=== PATIENT | female | born 1950 | race Caucasian/White ===

== ENCOUNTER → 2020-05-12 10:16 | Outpatient (BNVA) | payer MEDICARE, SELFPAY | PROVIDERS: PCP Internal Medicine; Visit Provider Internal Medicine | DX: J84.10 Pulmonary fibrosis, unspecified (principal); J44.9 Chronic obstructive pulmonary disease, unspecified; R05 Cough | CPT/HCPCS: 99212 ==

== ENCOUNTER 2020-06-07 11:47 | Outpatient (REF) | payer MEDICARE, SELFPAY ==
--- NOTE | 2020-06-07 12:37 | XR_ITS ---
EXAMINATION: XR SINUSES CLINICAL INFORMATION: Left cheek pain. Evaluate for sinusitis. COMPARISON: None TECHNIQUE: 4 views of the paranasal sinuses FINDINGS: The paranasal sinuses are well aerated and clear. No opacification or air-fluid levels to suggest sinusitis is seen. Bony structures are unremarkable. XR/XR sinus <3V IMPRESSION: Unremarkable examination.
[2020-06-07 13:31] LABS: MANUAL DIFF FLAG NO
[2020-06-07 13:37] LABS: Basophils Percent Auto 0.5 % (0-2); Eosinophils Absolute Auto 0.2 X10*3/uL (0.0-0.4); Eosinophils Percent Auto 1.9 % (0-4); Hemoglobin 13.5 g/dl (12.0-16.0); Imm Gran Abs Auto 0.04 X10*3/uL (0.00-0.03); Imm Gran Pct Auto 0.5 % (0.0-0.4); Lymphocytes Absolute Auto 2.2 X10*3/uL (1.2-4.9); Lymphocytes Percent Auto 25.2 % (20-40); Mean Corpuscular HGB Conc 32.1 g/dl (31.0-35.0); Mean Corpuscular Hemoglobin 31.7 pg (27.0-33.0); Mean Corpuscular Volume 98.6 fL (80-98); Mean Platelet Volume 9.6 fL (9.4-12.3); Monocytes Absolute Auto 0.8 X10*3/uL (0.1-1.2); Monocytes Percent Auto 9.3 % (2-11); Neutrophils Absolute Auto 5.5 X10*3/uL (2.0-8.3); Neutrophils Percent Auto 62.6 % (45-73); Platelet Count 230 X10*3/uL (160-400); Red Blood Count 4.26 X10*6/uL (4.20-5.50); Red Cell Distribution Width 12.8 % (11.0-16.0); White Blood Count 8.7 X10*3/uL (4.8-10.8)
[2020-06-07 13:52] LABS: Alanine Aminotransferase 12 U/L (0-31); Albumin Level 3.7 g/dL (3.5-5.0); Alkaline Phosphatase 124 U/L (39-117); Anion Gap 14 (12-20); Aspartate Amino Transferase 16 U/L (5-31); Bilirubin Total 0.3 mg/dL (0.0-1.0); Blood Urea Nitrogen 12 mg/dL (9-16); C Reactive Protein 4.85 mg/dL (< or = 0.50); Calcium 9.4 mg/dL (8.4-10.2); Carbon Dioxide 30 mmol/L (22-29); Chloride 106 mmol/L (96-108); Estimated Glomerular Filt Rate 52; Glucose Random 146 mg/dL (60-115); Potassium 3.9 mmol/l (3.3-5.1); Sodium 146 mmol/L (135-145); Total Protein 7.5 g/dL (6.5-8.0)
[2020-06-07 14:34] LABS: Glucose Urine UA NEG (NEG); Leukocyte Esterase Urine NEG (NEG); Nitrite Urine NEG (NEG); Specific Gravity - Urine 1.025 (1.005-1.025); Urine Blood NEG (NEG); Urine Ketones 5 MG/DL (NEG); Urine Protein NEG (NEG-TRACE)
[2020-06-07 14:41] LABS: Appearance Urine CLEAR; Color Urine YELLOW
== END 2020-06-07 11:48 | disposition home or self-care (01) ==
LOC: HO.LAB 11:47
PROVIDERS: PCP Internal Medicine; Visit Provider Internal Medicine
DX: R07.89 Other chest pain (principal); J45.909 Unspecified asthma, uncomplicated; R10.9 Unspecified abdominal pain; N18.9 Chronic kidney disease, unspecified
CPT/HCPCS: 36415; 70210; 80053; 81003; 85025; 86140; 87086

== ENCOUNTER 2020-06-08 14:57 | Emergency (ER) | payer MEDICARE, SELFPAY ==
[2020-06-08 19:16] VITALS: BP 151/92; PULSE 86; RESP 18; TEMP 36.9; O2SAT 94; BMI 30.2
[2020-06-08 23:25] VITALS: BP 176/90; PULSE 78; RESP 16; TEMP 37; O2SAT 94
--- NOTE | 2020-06-08 23:26 | ECG_ITS ---
Test Reason : ABDNORMAL LABS Blood Pressure : / mmHG Vent. Rate : 074 BPM Atrial Rate : 074 BPM P-R Int : 124 ms QRS Dur : 084 ms QT Int : 336 ms P-R-T Axes : 050 012 033 degrees QTc Int : 372 ms Normal sinus rhythm Possible Left atrial enlargement Nonspecific ST and T wave abnormality Abnormal ECG When compared with ECG of 02-FEB-2018 21:15, Nonspecific T wave abnormality now evident in Inferior leads Nonspecific T wave abnormality, worse in Lateral leads QT has shortened Referred By: Pratibha Egan Electronically Signed By:KARLA COFFEY MD
--- NOTE | 2020-06-08 23:30 | ED.ABDPAIN ---
HPI - Abdominal Pain General Chief Complaint: Recheck/Abnormal Lab/Rx Stated Complaint: abd pain Time Seen by Provider: 06/08/20 23:17 Source: patient Mode of arrival: ambulatory Limitations: no limitations History of Present Illness HPI narrative: Patient comes to emergency room accompanied by her daughter. Patient states that for 3 weeks she has been complaining of bilateral lower quadrant pain. Patient states that she has tried Pepto-Bismol to help the pain but it is not working. Patient also tried milk of magnesia since she does not know if she is constipated. Patient states over the last week the pain has gradually been getting worse. Patient denies vomiting, no nausea. Patient states the pain started gradually but over the last week it has become worse. Related Data Home Medications Medication Instructions Recorded Confirmed albuterol sulfate 90 mcg/actuation 2 puff INHALATION Q6H PRN 05/12/20 aerosol inhaler benzonatate 200 mg capsule 200 mg PO TID 05/12/20 donepezil 5 mg tablet 5 mg PO DAILY 05/12/20 famotidine 40 mg tablet 40 mg PO DAILY 05/12/20 montelukast 10 mg tablet 10 mg PO DAILY 05/12/20 sertraline 50 mg tablet 50 mg PO DAILY 05/12/20 Previous Rx's Medication Instructions Recorded benzonatate 200 mg capsule 200 mg PO BID-TID PRN 30 Days #60 05/12/20 cap fluticasone propionate 110 2 puff INHALATION BID 30 Days #12 g 05/12/20 mcg/actuation HFA aerosol inhaler salmeterol 50 mcg/dose blister 1 inh INHALATION Q12H 30 Days #60 05/12/20 powder for inhalation ea prednisone 5 mg tablet See Rx Instructions PO .COMPLEX 05/26/20 #35 tab budesonide 180 mcg/actuation 1 inh INHALATION BID 30 Days #1 ea 05/27/20 breath activated powder inhaler ciprofloxacin HCl 500 mg PO BID #13 tab 06/09/20 metronidazole 500 mg PO BID #13 tab 06/09/20 tramadol 50 mg PO Q8H PRN #10 tab 06/09/20 Allergies Allergy/AdvReac Type Severity Reaction Status Date / Time latex [LATEX] Allergy Intermediate RASH Verified 05/12/20 10:28 Review of Systems Review of Systems Constitutional : No Weight loss, No Fever, No Chills, No Night Sweats, No Fatigue, No Malaise ENT/Mouth : No Hearing loss, No Ear Pain, No Nasal Congestion, No Sinus Pain, No Hoarseness, No sore throat, No Rhinorrhea, No Swallowing Difficulty Eyes: No Eye Pain, No Swelling, No Redness, No Foreign Body, No Discharge, No Vision Changes Cardiovascular : No Chest Pain, No SOB, No Dyspnea on Exertion, No Orthopnea, No Edema, No Palpitations Respiratory : Chronic Cough from COPD and pulmonary fibrosis, No Sputum, chronic Wheezing without exacerbation, No Smoke Exposure, No Dyspnea Gastrointestinal : Occasional Nausea, No Vomiting, No Diarrhea, No Constipation, no hematochezia, no melena, complaining of sharp bilateral lower quadrant pain Genitourinary : no irregular bleeding, No Dysuria, No Urinary Frequency, No Hematuria, No Urinary Incontinence, No Urgency, No Flank Pain, No Urinary Flow Changes, No Hesitancy Musculoskeletal : No joint pain, No Myalgias, No Joint Swelling Skin : No Skin Lesions, No rash Neuro : No Weakness, No Numbness, No Paresthesias, No Loss of Consciousness, No Dizziness, No Headache Psych : No Anxiety/Panic, No Depression, No SI/HI/AH/VH, No Social Issues, Heme/Lymph: No Bruising, No Bleeding,No Lymphadenopathy Endocrine : No Polyuria, No Polydipsia, No Temperature Intolerance Physical Exam Vital Signs: Vital Signs: Last Vital Signs Temp 98.6 F 06/08/20 23:25 Pulse 78 06/08/20 23:25 Resp 16 06/08/20 23:25 BP 176/90 H 06/08/20 23:25 Pulse Ox 94 06/08/20 23:25 Body Mass Index 30.2 Appearance: Alert. Oriented X3. No acute distress. Very anxious, tearful Eyes: Pupils equal, round and reactive to light. ENT: Pharynx normal. Neck: Normal inspection. Neck supple. No lymph nodes noted. No crepitus CVS: Normal heart rate and rhythm. Pulses normal. Normal S1 and S2 Respiratory: No respiratory distress. Breath sounds normal. Mild bilateral Wheezing. No rales Abdomen: Soft, tender to palpation over both lower quadrants, worse on the right lower quadrant, No rigidity. No distention. good BS x4 Skin: Skin warm and dry. Normal skin color. Normal skin turgor. Extremities: No lower extremity edema. No lower extremity edema. No Lacerations. No Rash Neuro: Oriented X 3. No motor deficit. No sensory deficit. Moving all extermities. No slurred speech. Course Course Course Narrative: On abdominal CT scan, it was noted the patient's lung bases look abnormal, therefore we ordered a chest CT as well. I discussed the CT scan with the patient, patient has likely diverticulitis. Patient states that she feels much better now after the IV medication. I discussed with the patient staying in the hospital for pain control versus being discharged home with p.o. antibiotics, patient decided to be discharged home. First dose of levofloxacin and Flagyl was given in the emergency room. Patient instructed to lemon picker her antibiotics tomorrow in her pharmacy. MDM - Abdominal Pain Lab Data Result diagrams: 06/08/20 23:37 06/08/20 23:37 Labs: Lab Results 06/08/20 06/08/20 06/08/20 Range/Units 23:37 23:37 23:37 WBC 9.6 (4.8-10.8) X10*3/uL RBC 3.98 L (4.20-5.50) X10*6/uL Hgb 12.9 (12.0-16.0) g/dl Hct 38.6 (37-47) % MCV 97.0 (80-98) fL MCH 32.4 (27.0-33.0) pg MCHC 33.4 (31.0-35.0) g/dl RDW 12.7 (11.0-16.0) % Plt Count 197 (160-400) X10*3/uL MPV 9.1 L (9.4-12.3) fL Immature Gran % (Auto) 0.5 H (0.0-0.4) % Neut % (Auto) 62.5 (45-73) % Lymph % (Auto) 26.7 (20-40) % [place] % (Auto) 8.5 (2-11) % Eos % (Auto) 1.5 (0-4) % Baso % (Auto) 0.3 (0-2) % Lymph # (Auto) 2.6 (1.2-4.9) X10*3/uL [place] # (Auto) 0.8 (0.1-1.2) X10*3/uL Eos # (Auto) 0.1 (0.0-0.4) X10*3/uL Baso # (Auto) 0.0 (0.0-0.2) X10*3/uL Abs Immat Gran (auto) 0.05 H (0.00-0.03) X10*3/uL Absolute Neuts (auto) 6.0 (2.0-8.3) X10*3/uL Absolute Nucleated RBC 0.000 (0.0-0.012) X10*3/uL Nucleated RBC % (auto) 0.0 (0.0-0.2) /100WBC Sodium 144 (135-145) mmol/L Potassium 3.8 (3.3-5.1) mmol/l Chloride 105 (96-108) mmol/L Carbon Dioxide 29 (22-29) mmol/L Anion Gap 14 (12-20) BUN 14 (9-16) mg/dL Creatinine 0.94 (0.5-1.4) mg/dL Estim Creat Clear Calc 46.7 Estimated GFR 59 Random Glucose 94 D (60-115) mg/dL Calcium 9.2 (8.4-10.2) mg/dL Total Bilirubin 0.4 (0.0-1.0) mg/dL Direct Bilirubin 0.2 (0.0-0.5) mg/dL AST 14 (5-31) U/L ALT 11 (0-31) U/L Alkaline Phosphatase 120 H (39-117) U/L Total Protein 7.4 (6.5-8.0) g/dL Albumin 3.7 (3.5-5.0) g/dL Lipase 14 (8-78) U/L Imaging Data Chest and abdomen CT: Radiologist's impression: FINDINGS: -CHEST- LUNG: Again seen are diffuse interstitial opacities in both lungs with both interlobular and intralobular septal thickening, somewhat more pronounced at the bases. No significant superimposed airspace consolidation. Subtle micronodular opacities are present in both lungs, most pronounced in the lung apices. There is a mild bronchiectasis are evident in the lower lobes. No dense airspace consolidation. There is subtle peripheral nodularity and architectural distortion along the fissures. Small cystic changes are present at the periphery of the right lower lobe medially, not yet constituting honeycombing. MEDIASTINUM: There is mild left atrial enlargement. No pericardial effusion. Prevascular lymph nodes measure up to 0.9 cm in diameter without deven adenopathy. No hilar adenopathy. Thyroid gland and esophagus are unremarkable. PERICARDIUM/PLEURA: No significant effusion. No pleural mass or thickening. CHEST WALL/AXILLA: Unremarkable. -ABDOMEN/PELVIS- LIVER, GALLBLADDER, BILIARY TREE: The liver is normal in size, shape, and attenuation. No focal hepatic lesion or biliary ductal dilatation is present. Gallbladder is surgically absent. Common bile duct is mildly dilated (9 mm), likely related to prior cholecystectomy. PANCREAS: Normal; no mass or surrounding fluid. SPLEEN: Normal size. No focal lesion. ADRENAL GLANDS: Normal; no mass. KIDNEYS AND URETERS: Unchanged 2.2 cm cyst at the right upper renal pole, fluid density. Parapelvic cyst is present in the left renal sinus. No hydronephrosis or nephrolithiasis. Mild left renal cortical thinning. Distal ureters are partially obscured by the metal artifact from the hip prosthesis. BLADDER: Partially obscured by the metal artifact from the hip prostheses. No focal abnormalities are identified. GASTROINTESTINAL TRACT: There is wall thickening at the sigmoid colon with severe diverticulosis. Mild fat stranding is seen within this region as seen on coronal images, most notably. Assessment is somewhat obscured by the artifact emanating from the hip prostheses. Mild acute diverticulitis is suspected, superimposed upon chronic diverticulosis with hypertrophy of the muscularis propria. Stomach, small bowel, and colon are normal in caliber. Small hiatal hernia. Appendix is normal. ABDOMINAL WALL: No significant hernia is appreciated. VASCULATURE: Atherosclerotic calcifications are present in the abdominal aorta and iliac arteries. No aneurysmal dilatation. LYMPH NODES: No adenopathy.. PELVIC VISCERA: Uterus and ovaries are obscured by the metal artifact from hip prostheses. Uterus may be surgically absent. OSSEUS STRUCTURES: Prosthetic components of the total hip arthroplasties appear appropriately positioned without acute complications. Mild degenerative spondylosis is present in the thoracolumbar spine. No acute osseous findings. CT/CT abdomen pelvis w con IMPRESSION: 1. Marked sigmoid diverticulosis with mild surrounding fat stranding, concerning for acute diverticulitis. Assessment is somewhat limited by artifact from the adjacent hip prostheses. 2. Progression of the chronic interstitial lung disease in the chest with increased internal interlobular septal thickening and subtle areas of bronchiectasis. In the absence of clear honeycombing, the appearance is not specific, though UIP pattern would be most likely. 3. Mild left atrial enlargement. ECG Data Attestation: I personally reviewed and interpreted this ECG as follows: (Sinus rhythm , heart rate 74, QTC 372, no ST segment depressions or elevations, no T-wave inversions.) Discharge Plan Discharge Clinical Impression: Diverticulitis Patient Disposition: Home, Self-Care Instructions: Diverticulitis (ED), Diverticulitis Diet (ED) Additional Instructions: If you have any worsening abdominal pain, please return to emergency room. Please follow-up with your primary care physician tomorrow. If you have any worsening or new symptoms, please return to the emergency room or call 911 Prescriptions: New metronidazole 500 mg tablet 500 mg PO BID Qty: 13 RF: 0 ciprofloxacin HCl 500 mg tablet 500 mg PO BID Qty: 13 RF: 0 tramadol 50 mg tablet 50 mg PO Q8H PRN (Reason: pain) Qty: 10 RF: 0 No Action prednisone 5 mg tablet See Rx Instructions PO .COMPLEX Qty: 35 RF: 1 Pulmicort Flexhaler 180 mcg/actuation aerosol powdr breath activated 1 inh inhalation BID 30 Days Qty: 1 RF: 3 famotidine 40 mg tablet 40 mg PO DAILY RF: 0 sertraline 50 mg tablet 50 mg PO DAILY RF: 0 montelukast 10 mg tablet 10 mg PO DAILY RF: 0 donepezil 5 mg tablet 5 mg PO DAILY RF: 0 benzonatate 200 mg capsule 200 mg PO TID RF: 0 albuterol sulfate [Ventolin HFA] 90 mcg/actuation HFA aerosol inhaler 2 puff inhalation Q6H PRNRF: 0 Serevent Diskus 50 mcg/dose blister with device 1 inh inhalation Q12H 30 Days Qty: 60 RF: 5 benzonatate 200 mg capsule 200 mg PO BID-TID PRN (Reason: cough) 30 Days Qty: 60 RF: 5 Flovent HFA 110 mcg/actuation HFA aerosol inhaler 2 puff inhalation BID 30 Days Qty: 12 RF: 5 Interventions: ED Discharge Assessment Last Done: 06/09/20 02:35 Discharge Date/Time: 06/09/20 02:36 [facility] Past Medical History Medical History COPD (chronic obstructive pulmonary disease) Cough Pulmonary fibrosis Social History Social History Advance Directives: No
[2020-06-08] MEDS: ondansetron HCL 4 MG/2 ML VIAL IVPUSH (23:39)
[2020-06-08] MEDS: 0.9 % Sodium Chloride 1,000 ML 999 ML IVCONT (23:39)
[2020-06-08] MEDS: Morphine Sulfate 2 MG/ML CARTRIDGE IVPUSH (23:39)
[2020-06-08 23:45] LABS: MANUAL DIFF FLAG NO
[2020-06-08 23:46] LABS: Basophils Percent Auto 0.3 % (0-2); Eosinophils Absolute Auto 0.1 X10*3/uL (0.0-0.4); Eosinophils Percent Auto 1.5 % (0-4); Hematocrit 38.6 % (37-47); Hemoglobin 12.9 g/dl (12.0-16.0); Imm Gran Abs Auto 0.05 X10*3/uL (0.00-0.03); Imm Gran Pct Auto 0.5 % (0.0-0.4); Lymphocytes Absolute Auto 2.6 X10*3/uL (1.2-4.9); Lymphocytes Percent Auto 26.7 % (20-40); Mean Corpuscular HGB Conc 33.4 g/dl (31.0-35.0); Mean Corpuscular Hemoglobin 32.4 pg (27.0-33.0); Mean Platelet Volume 9.1 fL (9.4-12.3); Monocytes Absolute Auto 0.8 X10*3/uL (0.1-1.2); Monocytes Percent Auto 8.5 % (2-11); Neutrophils Percent Auto 62.5 % (45-73); Platelet Count 197 X10*3/uL (160-400); Red Blood Count 3.98 X10*6/uL (4.20-5.50); Red Cell Distribution Width 12.7 % (11.0-16.0); White Blood Count 9.6 X10*3/uL (4.8-10.8)
--- NOTE | 2020-06-09 | CT_ITS ---
EXAMINATION: CT CHEST WITH CONTRAST CT ABDOMEN AND PELVIS WITH CONTRAST CLINICAL INFORMATION: Reason for Exam bilateral lower quadrant pain, worse RLQ . Abnormal lung seen on abdominal CT. COMPARISON: 11/21/2019 TECHNIQUE: Multidetector volumetric imaging was performed from the thoracic inlet through the pubic symphysis following administration of intravenous contrast material. A total of 85.3 mL Omnipaque 300 was administered intravenously. Sagittal and coronal images were reformatted. This CT examination was performed using dose optimization techniques as appropriate, variously including the following: *Automated exposure control *Adjustment of mA and/or kV according to patient size (this includes techniques or standardized protocols for targeted exams where dose is matched to indication/reason for exam; i.e. extremities or head) *Use of iterative reconstruction technique DOSE: 824 mGy-cm FINDINGS: -CHEST- LUNG: Again seen are diffuse interstitial opacities in both lungs with both interlobular and intralobular septal thickening, somewhat more pronounced at the bases. No significant superimposed airspace consolidation. Subtle micronodular opacities are present in both lungs, most pronounced in the lung apices. There is a mild bronchiectasis are evident in the lower lobes. No dense airspace consolidation. There is subtle peripheral nodularity and architectural distortion along the fissures. Small cystic changes are present at the periphery of the right lower lobe medially, not yet constituting honeycombing. MEDIASTINUM: There is mild left atrial enlargement. No pericardial effusion. Prevascular lymph nodes measure up to 0.9 cm in diameter without deven adenopathy. No hilar adenopathy. Thyroid gland and esophagus are unremarkable. PERICARDIUM/PLEURA: No significant effusion. No pleural mass or thickening. CHEST WALL/AXILLA: Unremarkable. -ABDOMEN/PELVIS- LIVER, GALLBLADDER, BILIARY TREE: The liver is normal in size, shape, and attenuation. No focal hepatic lesion or biliary ductal dilatation is present. Gallbladder is surgically absent. Common bile duct is mildly dilated (9 mm), likely related to prior cholecystectomy. PANCREAS: Normal; no mass or surrounding fluid. SPLEEN: Normal size. No focal lesion. ADRENAL GLANDS: Normal; no mass. KIDNEYS AND URETERS: Unchanged 2.2 cm cyst at the right upper renal pole, fluid density. Parapelvic cyst is present in the left renal sinus. No hydronephrosis or nephrolithiasis. Mild left renal cortical thinning. Distal ureters are partially obscured by the metal artifact from the hip prosthesis. BLADDER: Partially obscured by the metal artifact from the hip prostheses. No focal abnormalities are identified. GASTROINTESTINAL TRACT: There is wall thickening at the sigmoid colon with severe diverticulosis. Mild fat stranding is seen within this region as seen on coronal images, most notably. Assessment is somewhat obscured by the artifact emanating from the hip prostheses. Mild acute diverticulitis is suspected, superimposed upon chronic diverticulosis with hypertrophy of the muscularis propria. Stomach, small bowel, and colon are normal in caliber. Small hiatal hernia. Appendix is normal. ABDOMINAL WALL: No significant hernia is appreciated. VASCULATURE: Atherosclerotic calcifications are present in the abdominal aorta and iliac arteries. No aneurysmal dilatation. LYMPH NODES: No adenopathy.. PELVIC VISCERA: Uterus and ovaries are obscured by the metal artifact from hip prostheses. Uterus may be surgically absent. OSSEUS STRUCTURES: Prosthetic components of the total hip arthroplasties appear appropriately positioned without acute complications. Mild degenerative spondylosis is present in the thoracolumbar spine. No acute osseous findings. CT/CT abdomen pelvis w con IMPRESSION: 1. Marked sigmoid diverticulosis with mild surrounding fat stranding, concerning for acute diverticulitis. Assessment is somewhat limited by artifact from the adjacent hip prostheses. 2. Progression of the chronic interstitial lung disease in the chest with increased internal interlobular septal thickening and subtle areas of bronchiectasis. In the absence of clear honeycombing, the appearance is not specific, though UIP pattern would be most likely. 3. Mild left atrial enlargement.
[2020-06-09 00:17] LABS: Alanine Aminotransferase 11 U/L (0-31); Albumin Level 3.7 g/dL (3.5-5.0); Alkaline Phosphatase 120 U/L (39-117); Anion Gap 14 (12-20); Aspartate Amino Transferase 14 U/L (5-31); Bilirubin Direct 0.2 mg/dL (0.0-0.5); Bilirubin Total 0.4 mg/dL (0.0-1.0); Blood Urea Nitrogen 14 mg/dL (9-16); Calcium 9.2 mg/dL (8.4-10.2); Carbon Dioxide 29 mmol/L (22-29); Chloride 105 mmol/L (96-108); Creatinine Clr Calc Pharmacy 46.7; Estimated Glomerular Filt Rate 59; Glucose Random 94 mg/dL (60-115); Lipase 14 U/L (8-78); Potassium 3.8 mmol/l (3.3-5.1); Sodium 144 mmol/L (135-145); Total Protein 7.4 g/dL (6.5-8.0)
--- NOTE | 2020-06-09 01:03 | PC.NURSE ---
update given to family in [place].
[2020-06-09] MEDS: iohexoL 350 MG/ML 100 ML INFUS..BTL 85 ML IV (01:07)
[2020-06-09] MEDS: metroNIDAZOLE 500 MG TABLET PO (02:22)
[2020-06-09] MEDS: levoFLOXacin 500 MG TABLET PO (02:23)
== END 2020-06-09 02:36 | disposition home or self-care (01) ==
PROVIDERS: Emergency Provider Emergency Medicine; PCP Internal Medicine
DX: K57.32 Diverticulitis of large intestine without perforation or abscess without bleeding (principal); R10.30 Lower abdominal pain, unspecified; R79.89 Other specified abnormal findings of blood chemistry; Z79.899 Other long term (current) drug therapy
CPT/HCPCS: 36415; 71260; 74177; 80048; 80076; 83690; 85025; 93005; 96361; 96374; 96375; 99283; 99284; J2270; J2405; Q9967

== ENCOUNTER 2020-06-21 11:41 | Outpatient (REF) | payer MEDICARE, SELFPAY ==
[2020-06-21 13:50] LABS: MANUAL DIFF FLAG NO
[2020-06-21 13:59] LABS: Basophils Absolute Auto 0.1 X10*3/uL (0.0-0.2); Basophils Percent Auto 0.5 % (0-2); Eosinophils Absolute Auto 0.3 X10*3/uL (0.0-0.4); Eosinophils Percent Auto 2.5 % (0-4); Hematocrit 39.5 % (37-47); Hemoglobin 12.5 g/dl (12.0-16.0); Imm Gran Abs Auto 0.09 X10*3/uL (0.00-0.03); Imm Gran Pct Auto 0.8 % (0.0-0.4); Lymphocytes Absolute Auto 2.1 X10*3/uL (1.2-4.9); Lymphocytes Percent Auto 19.1 % (20-40); Mean Corpuscular HGB Conc 31.6 g/dl (31.0-35.0); Mean Corpuscular Hemoglobin 30.9 pg (27.0-33.0); Mean Corpuscular Volume 97.8 fL (80-98); Mean Platelet Volume 9.7 fL (9.4-12.3); Monocytes Absolute Auto 0.9 X10*3/uL (0.1-1.2); Monocytes Percent Auto 7.8 % (2-11); Neutrophils Absolute Auto 7.6 X10*3/uL (2.0-8.3); Neutrophils Percent Auto 69.3 % (45-73); Platelet Count 332 X10*3/uL (160-400); Red Blood Count 4.04 X10*6/uL (4.20-5.50); Red Cell Distribution Width 12.8 % (11.0-16.0)
[2020-06-21 14:14] LABS: Glucose Urine UA NEG (NEG); Leukocyte Esterase Urine NEG (NEG); Nitrite Urine NEG (NEG); PH 5.5 (5.0-8.0); Specific Gravity - Urine >= 1.030 (1.005-1.025); Urine Blood NEG (NEG); Urine Ketones NEG (NEG); Urine Protein NEG (NEG-TRACE)
[2020-06-21 14:19] LABS: Alanine Aminotransferase 7 U/L (0-31); Albumin Level 3.4 g/dL (3.5-5.0); Alkaline Phosphatase 92 U/L (39-117); Anion Gap 14 (12-20); Aspartate Amino Transferase 11 U/L (5-31); Bilirubin Total 0.3 mg/dL (0.0-1.0); Blood Urea Nitrogen 8 mg/dL (9-16); C Reactive Protein 7.59 mg/dL (< or = 0.50); Calcium 9.2 mg/dL (8.4-10.2); Carbon Dioxide 28 mmol/L (22-29); Chloride 106 mmol/L (96-108); Estimated Glomerular Filt Rate > 60; Glucose Random 138 mg/dL (60-115); Sodium 144 mmol/L (135-145); Total Protein 7.3 g/dL (6.5-8.0)
[2020-06-21 14:22] LABS: Appearance Urine HAZY; Color Urine YELLOW
== END 2020-06-21 11:42 | disposition home or self-care (01) ==
LOC: HO.10HDL 11:41
PROVIDERS: Visit Provider Internal Medicine
DX: R10.9 Unspecified abdominal pain (principal); I10 Essential (primary) hypertension; J45.909 Unspecified asthma, uncomplicated; K57.90 Diverticulosis of intestine, part unspecified, without perforation or abscess without bleeding
CPT/HCPCS: 36415; 80053; 81003; 85025; 86140; 87086

== ENCOUNTER 2020-06-23 09:18 | Outpatient (REF) | payer MEDICARE, SELFPAY ==
--- NOTE | 2020-06-23 09:22 | CT_ITS ---
EXAMINATION: CT ABDOMEN AND PELVIS WITHOUT CONTRAST CLINICAL INFORMATION: Abdominal pain. COMPARISON: CT abdomen and pelvis with contrast 06/09/2020 TECHNIQUE: Multidetector volumetric imaging was performed from the superior aspect of the liver through the pubic symphysis. Sagittal and coronal reformatted images were obtained on the technologist's workstation. This CT examination was performed using dose optimization techniques as appropriate, variously including the following: *Automated exposure control *Adjustment of mA and/or kV according to patient size (this includes techniques or standardized protocols for targeted exams where dose is matched to indication/reason for exam; i.e. extremities or head) *Use of iterative reconstruction technique DLP: 452 mGy-cm FINDINGS: LUNG BASES: There is a increased lucency in both lung bases with prominent interstitial markings suggestive of emphysema with chronic scarring. Heart size is normal. There is small hiatal hernia. LIVER, GALLBLADDER, AND BILIARY TREE: The liver is normal in size, shape, and attenuation. No focal hepatic lesion or biliary ductal dilatation is present. There are surgical anderson in the right upper quadrant likely from previous cholecystectomy. A few calcified densities are seen in the patricio hepatis region likely lymph nodes PANCREAS: Unremarkable. SPLEEN: Unremarkable. ADRENAL GLANDS: Unremarkable. KIDNEYS AND URETERS: The kidneys are normal in size, shape, and attenuation. No hydronephrosis, hydroureter, or calculi seen. No perinephric stranding. There is a 2.3 cm cyst upper pole right kidney. There are para pelvic small cysts in left kidney. BLADDER: Unremarkable. GASTROINTESTINAL TRACT: There is scattered oral contrast and stool seen throughout the colon as well as diffuse scattered diverticuli. There is moderate mural thickening involving the sigmoid colon with pericolic fat stranding suggestive of early diverticulitis. There is no drainable fluid collection or free air seen. ABDOMINAL WALL: No significant hernia is appreciated. LYMPH NODES: Normal. VASCULAR: The distal abdominal aorta measures 2.1 x 2.0 cm. No dilatation seen. PELVIC VISCERA: Significant beam hardening artifact from bilateral hip prosthesis limiting evaluation of lower pelvis. OSSEOUS STRUCTURES: No lytic or sclerotic process seen. There is significant osteopenia involving the sacrum with CT/CT abdomen pelvis wo con IMPRESSION: Diffuse colonic diverticulosis with mild cardiac constipation. There is acute sigmoid diverticulitis without perforation, collection of proximal bowel obstruction. I lateral renal cysts. No radiopaque calculi or hydronephrosis. Likely cholecystectomy with surgical anderson seen in the right upper quadrant. Emphysema with chronic interstitial changes in both lower lobes. Suspect small hiatal hernia.
== END 2020-06-23 09:19 | disposition home or self-care (01) ==
LOC: HO.CT 09:18
PROVIDERS: Visit Provider Internal Medicine
DX: R10.11 Right upper quadrant pain (principal)
CPT/HCPCS: 74176

== ENCOUNTER 2020-06-25 14:33 | Outpatient (REF) | payer MEDICARE, SELFPAY ==
[2020-06-25 15:23] LABS: Influenza A PCR NEGATIVE (Negative); Influenza B PCR NEGATIVE (Negative); Resp Syncy Virus RNA Qual PCR NEGATIVE (Negative); SARS COV2 PCR INHOUSE NEGATIVE (Negative)
== END 2020-06-25 14:34 | disposition home or self-care (01) ==
LOC: HO.LNP 14:33
PROVIDERS: Visit Provider Internal Medicine
DX: R05 Cough (principal); M79.10 Myalgia, unspecified site; Z20.822 Contact with and (suspected) exposure to COVID-19
CPT/HCPCS: 0241U

== ENCOUNTER → 2020-07-08 12:51 | Outpatient (BNVA) | payer MEDICARE, SELFPAY | PROVIDERS: PCP Internal Medicine; Visit Provider Surgery | DX: K57.32 Diverticulitis of large intestine without perforation or abscess without bleeding (principal) | CPT/HCPCS: 99202 ==

== ENCOUNTER 2020-07-13 10:43 | Inpatient (IN) | payer MEDICARE, SELFPAY ==
[2020-07-08 15:39] VITALS: BMI 27.1
--- NOTE | 2020-07-09 12:56 | HO.ANESPROP2 ---
Documented by User: Aranza Luney 07/09/20 13:08 HPI - Anesthesia Eval Consult details Narrative: 70yo F for Colon Resection Mod severe ILD/Pulm Fibrosis with severe restrictive lung disease. Stable at last pulm OV 04/2020. Case reviewed with Dr Xenia TOMLINSON Active Problems Active Problems: All Active Problems (Updated 07/08/20 @ 14:56 by Rudi Brady MD) Sigmoid diverticulitis (Acute) Cough (Acute) Pulmonary fibrosis (Acute) COPD (chronic obstructive pulmonary disease) (Acute) Past Medical History Medical History COPD (chronic obstructive pulmonary disease) Cough Dementia Pulmonary fibrosis Sigmoid diverticulitis Surgical History Surgical History H/O: hysterectomy History of bilateral hip replacements History of cholecystectomy Social History Social History Alcohol intake: never Smoking Status: Never smoker Use of substances other than those prescribed or required for medical reasons: No Advance Directives: No Advance Directives Information Provided: No Meds Allergies Allergy/AdvReac Type Severity Reaction Status Date / Time latex [LATEX] Allergy Intermediate RASH Verified 05/12/20 10:28 Home Medications Medication Instructions Recorded Confirmed Last Taken Type benzonatate 200 mg capsule 200 mg PO TID 05/12/20 07/08/20 Unknown History donepezil 5 mg tablet 5 mg PO DAILY 05/12/20 07/08/20 Unknown History famotidine 40 mg tablet 40 mg PO DAILY 05/12/20 07/08/20 Unknown History montelukast 10 mg tablet 10 mg PO DAILY 05/12/20 07/08/20 Unknown History sertraline 50 mg tablet 50 mg PO DAILY 05/12/20 07/08/20 Unknown History amoxicillin 500 mg-potassium 1 tab PO BID 07/08/20 07/08/20 Unknown History clavulanate 125 mg tablet Exam Exam Date and Time: July 09, 2020 1256 Height,Weight and Vital Signs: Height 5 ft 1 in Weight 65 kg Pertinent Lab Results Pertinent Lab Results: Laboratory Tests 06/21/20 06/21/20 11:45 11:45 WBC 11.0 H Hgb 12.5 Hct 39.5 Plt Count 332 D Sodium 144 Potassium 4.0 Chloride 106 Carbon Dioxide 28 BUN 8 L Creatinine 0.84 Narrative Narrative: EKG 05/2020 *Cannot access 2018 waveform* Normal sinus rhythm Possible Left atrial enlargement Nonspecific ST and T wave abnormality Abnormal ECG When compared with ECG of 02-FEB-2018 21:15, Nonspecific T wave abnormality now evident in Inferior leads Nonspecific T wave abnormality, worse in Lateral leads QT has shortened PFT 11/2019 Severe restrictive vent defect with no bronchodilator response CT chest w con 05/2020 IMPRESSION: 1. Marked sigmoid diverticulosis with mild surrounding fat stranding, concerning for acute diverticulitis. Assessment is somewhat limited by artifact from the adjacent hip prostheses. 2. Progression of the chronic interstitial lung disease in the chest with increased internal interlobular septal thickening and subtle areas of bronchiectasis. In the absence of clear honeycombing, the appearance is not specific, though UIP pattern would be most likely. 3. Mild left atrial enlargement. Assessment and Plan Assessment Anesthesia Assessment: Chart Reviewed Documented by User: Yandy Fletcher 07/13/20 11:56 [facility] Past Medical History Medical History COPD (chronic obstructive pulmonary disease) Cough Dementia Pulmonary fibrosis Sigmoid diverticulitis Surgical History Surgical History H/O: hysterectomy History of bilateral hip replacements History of cholecystectomy Social History Social History Alcohol intake: never Smoking Status: Never smoker Use of substances other than those prescribed or required for medical reasons: No Advance Directives: No Advance Directives Information Provided: No Meds Allergies Allergy/AdvReac Type Severity Reaction Status Date / Time latex [LATEX] Allergy Intermediate RASH Verified 05/12/20 10:28 Home Medications Medication Instructions Recorded Confirmed Last Taken Type benzonatate 200 mg capsule 200 mg PO TID 05/12/20 07/08/20 Unknown History donepezil 5 mg tablet 5 mg PO DAILY 05/12/20 07/08/20 Unknown History famotidine 40 mg tablet 40 mg PO DAILY 05/12/20 07/08/20 Unknown History montelukast 10 mg tablet 10 mg PO DAILY 05/12/20 07/08/20 Unknown History sertraline 50 mg tablet 50 mg PO DAILY 05/12/20 07/08/20 Unknown History amoxicillin 500 mg-potassium 1 tab PO BID 07/08/20 07/08/20 Unknown History clavulanate 125 mg tablet Exam Airway Mallampati Class: I (Edentulous) TM Dist: >3cm Neck ROM: Full Denture: Upper and Lower Loose/Missing/Broken Teeth: Yes Heart: RRR Lungs: CTA Assessment and Plan Assessment Anesthesia Assessment: Anesthesia Plan Discussed and Chart Reviewed Final Anesthetic Review NPO: Yes ASA Class: III Final Preanesthetic Review: Meds/Allgs Chart Reviewed, Consent Obtained/Reviewed and Anes Risks/Benef Reviewed Patient Risk: High Procedure Risk: Intermediate Anesthetic Plan Anesthetic Plan: GA Disposition: Standard PACU
[2020-07-13] VITALS (13 sets, daily range): BP systolic 106–133; BP diastolic 58–76; PULSE 62–85; RESP 16–18; TEMP 36.3–36.9; O2SAT 94–100; BMI 27.3
[2020-07-13] MEDS: Lactated Ringers 1,000 ML 100 ML IVCONT ×2 (11:35→20:35)
[2020-07-13 11:36] LABS: COVID-19 Test Negative (Negative); IDNOW Serial# 9DD0AD1C
[2020-07-13] MEDS: Albuterol Sulfate (0.083%) 2.5 MG/3 ML VIAL.NEB INHALE (11:47)
--- NOTE | 2020-07-13 11:59 | MHC.SHP ---
Pre-Procedural Eval Section A The patient is an INPATIENT: No Changes since office visit: Yes Patient answered all questions; No Cold of Flu in the past 2 weeks, No New Medical Problems and No Changes in Medication The History & Physical has been completed within 30 days and I have reviewed it.: Yes Section B Chief Complaint: Diverticulitis of large intestine, Allergies: Allergies Allergy/AdvReac Type Severity Reaction Status Date / Time latex [LATEX] Allergy Intermediate RASH Verified 05/12/20 10:28 Plan Diagnosis/Plan: Unchanged I have reviewed the history and physical and performed a pertinent physical examination on my patient. No changes have occurred unless specified.
--- NOTE | 2020-07-13 12:24 | PC.NURSE ---
Scheduled updraft ordered for patient. Patient attempted to use inhaler as updraft replacement per Dr. Fletcher. Patient unsure of usage instructions due to being a new inhaler. Respiratory called and updraft administration done through them in isolation room.
--- NOTE | 2020-07-13 15:19 | P.OP_ITS ---
Operative Note Operative Note Date of Service: 07/13/20 Narrative: Preoperative diagnosis: Sigmoid diverticulitis without perforation or abscess Postoperative diagnosis: Same Procedure: Hand assisted laparoscopic sigmoid colectomy with colorectal anastomosis; mobilization of splenic flexure laparoscopically Surgeon: Rudi Brady MD Attorney At Law: Pura Tanner PA-C Anesthesia: General ET Indications for procedure: 70-year-old female presenting with history of persistent abdominal pain in left lower quadrant since new year's found on CT to have area of the sigmoid diverticulitis. The pain seems to be getting worse despite continuous antibiotics. Her most recent CT scan revealed increased thickening of the sigmoid colon but no abscess or perforation. She presents today for sigmoid colectomy. Operative findings: Patient was found to have nearly her entire sigmoid colon which was acutely inflamed due to diverticulitis. The bowel proximal and distal appeared fairly normal with only mild diverticulum. No abscess was encountered. Specimen: Sigmoid colon Estimated blood loss: 200 mL Complications: None Procedure details: Patient was brought to the OR placed in a supine position. After administering general anesthesia the patient was placed in a lithotomy position. The patient's abdomen was prepped with ChloraPrep and perineum prepped with Betadine. Patient was draped in a sterile fashion. A surgical time-out was called and the consent confirmed. Patient received preoperative antibiotics and Venodyne boots were in place. A lower midline incision measuring 7.5 cm was then created midway between the umbilicus and the pubic tubercle. This was carried out through subcutaneous tissue past the linea alba into the peritoneal cavity. A hand port was then inserted at this point. The abdomen was then inflated with CO2 to a pressure of 15 mm of mercury. A 5 mm port was then placed in the upper midline and a 2nd placed in the left upper quadrant. Patient was placed in a reverse Trendelenburg position rotated to the right. The left colon was then mobilized along the white line of Toldt this was continued superiorly to the splenic flexure. The splenic flexure was then further mobilized for the mid transverse colon distally. Dissection was then continued along the distal descending colon and sigmoid colon. Dense adhesions were noted to the pelvic sidewall due to the sigmoid diverticulitis. In addition omentum was densely adherent to the sigmoid colon at the area of diverticulitis. A loop of small bowel is also mildly adherent to the sigmoid colon. This was freed using LigaSure. When the sigmoid colon was fully mob ilized a window was created between the mesentery at the distal descending colon. Endo-MAIA stapler was then used to divide the bowel at this junction. LigaSure was then used to divide the mesentery proximal to distal. Dissection was continued down to the rectosigmoid junction. At this point the curved linear stapler was then used to divide the sigmoid colon just beyond the rectosigmoid junction. The specimen was removed and sent to pathology for further examination. At this point the left colon was checked for immobilization. Was determined that additional length was required therefore additional mobilization of the splenic flexure was performed. This resulted in adequate length of the distal colon to reach the rectal stump. At this point the distal colon was brought up through the hand port. The mesentery was cleared from the surrounding bowel wall. A pursestring clamp was then placed and a Prolene suture used create a pursestring. The distal bowel was then dilated using an EEA dilators. The bowel out passage of a 25 mm dilator with some difficulty. No further dilation was performed at this time. A 25 mm EEA stapler was then obtained. The anvil was placed in the distal left colon the pursestring tied. Remaining mesentery was dissected free from bowel wall at this time. At this point the patient was placed in a drawn the over a position and the anus and rectum dilated using the EEA Sizer. The stapling device was then inserted through the anus into the rectum and brought out through the staple line. This was then connected to the anvil and the stapler fired. The stapler fired correctly in 2 complete donuts were obtained. The anastomosis was checked for patency and leaks by instilling air into a pelvis filled with saline. No leak could be identified. The abdomen was then thoroughly irrigated and suctioned dry. The hand port in all the trocars were removed at this time. Fascia was closed at the midline incision using a running 1. Maxon suture. Subcutaneous tissue and dermis reapproximated using 3-0 Polysorb sutures. Skin was closed in all incisions using a skin stapler during. Sterile dressings were then applied. The patient tolerated the procedure well. Sponge, instrument, and needle counts reported as correct. The patient was transferred to PACU in stable condition.
--- NOTE | 2020-07-13 15:20 | PM.OP ---
Brief Operative Note Date of Service: 07/13/20 Pre-op diagnosis: sigmoid diverticulitis Post-op diagnosis: same Procedure: hand assisted laparoscopic sigmoid resection Surgeon: JAI BEE MD Anesthesia: GETA [employer] Contractor: Pura Tanner Estimated blood loss (mL): 200 IV fluids (mL): 1,800 Urine output (mL): 50 Pathology: other (SIGMOID COLON; EEA RINGS) Condition: stable Disposition: PACU
[2020-07-13] MEDS: oxyCODONE HCl Immed Release 5 MG TABLET PO (16:27)
[2020-07-13] MEDS: 0.9 % Sodium Chloride Flush 3 ML SYRINGE IVFLUSH (20:36)
[2020-07-13] MEDS: Heparin Sodium,Porcine 5,000 UNIT/ML VIAL 5000 UNIT SUBCUT (20:43)
[2020-07-14] VITALS (8 sets, daily range): BP systolic 93–145; BP diastolic 50–80; PULSE 62–92; RESP 16–20; TEMP 36.6–37.7; O2SAT 90–97
[2020-07-14] MEDS: Morphine Sulfate 4 MG/ML CARTRIDGE 3 MG IVPUSH ×3 (03:18→18:13)
[2020-07-14 04:59] LABS: MANUAL DIFF FLAG NO
[2020-07-14 05:01] LABS: Basophils Percent Auto 0.1 % (0-2); Hematocrit 32.3 % (37-47); Hemoglobin 10.4 g/dl (12.0-16.0); Imm Gran Pct Auto 0.6 % (0.0-0.4); Lymphocytes Absolute Auto 1.1 X10*3/uL (1.2-4.9); Lymphocytes Percent Auto 6.8 % (20-40); Mean Corpuscular HGB Conc 32.2 g/dl (31.0-35.0); Mean Corpuscular Volume 96.4 fL (80-98); Mean Platelet Volume 9.6 fL (9.4-12.3); Monocytes Percent Auto 6.2 % (2-11); Neutrophils Percent Auto 86.3 % (45-73); Platelet Count 263 X10*3/uL (160-400); Red Blood Count 3.35 X10*6/uL (4.20-5.50); Red Cell Distribution Width 12.9 % (11.0-16.0); White Blood Count 16.2 X10*3/uL (4.8-10.8)
[2020-07-14 05:31] LABS: Anion Gap 11 (12-20); Blood Urea Nitrogen 13 mg/dL (9-16); Calcium 8.5 mg/dL (8.4-10.2); Carbon Dioxide 28 mmol/L (22-29); Chloride 106 mmol/L (96-108); Creatinine Clr Calc Pharmacy 56.8; Estimated Glomerular Filt Rate > 60; Glucose Random 131 mg/dL (60-115); Potassium 3.9 mmol/L (3.3-5.1); Sodium 141 mmol/L (135-145)
[2020-07-14] MEDS: Lactated Ringers 1,000 ML 100 ML IVCONT ×2 (05:36→15:18)
--- NOTE | 2020-07-14 08:05 | PM.PNGS ---
Subjective Subjective Date of Service: 07/14/20 Interval history: Patient is awake and alert complaining of some mild to moderate incisional pain. She was told that she could not roll side to side in bed but feels she sleeps better on her side. She reports coughing some phlegm during the night. She denies nausea or vomiting. Physical Exam Vital Signs: Vital Signs: Last Vital Signs Temp 98.8 F 07/14/20 07:56 Pulse 62 07/14/20 07:56 Resp 20 07/14/20 07:56 BP 108/52 L 07/14/20 07:56 Pulse Ox 95 07/14/20 07:56 Body Mass Index 27.3 Const: General: cooperative, no acute distress and well developed Nutritional Appearance: well nourished Eyes: Sclerae: sclerae normal EOM: EOMs intact bilaterally GI: Other: Abdominal wounds are clean, dry, and intact. No erythema or bleeding noted. Skin: Other: Warm, dry, no rash Progress Note: A&P Assessment and plan (1) Sigmoid diverticulitis: Status: Acute Assessment and Plan: Postop day 1 status post hand assisted laparoscopic sigmoid colectomy with colorectal anastomosis. Patient remains hemodynamically stable with sats of 95% on 2 L nasal cannula. Wounds remained clean and intact. I recommended she get out of bed and ambulate today. She may also lie side the side in bed if desired. We will start her on clear liquids by mouth this morning and advanced as tolerated. Patient was encouraged to deep breathe and cough. Findings of the operation were discussed in detail with the patient once again. Fall Risk Details Current Medications: Current Medications Generic Name Dose Route Start Last Admin Trade Name Norm PRN Reason Stop Dose Admin Acetaminophen 650 mg 07/13/20 19:07 Acetaminophen 325 Mg Tablet PO Q6H PRN Pain, Mild (Pain Scale 1-3) Heparin Sodium (Porcine) 5,000 unit 07/13/20 20:00 07/13/20 20:43 Heparin Sodium,Porcine 5,000 Unit/Ml Vial SUBCUT 5,000 unit Q12H AGUILAR Administration Lactated Ringer's 1,000 mls @ 100 mls/hr 07/13/20 10:45 07/14/20 05:38 Lr IVCONT Not Given .Q10H AGUILAR Morphine Sulfate 3 mg 07/13/20 19:07 07/14/20 03:18 Morphine Sulfate 4 Mg/Ml Cartridge IVPUSH 3 mg Q3H PRN Administration Pain, Severe (Pain Scale 7-10) Ondansetron HCl 4 mg 07/13/20 19:07 Ondansetron Hcl 4 Mg/2 Ml Vial IVPUSH Q8H PRN Nausea and Vomiting Oxycodone HCl 5 mg 07/13/20 19:07 Oxycodone Hcl Immed Release 5 Mg Tablet PO Q6H PRN Pain, Moderate (Pain Scale 4-6 Pharmacy Consult 1 each 07/13/20 19:07 Consult Rx Perform Med Rec MISCELLANE ONCE PRN Consult order Sodium Chloride 3 ml 07/13/20 19:07 07/13/20 20:43 0.9 % Sodium Chloride Flush 3 Ml Syringe IVFLUSH Not Given QSHIFT AGUILAR Zolpidem Tartrate 5 mg 07/13/20 19:07 Zolpidem Tartrate 5 Mg Tablet PO BEDTIME PRN Insomnia Time Spent With Patient Time: Total time spent is greater than 50% in coordination of care (as documented) at patient's floor/unit and/or counseling patient: Time with patient: 15 - 24 minutes
[2020-07-14] MEDS: 0.9 % Sodium Chloride Flush 3 ML SYRINGE IVFLUSH (09:12)
[2020-07-14] MEDS: Heparin Sodium,Porcine 5,000 UNIT/ML VIAL 5000 UNIT SUBCUT ×2 (09:12→21:24)
--- NOTE | 2020-07-14 10:24 | HO.POSTANES ---
Post Anesthesia Evaluation Post Anesthesia Evaluation Vital Signs: Vital Signs Temp Pulse Resp BP Pulse Ox 07/14/20 09:12 16 07/14/20 07:56 98.8 F 62 20 108/52 L 95 07/14/20 00:00 97.9 F 63 18 94/58 L 97 Anesthesia: General Endotracheal-GETA Mental Status: Awake Pain Control: Satisfactory Nausea/Vomiting: None Hydration: Adequate Anesthesia-Related Issues: No Anes. Related Issues
--- NOTE | 2020-07-14 11:28 | P.CONIM_ITS ---
History of Present Illness Data of Consult Service Date: 07/14/20 Requesting physician: Rudi Brady Primary Care Provider: Soren Yan MD HPI Reason for consult: Medical management 70-year-old female with history of COPD/pulmonary fibrosis, dementia, depression: She came to the hospital because of persistent left lower quadrant pain which was getting worse even with antibiotics as per surgical recommendation. Patient said that the abdominal pain was very severe and subsequently patient was went to surgery and today-Postop day 1 status post hand assisted laparoscopic sigmoid colectomy with colorectal anastomosis. Patient still has some abdominal soreness, denies any shortness of breath or cough or phlegm or fever or chills or urinary complaints. Denies any weakness or numbness has some burping . Past medical history: COPD Pulmonary fibrosis Depression Dementia Osteoarthritis Past surgical history: Status post bilateral hip replacement in the past, status post reduction mammoplasty, status post hysterectomy in the past. Review of Systems Review of Systems: Denies any recent fever chills . cardiovascular is adjustment of any PND or edema or sob or chest pain. gastrointestinal denies any dysphagia she has some abd soarness in operation area. no nausea vomiting or diarrhea genitourinary denies any dysuria frequency or hematuria musculoskeletal denies any joint pain or swelling or erythema. neuropsych denies any weakness or numbness. Yes all other systems are reviewed and are negative [facility] Medical History COPD (chronic obstructive pulmonary disease) Cough Dementia Pulmonary fibrosis Sigmoid diverticulitis Pertinent family history: She lives with the , denies any alcohol or tobacco recreation drug use. Family history: reviewed and not pertinent Surgical History H/O: hysterectomy History of bilateral hip replacements History of cholecystectomy Social History Household Members: Spouse Housing: House Do you presently have visiting nurse or other home services: No Alcohol intake: never Smoking Status: Never smoker Second Hand Smoke Exposure: No Use of substances other than those prescribed or required for medical reasons: No Currently Displaying Signs/Symptoms of Drug Intoxication Withdrawal: No Any prior treatment program specific to substance use: No Have you been hit, kicked, punched, or otherwise hurt by someone within the past year? If so, by whom?: No Do you feel safe in your current relationship?: Yes Is there a partner from a previous relationship who is making you feel unsafe now?: No Are you made to feel afraid or neglected: No [employer] Practices: protestant Advance Directives: No Advance Directives Information Provided: No Advance Directives on File: No Do you have thoughts of harming others: None Do you have a plan to hurt others: No Plan Recently lost weight without trying: No service: No Current occupational status: retired Meds Allergies Allergy/AdvReac Type Severity Reaction Status Date / Time latex [LATEX] Allergy Intermediate RASH Verified 05/12/20 10:28 Active Medications: Current Medications Generic Name Dose Route Start Last Admin Trade Name Freq PRN Reason Stop Dose Admin Acetaminophen 650 mg 07/13/20 19:07 Acetaminophen 325 Mg Tablet PO Q6H PRN Pain, Mild (Pain Scale 1-3) Heparin Sodium (Porcine) 5,000 unit 07/13/20 20:00 07/14/20 09:12 Heparin Sodium,Porcine 5,000 Unit/Ml Vial SUBCUT 5,000 unit Q12H AGUILAR Administration Lactated Ringer's 1,000 mls @ 100 mls/hr 07/13/20 10:45 07/14/20 05:38 Lr IVCONT Not Given .Q10H AGUILAR Morphine Sulfate 3 mg 07/13/20 19:07 07/14/20 09:12 Morphine Sulfate 4 Mg/Ml Cartridge IVPUSH 3 mg Q3H PRN Administration Pain, Severe (Pain Scale 7-10) Ondansetron HCl 4 mg 07/13/20 19:07 Ondansetron Hcl 4 Mg/2 Ml Vial IVPUSH Q8H PRN Nausea and Vomiting Oxycodone HCl 5 mg 07/13/20 19:07 Oxycodone Hcl Immed Release 5 Mg Tablet PO Q6H PRN Pain, Moderate (Pain Scale 4-6 Pharmacy Consult 1 each 07/13/20 19:07 Consult Rx Perform Med Rec MISCELLANE ONCE PRN Consult order Sodium Chloride 3 ml 07/13/20 19:07 07/14/20 09:12 0.9 % Sodium Chloride Flush 3 Ml Syringe IVFLUSH 3 ml QSHIFT AGUILAR Administration Zolpidem Tartrate 5 mg 07/13/20 19:07 Zolpidem Tartrate 5 Mg Tablet PO BEDTIME PRN Insomnia Home Medications Medication Instructions Recorded Confirmed Last Taken Type benzonatate 200 mg capsule 200 mg PO TID 05/12/20 07/13/20 Unknown History donepezil 5 mg tablet 5 mg PO DAILY 05/12/20 07/13/20 Unknown History famotidine 40 mg tablet 40 mg PO DAILY 05/12/20 07/13/20 Unknown History montelukast 10 mg tablet 10 mg PO DAILY 05/12/20 07/13/20 Unknown History sertraline 50 mg tablet 50 mg PO DAILY 05/12/20 07/13/20 Unknown History cholecalciferol (vitamin D3) 25 mcg PO DAILY 07/13/20 07/13/20 Unknown History Physical Exam Vital Signs and Narrative: Vital Signs: Last Vital Signs Temp 98.6 F 07/14/20 11:14 Pulse 64 07/14/20 11:14 Resp 20 07/14/20 11:14 BP 93/50 L 07/14/20 11:14 Pulse Ox 95 07/14/20 11:14 Body Mass Index 27.3 Physical exam: Results Labs CBC and Chem 7: 07/15/20 05:47 07/15/20 05:47 Labs: Laboratory Results - last 24 hr 07/13/20 07/13/20 07/14/20 10:50 11:05 04:08 MCV 96.4 MCH 31.0 MCHC 32.2 RDW 12.9 Plt Count 263 MPV 9.6 Immature Gran % (Auto) 0.6 H Neut % (Auto) 86.3 H Lymph % (Auto) 6.8 L [place] % (Auto) 6.2 Eos % (Auto) 0.0 Baso % (Auto) 0.1 Lymph # (Auto) 1.1 L [place] # (Auto) 1.0 Eos # (Auto) 0.0 Baso # (Auto) 0.0 Abs Immat Gran (auto) 0.10 H Absolute Neuts (auto) 14.0 H Absolute Nucleated RBC 0.000 Nucleated RBC % (auto) 0.0 Anion Gap Estim Creat Clear Calc Estimated GFR Random Glucose Calcium COVID-19 ([facility]) Negative COVID-19 Clin Com See Note Blood Type A Positive Antibody Screen NEGATIVE 07/14/20 04:08 MCV MCH MCHC RDW Plt Count MPV Immature Gran % (Auto) Neut % (Auto) Lymph % (Auto) [place] % (Auto) Eos % (Auto) Baso % (Auto) Lymph # (Auto) [place] # (Auto) Eos # (Auto) Baso # (Auto) Abs Immat Gran (auto) Absolute Neuts (auto) Absolute Nucleated RBC Nucleated RBC % (auto) Anion Gap 11 L Estim Creat Clear Calc 56.8 Estimated GFR > 60 Random Glucose 131 H Calcium 8.5 D COVID-19 ([facility]) COVID-19 Clin Com Blood Type Antibody Screen Assessment and Plan (1) Sigmoid diverticulitis: Problem details: POD #2 s/p CONCHITA sigmoid resection Status: Acute (2) Pulmonary fibrosis: Problem details: THIS IS CHRONIC , STABLE , MOST LIKELY THE CAUSE OF COUGH Status: Acute (3) COPD (chronic obstructive pulmonary disease): Status: Acute 1.Sigmoid diverticulitis: Postop day 1 status post hand assisted laparoscopic sigmoid colectomy with colo rectal anastomosis. Pain management Clear liquid diet Initially was on antibiotic at the PCPs office subsequently pain and symptoms are not improved so the had surgical procedure as above. 2. COPD/pulmonary fibrosis Taper oxygen slowly Continue home medications 3. Dementia/depression: continue home meds . Dvt prophyalx
--- NOTE | 2020-07-14 12:03 | MHC.CM.PN ---
IMM 07/14/20 Female 70 dx s/p OR diverticulitis. She is independent all functional mobility. She lives with her . Offered assist with HCP document. Pt declined at this time. DP home w/services vs STR. TBD after P.T. evaluation. Family will provided transportation. CM will follow for change in DC needs.
[2020-07-14] MEDS: Benzonatate 100 MG CAPSULE 200 MG PO ×2 (15:17→21:58)
[2020-07-14] MEDS: oxyCODONE HCl Immed Release 5 MG TABLET PO ×2 (15:17→21:24)
[2020-07-14] MEDS: Salmeterol Xinafoate 50 MCG BLST.W.DEV 1 PUFF INHALE (20:03)
[2020-07-15] VITALS (7 sets, daily range): BP systolic 149–186; BP diastolic 75–96; PULSE 75–99; RESP 16–19; TEMP 36.4–37.6; O2SAT 92–96
[2020-07-15] MEDS: Lactated Ringers 1,000 ML 100 ML IVCONT (02:27)
[2020-07-15 05:59] LABS: MANUAL DIFF FLAG NO
[2020-07-15 06:08] LABS: Basophils Percent Auto 0.2 % (0-2); Eosinophils Percent Auto 0.3 % (0-4); Hematocrit 29.2 % (37-47); Hemoglobin 9.3 g/dl (12.0-16.0); Imm Gran Abs Auto 0.08 X10*3/uL (0.00-0.03); Imm Gran Pct Auto 0.6 % (0.0-0.4); Lymphocytes Absolute Auto 1.9 X10*3/uL (1.2-4.9); Lymphocytes Percent Auto 15.2 % (20-40); Mean Corpuscular HGB Conc 31.8 g/dl (31.0-35.0); Mean Corpuscular Hemoglobin 30.8 pg (27.0-33.0); Mean Corpuscular Volume 96.7 fL (80-98); Mean Platelet Volume 9.3 fL (9.4-12.3); Monocytes Absolute Auto 0.9 X10*3/uL (0.1-1.2); Monocytes Percent Auto 6.8 % (2-11); Neutrophils Absolute Auto 9.6 X10*3/uL (2.0-8.3); Neutrophils Percent Auto 76.9 % (45-73); Platelet Count 262 X10*3/uL (160-400); Red Blood Count 3.02 X10*6/uL (4.20-5.50); White Blood Count 12.5 X10*3/uL (4.8-10.8)
[2020-07-15 06:44] LABS: Anion Gap 11 (12-20); Blood Urea Nitrogen 8 mg/dL (9-16); Calcium 7.9 mg/dL (8.4-10.2); Carbon Dioxide 26 mmol/L (22-29); Chloride 108 mmol/L (96-108); Creatinine Clr Calc Pharmacy 64.9; Estimated Glomerular Filt Rate > 60; Glucose Fasting 88 mg/dL (60-99); Potassium 3.3 mmol/L (3.3-5.1); Sodium 142 mmol/L (135-145)
[2020-07-15] MEDS: Salmeterol Xinafoate 50 MCG BLST.W.DEV 1 PUFF INHALE (07:47)
[2020-07-15] MEDS: oxyCODONE HCl Immed Release 5 MG TABLET PO ×2 (08:16→14:04)
[2020-07-15] MEDS: Famotidine 20 MG TABLET 40 MG PO (08:17)
[2020-07-15] MEDS: Montelukast Sodium 10 MG TABLET PO (08:17)
[2020-07-15] MEDS: Cholecalciferol (Vitamin D3) 25 MCG TABLET PO (08:17)
[2020-07-15] MEDS: Sertraline HCL 50 MG TABLET PO (08:17)
[2020-07-15] MEDS: Donepezil HCl 5 MG TABLET PO (08:17)
[2020-07-15] MEDS: Benzonatate 100 MG CAPSULE 200 MG PO ×3 (08:17→20:11)
[2020-07-15] MEDS: Heparin Sodium,Porcine 5,000 UNIT/ML VIAL 5000 UNIT SUBCUT ×2 (08:19→20:06)
--- NOTE | 2020-07-15 09:11 | P.PNGS_ITS ---
Subjective Subjective Date of Service: 07/15/20 Interval history: Feels ok today, sore at incision. Comfortable with meds. Tolerated clear liquids yesterday without nausea or vomiting. Had liquid BM. OOB yesterday and ambulated. Cannon removed this am. Physical Exam Vital Signs: Vital Signs: Last Vital Signs Temp 99.6 F 07/15/20 07:51 Pulse 96 07/15/20 07:51 Resp 16 07/15/20 07:51 BP 149/75 H 07/15/20 07:51 Pulse Ox 92 07/15/20 07:51 Body Mass Index 27.3 Const: General: comfortable, no acute distress and alert Orientation/consciousness: patient oriented x3 Eyes: Sclerae: sclerae normal Resp: Effort & Inspection: normal respiratory effort GI: Inspection: No distended and Yes incision (no erythema, clean) Palpation (GI): Soft to palpation, Tenderness to palpation present (GI) (mild, incisional), no guarding, not rigid and No Rebound tenderness present Skin: General skin exam: no rashes or lesions noted Neuro: General: patient oriented x3 Extrem: General: Yes no clubbing, cyanosis or edema Progress Note: A&P Assessment and plan (1) Sigmoid diverticulitis: Problem details: POD #2 s/p CONCHITA sigmoid resection Status: Acute Assessment and Plan: Continues to do well post op. Comfortable, tolerating clear liquids. Had BM. VSS. Abd exam benign, incision clean, appopriate post op tenderness. D/c cannon. Will advance to low residue diet. Encouraged OOB, ambulation and IS use. WBC downtrending, likely reactive. (2) Pulmonary fibrosis: Problem details: THIS IS CHRONIC , STABLE , MOST LIKELY THE CAUSE OF COUGH Status: Acute Fall Risk Details Current Medications: Current Medications Generic Name Dose Route Start Last Admin Trade Name Freq PRN Reason Stop Dose Admin Acetaminophen 650 mg 07/13/20 19:07 Acetaminophen 325 Mg Tablet PO Q6H PRN Pain, Mild (Pain Scale 1-3) Albuterol Sulfate 2 puff 07/14/20 12:00 Albuterol Sulfate 90 Mcg 8 Gm Inhaler INHALE Q6H PRN shortness of breath or wheezing Benzonatate 200 mg 07/14/20 15:00 07/15/20 08:17 Benzonatate 100 Mg Capsule PO 200 mg TID AGUILAR Administration Donepezil HCl 5 mg 07/15/20 09:00 07/15/20 08:17 Donepezil Hcl 5 Mg Tablet PO 5 mg DAILY AGUILAR Administration Famotidine 40 mg 07/15/20 09:00 07/15/20 08:17 Famotidine 20 Mg Tablet PO 40 mg DAILY AGUILAR Administration Heparin Sodium (Porcine) 5,000 unit 07/13/20 20:00 07/15/20 08:19 Heparin Sodium,Porcine 5,000 Unit/Ml Vial SUBCUT 5,000 unit Q12H AGUILAR Administration Montelukast Sodium 10 mg 07/15/20 09:00 07/15/20 08:17 Montelukast Sodium 10 Mg Tablet PO 10 mg DAILY AGUILAR Administration Morphine Sulfate 3 mg 07/13/20 19:07 07/14/20 18:13 Morphine Sulfate 4 Mg/Ml Cartridge IVPUSH 3 mg Q3H PRN Administration Pain, Severe (Pain Scale 7-10) Ondansetron HCl 4 mg 07/13/20 19:07 Ondansetron Hcl 4 Mg/2 Ml Vial IVPUSH Q8H PRN Nausea and Vomiting Oxycodone HCl 5 mg 07/13/20 19:07 07/15/20 08:16 Oxycodone Hcl Immed Release 5 Mg Tablet PO 5 mg Q6H PRN Administration Pain, Moderate (Pain Scale 4-6 Pharmacy Consult 1 each 07/13/20 19:07 Consult Rx Perform Med Rec MISCELLANE ONCE PRN Consult order Salmeterol Xinafoate 1 puff 07/14/20 20:00 07/15/20 07:47 Salmeterol Xinafoate 50 Mcg Blst.W.Dev INHALE 1 puff RBID [facility] Administration Sertraline HCl 50 mg 07/15/20 09:00 07/15/20 08:17 Sertraline Hcl 50 Mg Tablet PO 50 mg DAILY [facility] Administration Sodium Chloride 3 ml 07/13/20 19:07 07/15/20 08:19 0.9 % Sodium Chloride Flush 3 Ml Syringe IVFLUSH Not Given QSHIFT [facility] Vitamin D 25 mcg 07/15/20 09:00 07/15/20 08:17 Cholecalciferol (Vitamin D3) 25 Mcg Tablet PO 25 mcg DAILY AGUILAR Administration Zolpidem Tartrate 5 mg 07/13/20 19:07 Zolpidem Tartrate 5 Mg Tablet PO BEDTIME PRN Insomnia Time Spent With Patient Time: Total time spent is greater than 50% in coordination of care (as documented) at patient's floor/unit and/or counseling patient: Time with patient: 15 - 24 minutes
--- NOTE | 2020-07-15 15:01 | HO.PM.IMPN ---
Subjective Subjective Date of Service: 07/16/20 Interval History: Sigmoid diverticulitis Review of Systems Patient is status post due to surgery 2 days back, says still has some abdominal soreness otherwise denies any nausea vomiting or fever or chills or weakness numbness or any urinary complaints. Physical Exam Vital Signs: Vital Signs: Last Vital Signs Temp 99.6 F 07/15/20 07:51 Pulse 96 07/15/20 07:51 Resp 16 07/15/20 07:51 BP 149/75 H 07/15/20 07:51 Pulse Ox 92 07/15/20 10:29 Body Mass Index 27.3 Physical exam: Constitutional: Noted acute distress Cvs: rrr, [id number] , no murmur res: clear to auscultation ,no rhonchii or wheezing abd: no rebound or guarding ,nt, bs present. ext pulses present , no cyanosis neuro: axo3 , nonfocal. Objective Data Current Medications Generic Name Dose Route Start Last Admin Trade Name Freq PRN Reason Stop Dose Admin Acetaminophen 650 mg 07/13/20 19:07 Acetaminophen 325 Mg Tablet PO Q6H PRN Pain, Mild (Pain Scale 1-3) Albuterol Sulfate 2 puff 07/14/20 12:00 Albuterol Sulfate 90 Mcg 8 Gm Inhaler INHALE Q6H PRN shortness of breath or wheezing Benzonatate 200 mg 07/14/20 15:00 07/15/20 14:04 Benzonatate 100 Mg Capsule PO 200 mg TID AGUILAR Administration Donepezil HCl 5 mg 07/15/20 09:00 07/15/20 08:17 Donepezil Hcl 5 Mg Tablet PO 5 mg DAILY AGUILAR Administration Famotidine 40 mg 07/15/20 09:00 07/15/20 08:17 Famotidine 20 Mg Tablet PO 40 mg DAILY AGUILAR Administration Heparin Sodium (Porcine) 5,000 unit 07/13/20 20:00 07/15/20 08:19 Heparin Sodium,Porcine 5,000 Unit/Ml Vial SUBCUT 5,000 unit Q12H AGUILAR Administration Montelukast Sodium 10 mg 07/15/20 09:00 07/15/20 08:17 Montelukast Sodium 10 Mg Tablet PO 10 mg DAILY AGUILAR Administration Morphine Sulfate 3 mg 07/13/20 19:07 07/14/20 18:13 Morphine Sulfate 4 Mg/Ml Cartridge IVPUSH 3 mg Q3H PRN Administration Pain, Severe (Pain Scale 7-10) Ondansetron HCl 4 mg 07/13/20 19:07 Ondansetron Hcl 4 Mg/2 Ml Vial IVPUSH Q8H PRN Nausea and Vomiting Oxycodone HCl 5 mg 07/13/20 19:07 07/15/20 14:04 Oxycodone Hcl Immed Release 5 Mg Tablet PO 5 mg Q6H PRN Administration Pain, Moderate (Pain Scale 4-6 Pharmacy Consult 1 each 07/13/20 19:07 Consult Rx Perform Med Rec MISCELLANE ONCE PRN Consult order Salmeterol Xinafoate 1 puff 07/14/20 20:00 07/15/20 07:47 Salmeterol Xinafoate 50 Mcg Blst.W.Dev INHALE 1 puff RBID AGUILAR Administration Sertraline HCl 50 mg 07/15/20 09:00 07/15/20 08:17 Sertraline Hcl 50 Mg Tablet PO 50 mg DAILY AGUILAR Administration Sodium Chloride 3 ml 07/13/20 19:07 07/15/20 08:19 0.9 % Sodium Chloride Flush 3 Ml Syringe IVFLUSH Not Given QSHIFT AGUILAR Vitamin D 25 mcg 07/15/20 09:00 07/15/20 08:17 Cholecalciferol (Vitamin D3) 25 Mcg Tablet PO 25 mcg DAILY AGUILAR Administration Zolpidem Tartrate 5 mg 07/13/20 19:07 Zolpidem Tartrate 5 Mg Tablet PO BEDTIME PRN Insomnia Labs CBC & Chem 7: 07/15/20 05:47 07/15/20 05:47 Assessment and Plan (1) Sigmoid diverticulitis: Status: Acute (2) Pulmonary fibrosis: Status: Acute Assessment and Plan: 1.Sigmoid diverticulitis: Postop day 2 status post hand assisted laparoscopic sigmoid colectomy with colorectal anastomosis. Pain management diet advanced. Initially was on antibiotic at the PCPs office subsequently pain and symptoms are not improved so the had surgical procedure as above. 2. COPD/pulmonary fibrosis incentive sprio, chest physio Continue home medications 3. Dementia/depression: continue home meds . Dvt prophyalx
[2020-07-15] MEDS: 0.9 % Sodium Chloride Flush 3 ML SYRINGE IVFLUSH ×2 (15:23→20:15)
[2020-07-15] MEDS: Acetaminophen 325 MG TABLET 650 MG PO (20:13)
[2020-07-16 08:00] VITALS: BP 172/95; PULSE 96; RESP 18; TEMP 37.6; O2SAT 92
--- NOTE | 2020-07-16 08:13 | P.DS_ITS ---
DS: Providers Provider Date of Service: 07/16/20 Date of admission: 07/13/20 10:43 Primary care physician: Soren Yan MD Consults: 07/13/20 19:07 Consult to Hospitalist Routine Consulting Provider: Hospitalist Reason For Exam: COPD, Pulmonary fibrosis, s/p lap sig colectomy DS: Diagnosis Discharge Diagnosis (1) Sigmoid diverticulitis: Status: Acute (2) Pulmonary fibrosis: Status: Acute DS: Medications Discharge Medications Home Medications: Home Medications Medication Instructions Recorded Confirmed benzonatate 200 mg capsule 200 mg PO TID 05/12/20 07/13/20 donepezil 5 mg tablet 5 mg PO DAILY 05/12/20 07/13/20 famotidine 40 mg tablet 40 mg PO DAILY 05/12/20 07/13/20 montelukast 10 mg tablet 10 mg PO DAILY 05/12/20 07/13/20 sertraline 50 mg tablet 50 mg PO DAILY 05/12/20 07/13/20 cholecalciferol (vitamin D3) 25 mcg PO DAILY 07/13/20 07/13/20 Previous Rx's Medication Instructions Recorded salmeterol 50 mcg/dose blister 1 inh INHALATION Q12H 30 Days #60 05/12/20 powder for inhalation ea albuterol sulfate 90 mcg/actuation 2 puff INHALATION Q6H PRN 30 Days 07/12/20 aerosol inhaler #1 ea oxycodone 5 mg PO Q6H PRN #10 tab 07/16/20 DS: Summary Hospital Course Hospital Course: BRIEF HPI: Vita Huynh is a 70-year-old female patient presenting with complaints of abdominal pain located in the lower abdomen mainly in the left lower quadrant. She has a known history of diverticulitis since new year's and has been on intermittent courses of antibiotics by mouth. She feels the pain improved slightly while in the antibiotics but then quickly returns which she h as completed the antibiotic. She was recently restarted on treatment and continues to report persistent pain in the left lower quadrant. A CT of the abdomen and pelvis previously revealed an area of sigmoid diverticulitis without abscess or perforation. Given the recurrence and persistence of pain, it was recommended to proceed with a hand assisted laparoscopic sigmoid resection. She now presents for the procedure. HOSPITAL COURSE: On 07/13/20, a hand assisted laparoscopic sigmoid resection was performed by Dr. Rudi Brady without complication. The patient tolerated the procedure well and was admitted to [facility] for observation. A hospitalist consult was obtained for management of her medical comorbidities. She had an uncomplicated post operative and recovery course. On POD #1, she was doing well. Her vitals remained stable. She had some incisional pain but was comfortable. She was started on a clear liquid diet and encouraged OOB. On POD#2, her cannon was removed and she was ambulated. She was tolerating a clear liquid diet without N/V. She began moving her bowels. She was started on a low residue diet. Her WBC improved. On POD #3, the patient felt well. SHe had minimal abdominal pain and was tolerating a solid diet. She continued to have good GI fxn. She was clinically appearing well with a benign abdominal exam and clean incision. She felt ready for discharge. She was discharged to home in stable condition on 07/16/21. She is to follow up with Dr. Brady in office in 1 week. Status at Discharge Overall status at discharge: patient is progressing back to baseline Time Spent with Patient Time attestation: Total time spent providing and/or coordinating discharge services: Discharge coordination time: Greater than 30 minutes Physical Exam Vital Signs: Vital Signs: Last Vital Signs Temp 99.6 F 19/ 08:00 Pulse 96 07/16/ 08:00 Resp 18 07/16/ 08:00 BP 172/95 H 07/16/ 08:00 Pulse Ox 92 07/16/ 08:00 Body Mass Index 27.3 Const: General: comfortable, no acute distress and alert Orientation/consciousness: patient oriented x3 Eyes: Sclerae: sclerae normal Resp: Effort & Inspection: normal respiratory effort Cardio: Rate: regular rate GI: Inspection: No distended and Yes incision (clean) Palpation (GI): Soft to palpation, not firm, Tenderness to palpation present (GI) (mild, incisional), no guarding and not rigid Percussion: Yes normal to percussion Skin: General skin exam: no rashes or lesions noted Neuro: General: patient oriented x3 Extrem: General: Yes no clubbing, cyanosis or edema DS: Data Data Completed and Pending Completed studies during hospitalization [Text1]: 07/13/20 14:17 Surgical [PTH] Routine A. Colon, sigmoid, segmental resection: Diverticular-associated segmental colitis. B. Colon, EEA rings: Colonic tissue within normal limits. Discharge Plan Discharge Patient Disposition: Home, Self-Care Referrals: Soren Yan MD [Primary Care Provider] - Rudi Brady MD [Physician] - Discharge Medications: New oxycodone 5 mg tablet 5 mg PO Q6H PRN (Reason: pain) Qty: 10 RF: 0 Continued albuterol sulfate [Ventolin HFA] 90 mcg/actuation HFA aerosol inhaler 2 puff inhalation Q6H PRN (Reason: shortness of breath or wheezing) 30 Days Qty: 1 RF: 6 cholecalciferol (vitamin D3) 25 mcg (1,000 unit) Capsule 25 mcg PO DAILY RF: 0 famotidine 40 mg tablet 40 mg PO DAILY RF: 0 sertraline 50 mg tablet 50 mg PO DAILY RF: 0 montelukast 10 mg tablet 10 mg PO DAILY RF: 0 donepezil 5 mg tablet 5 mg PO DAILY RF: 0 benzonatate 200 mg capsule 200 mg PO TID RF: 0 Serevent Diskus 50 mcg/dose blister with device 1 inh inhalation Q12H 30 Days Qty: 60 RF: 5 Discharge Orders: Discharge Order (Routine); Ordered 07/16/20 Ordered By: Rudi Brady Diet: other Activity on Discharge: No heavy lifting Stand Alone Forms: Patient Portal Discharge page Activity Restrictions/Additional Instructions: If the incision area is tender, you may apply an ice pack for short intervals (No more than 20 minutes on, followed by at least 20 minutes off). Do not apply heat. Do not use creams, lotions, or topical antibiotics unless instructed to do so by your surgeon. These can cause infection or allergic reaction. Ok to shower. You have anderson closing your incision and these will be removed approximately 10-14 days after surgery. Call Your Doctor If: -Your temperature exceeds 101.5? F -You experience excessive pain or swelling -You have an unexpected reaction to medication -You have excessive bleeding -You experience continued vomiting/nausea -Your incision begins to separate -Your incision shows signs of infection such as increased redness, swelling, excessive pain, drainage (light blood or clear fluid is normal) or heat Care Plan Goals: S/P Sigmoid colectomy Health Concerns: Sigmoid diverticulitis Plan of Treatment: Low fiber diet; no heavy lifting for 1 month Patient Instructions: Low Fiber Diet (DC)
[2020-07-16] MEDS: 0.9 % Sodium Chloride Flush 3 ML SYRINGE IVFLUSH (08:38)
[2020-07-16] MEDS: Famotidine 20 MG TABLET 40 MG PO (08:38)
[2020-07-16] MEDS: Sertraline HCL 50 MG TABLET PO (08:38)
[2020-07-16] MEDS: Cholecalciferol (Vitamin D3) 25 MCG TABLET PO (08:38)
[2020-07-16] MEDS: Heparin Sodium,Porcine 5,000 UNIT/ML VIAL 5000 UNIT SUBCUT (08:38)
[2020-07-16] MEDS: Benzonatate 100 MG CAPSULE 200 MG PO (08:39)
[2020-07-16] MEDS: Montelukast Sodium 10 MG TABLET PO (08:39)
[2020-07-16] MEDS: Salmeterol Xinafoate 50 MCG BLST.W.DEV 1 PUFF INHALE (08:39)
[2020-07-16] MEDS: Donepezil HCl 5 MG TABLET PO (08:39)
[2020-07-16] MEDS: Acetaminophen 325 MG TABLET 650 MG PO (08:43)
--- NOTE | 2020-07-16 10:20 | MHC.CM.PN ---
Addendum entered by Destiny Barroso RN 07/16/20 11:56: CM SPOKE WITH PT'S FAMILY WHO DENIED NEED FOR HOME SERVICES, GRANDDAUGHTER IS A NURSE AND WILL BE CHECKING IN ON PT. Original Note: PT DISCHARGING HOME SELF-CARE, FAMILY TO TRANSPORT WITH FOLLOW-UP IN SURGEONS OFFICE.
--- NOTE | 2020-07-16 11:36 | P.PNIM_ITS ---
Subjective Subjective Date of Service: 07/16/20 Interval History: Diverticulitis Review of Systems Patient denies any abdominal pain or fever chills, she says she is passing bowels and gases. Physical Exam Vital Signs: Vital Signs: Last Vital Signs Temp 99.6 F 07/16/20 08:00 Pulse 96 07/16/20 08:00 Resp 18 07/16/20 08:00 BP 172/95 H 07/16/20 08:00 Pulse Ox 92 07/16/20 08:00 Body Mass Index 27.3 Physical exam : Constitutional: Not in acute distress Neck supple HEENT: Eyes are anicteric , no discharge. Cvs: rrr, [id number] , no murmur res: clear to auscultation ,no rhonchii or wheezing abd: no rebound or guarding ,nt, bs present. ext pulses present , no cyanosis neuro: axo3 , nonfocal. Objective Data Labs CBC & Chem 7: 07/15/20 05:47 07/15/20 05:47 Assessment and Plan (1) Sigmoid diverticulitis: Status: Acute (2) Pulmonary fibrosis: Status: Acute Assessment and Plan: 1.Sigmoid diverticulitis: Postop day 2 status post hand assisted laparoscopic sigmoid colectomy with colorectal anastomosis. Pain management diet advanced. Initially was on antibiotic at the PCPs office subsequently pain and symptoms are not improved so the had surgical procedure as above. 2. COPD/pulmonary fibrosis incentive sprio, chest physio Continue home medications 3. Dementia/depression: continue home meds . 4. flactuating blood pressure : probable pain component .flactuating from 100- 150 range no hx of htn advised low sodium diet,moniter outpatiently with pcp. Above management discussed with the primary team in detail.
--- NOTE | 2020-07-16 16:21 | PM.PNGS ---
Subjective Subjective Date of Service: 07/16/20 Interval history: Patient feels much improved today with no abdominal pain, tolerated a regular diet, moving her bowels, able to get out of bed and ambulate independently. Physical Exam Vital Signs: Vital Signs: Last Vital Signs Temp 99.6 F 07/16/20 08:00 Pulse 96 07/16/20 08:00 Resp 18 07/16/20 08:00 BP 172/95 H 07/16/20 08:00 Pulse Ox 92 07/16/20 08:00 Body Mass Index 27.3 Const: General: cooperative, healthy appearing and comfortable Resp: Other: Breathing comfortably on room air GI: Other: Soft, nondistended, nontender, incisions is clean and intact with intact sutures, no erythema or discharge Skin: Other: Warm, dry, no rash Extrem: General: Yes no clubbing, cyanosis or edema Progress Note: A&P Assessment and plan (1) Sigmoid diverticulitis: Status: Acute Assessment and Plan: 70-year-old female status post hand assisted laparoscopic sigmoid resection with colorectal anastomosis. Patient is now postoperative day 3 and reports feeling much improved. She is tolerating a regular diet without additional abdominal pain, nausea, or vomiting. Her bowels are moving as well. Examination reveals her incisions to be clean and intact. She feels ready to go home today. I recommended the patient avoid lifting greater than 10 lb but should try to walk daily. She should remain on a low-fiber diet. I have asked her to return the office next week for wound examination is staple removal. She should call sooner for any complaints of fever, chills, increased abdominal pain, nausea, vomiting or other concerns. Patient expressed understanding and agrees with the plan. I also discussed the plan with her granddaughter who will be staying with her. Time Spent With Patient Time: Total time spent is greater than 50% in coordination of care (as documented) at patient's floor/unit and/or counseling patient: Time with patient: 15 - 24 minutes
== END 2020-07-16 10:15 | disposition home or self-care (01) | DRG 331 ==
LOC: HO.SSSA 10:54 → HO.IMC 18:22 → HO.S3 07-14 17:55
PROVIDERS: Admitting Provider Surgery; PCP Internal Medicine; Visit Provider Surgery
PROC: 0DTE0ZZ Resection of Large Intestine, Open Approach (ICD-10-PCS; principal; 2020-07-13 12:30)
DX: K57.32 Diverticulitis of large intestine without perforation or abscess without bleeding (principal); F03.90 Unspecified dementia, unspecified severity, without behavioral disturbance, psychotic disturbance, mood disturbance, and anxiety; J44.9 Chronic obstructive pulmonary disease, unspecified; J84.10 Pulmonary fibrosis, unspecified; F32.9 Major depressive disorder, single episode, unspecified; Z20.822 Contact with and (suspected) exposure to COVID-19; Z96.643 Presence of artificial hip joint, bilateral; Z79.899 Other long term (current) drug therapy
CPT/HCPCS: 36415; 80048; 85025; 86850; 86900; 86901; 87635; 88305; 88307; 94640; 99024; C1758; J0131; J1100; J1170; J1885; J2250; J2270; J2370; J2405; J3010

== ENCOUNTER → 2020-07-23 10:43 | Outpatient (BNVA) | payer MEDICARE, SELFPAY | PROVIDERS: PCP Internal Medicine; Visit Provider Surgery | DX: K57.32 Diverticulitis of large intestine without perforation or abscess without bleeding (principal) | CPT/HCPCS: 99212 ==

== ENCOUNTER → 2020-08-10 11:26 | Outpatient (BNVA) | payer MEDICARE, SELFPAY | PROVIDERS: PCP Internal Medicine; Visit Provider Surgery | DX: K57.32 Diverticulitis of large intestine without perforation or abscess without bleeding (principal) | CPT/HCPCS: 99212 ==

== ENCOUNTER → 2020-09-08 11:30 | Outpatient (BNVA) | payer MEDICARE, SELFPAY | PROVIDERS: PCP Internal Medicine; Visit Provider Internal Medicine | DX: J44.9 Chronic obstructive pulmonary disease, unspecified (principal); J84.10 Pulmonary fibrosis, unspecified; R05 Cough; Z79.899 Other long term (current) drug therapy | CPT/HCPCS: 99212 ==

== ENCOUNTER → 2020-09-29 14:39 | Outpatient (BNVA) | payer MEDICARE, SELFPAY | PROVIDERS: PCP Internal Medicine; Visit Provider Internal Medicine | DX: J84.10 Pulmonary fibrosis, unspecified (principal); J44.9 Chronic obstructive pulmonary disease, unspecified; R05 Cough | CPT/HCPCS: 99212 ==

== ENCOUNTER 2020-10-12 11:18 | Outpatient (REF) | payer MEDICARE, SELFPAY ==
[2020-10-12 13:15] LABS: MANUAL DIFF FLAG NO
[2020-10-12 13:20] LABS: Basophils Absolute Auto 0.1 X10*3/uL (0.0-0.2); Basophils Percent Auto 0.4 % (0-2); Eosinophils Absolute Auto 0.2 X10*3/uL (0.0-0.4); Eosinophils Percent Auto 1.3 % (0-4); Hematocrit 41.4 % (37-47); Hemoglobin 13.1 g/dl (12.0-16.0); Imm Gran Abs Auto 0.07 X10*3/uL (0.00-0.03); Imm Gran Pct Auto 0.6 % (0.0-0.4); Lymphocytes Absolute Auto 2.3 X10*3/uL (1.2-4.9); Lymphocytes Percent Auto 18.3 % (20-40); Mean Corpuscular HGB Conc 31.6 g/dl (31.0-35.0); Mean Corpuscular Hemoglobin 30.7 pg (27.0-33.0); Mean Platelet Volume 9.6 fL (9.4-12.3); Monocytes Absolute Auto 0.8 X10*3/uL (0.1-1.2); Monocytes Percent Auto 6.5 % (2-11); Neutrophils Absolute Auto 9.2 X10*3/uL (2.0-8.3); Neutrophils Percent Auto 72.9 % (45-73); Platelet Count 236 X10*3/uL (160-400); Red Blood Count 4.27 X10*6/uL (4.20-5.50); Red Cell Distribution Width 14.5 % (11.0-16.0); White Blood Count 12.6 X10*3/uL (4.8-10.8)
[2020-10-12 14:00] LABS: Alanine Aminotransferase 14 U/L (0-31); Albumin Level 3.7 g/dL (3.5-5.0); Alkaline Phosphatase 139 U/L (39-117); Anion Gap 12 (12-20); Aspartate Amino Transferase 17 U/L (5-31); Bilirubin Total 0.5 mg/dL (0.0-1.0); Blood Urea Nitrogen 21 mg/dL (9-16); Calcium 9.4 mg/dL (8.4-10.2); Carbon Dioxide 29 mmol/L (22-29); Chloride 108 mmol/L (96-108); Estimated Glomerular Filt Rate 54; Glucose Random 109 mg/dL (60-115); Potassium 3.8 mmol/L (3.3-5.1); Sodium 145 mmol/L (135-145); Total Protein 7.6 g/dL (6.5-8.0)
[2020-10-12 14:22] LABS: Vitamin D 25-OH Total 37.5 ng/mL (>30)
== END 2020-10-12 11:19 | disposition home or self-care (01) ==
LOC: HO.10HDL 11:18
PROVIDERS: Visit Provider Internal Medicine
DX: R05 Cough (principal); E55.9 Vitamin D deficiency, unspecified; K57.92 Diverticulitis of intestine, part unspecified, without perforation or abscess without bleeding; R35.1 Nocturia
CPT/HCPCS: 36415; 80053; 82306; 85025

== ENCOUNTER → 2020-11-03 13:56 | Outpatient (BNVA) | payer MEDICARE, SELFPAY | PROVIDERS: PCP Internal Medicine; Visit Provider Internal Medicine | DX: J84.10 Pulmonary fibrosis, unspecified (principal); J44.9 Chronic obstructive pulmonary disease, unspecified; R05 Cough | CPT/HCPCS: 99212 ==

== ENCOUNTER → 2020-12-22 10:15 | Outpatient (BNVA) | payer MEDICARE, SELFPAY | PROVIDERS: PCP Internal Medicine; Visit Provider Internal Medicine | DX: J44.9 Chronic obstructive pulmonary disease, unspecified (principal); J84.10 Pulmonary fibrosis, unspecified; Z79.899 Other long term (current) drug therapy | CPT/HCPCS: 99212 ==

== ENCOUNTER 2021-01-13 11:01 | Outpatient (REF) | payer MEDICARE, SELFPAY ==
[2021-01-13 13:27] LABS: MANUAL DIFF FLAG NO
[2021-01-13 13:34] LABS: Basophils Absolute Auto 0.1 X10*3/uL (0.0-0.2); Basophils Percent Auto 0.6 % (0-2); Eosinophils Absolute Auto 0.2 X10*3/uL (0.0-0.4); Eosinophils Percent Auto 2.4 % (0-4); Hematocrit 41.2 % (37-47); Hemoglobin 13.3 g/dl (12.0-16.0); Imm Gran Abs Auto 0.07 X10*3/uL (0.00-0.03); Imm Gran Pct Auto 0.7 % (0.0-0.4); Lymphocytes Absolute Auto 2.1 X10*3/uL (1.2-4.9); Lymphocytes Percent Auto 20.8 % (20-40); Mean Corpuscular HGB Conc 32.3 g/dl (31.0-35.0); Mean Corpuscular Hemoglobin 31.8 pg (27.0-33.0); Mean Corpuscular Volume 98.6 fL (80-98); Mean Platelet Volume 10.2 fL (9.4-12.3); Monocytes Absolute Auto 0.8 X10*3/uL (0.1-1.2); Monocytes Percent Auto 7.6 % (2-11); Neutrophils Absolute Auto 6.8 X10*3/uL (2.0-8.3); Neutrophils Percent Auto 67.9 % (45-73); Platelet Count 211 X10*3/uL (160-400); Red Blood Count 4.18 X10*6/uL (4.20-5.50); Red Cell Distribution Width 13.5 % (11.0-16.0)
[2021-01-13 13:50] LABS: Glucose Urine UA NEG (NEG); Leukocyte Esterase Urine NEG (NEG); Nitrite Urine NEG (NEG); PH 5.5 (5.0-8.0); Specific Gravity - Urine >= 1.030 (1.005-1.025); Urine Blood NEG (NEG); Urine Ketones 5 MG/DL (NEG); Urine Protein NEG (NEG-TRACE)
[2021-01-13 13:54] LABS: Appearance Urine CLOUDY; Color Urine YELLOW
[2021-01-13 14:20] LABS: Amorphous Sediment Urine 3+ /LPF; Calcium Oxalate Crystals Urine 2+ /LPF; RBC Urine 0 /HPF (0); Squamous Epithelial Cell Urine TRACE /LPF; WBC Urine 0 /HPF (0-4)
[2021-01-13 14:48] LABS: Anion Gap 12 (12-20); Blood Urea Nitrogen 18 mg/dL (9-16); C Reactive Protein 0.53 mg/dL (< or = 0.50); Calcium 9.9 mg/dL (8.4-10.2); Carbon Dioxide 27 mmol/L (22-29); Chloride 111 mmol/L (96-108); Estimated Glomerular Filt Rate 51; Glucose Random 88 mg/dL (60-115); Potassium 4.1 mmol/L (3.3-5.1); Sodium 146 mmol/L (135-145)
== END 2021-01-13 11:02 | disposition home or self-care (01) ==
LOC: HO.10HDL 11:01
PROVIDERS: Visit Provider Internal Medicine
DX: M54.9 Dorsalgia, unspecified (principal); J45.909 Unspecified asthma, uncomplicated
CPT/HCPCS: 36415; 80048; 81001; 85025; 86140; 87086

== ENCOUNTER → 2021-02-01 12:49 | Outpatient (BNVA) | payer MEDICARE, SELFPAY | PROVIDERS: PCP Internal Medicine; Referring Provider Internal Medicine; Visit Provider Surgery | DX: R10.9 Unspecified abdominal pain (principal) | CPT/HCPCS: 99212 ==

== ENCOUNTER 2021-02-07 07:32 | Outpatient (REF) | payer MEDICARE, SELFPAY | END 2021-02-07 07:33 | disposition home or self-care (01) | LOC: HO.CT 07:32 | PROVIDERS: PCP Internal Medicine; Visit Provider Surgery | DX: Z13.89 Encounter for screening for other disorder (principal) ==

== ENCOUNTER 2021-02-08 11:46 | Outpatient (REF) | payer MEDICARE, SELFPAY ==
--- NOTE | ~2021-02-08 | CT_ITS ---
EXAMINATION: CT ABDOMEN AND PELVIS WITHOUT CONTRAST CLINICAL INFORMATION: Incisional hernia. COMPARISON: CT abdomen and pelvis 06/23/2020. TECHNIQUE: Multidetector volumetric imaging was performed from the superior aspect of the liver through the pubic symphysis. Sagittal and coronal reformatted images were obtained on the technologist's workstation. This CT examination was performed using dose optimization techniques as appropriate, variously including the following: *Automated exposure control *Adjustment of mA and/or kV according to patient size (this includes techniques or standardized protocols for targeted exams where dose is matched to indication/reason for exam; i.e. extremities or head) *Use of iterative reconstruction technique DLP: 485 mGy-cm. FINDINGS: LUNG BASES: The visualized lung bases are unremarkable. LIVER, GALLBLADDER, AND BILIARY TREE: The liver is normal in size, shape, and attenuation. No focal hepatic lesion or biliary ductal dilatation is present. The gallbladder has been surgically removed. PANCREAS: Unremarkable. SPLEEN: Unremarkable. ADRENAL GLANDS: Unremarkable. KIDNEYS AND URETERS: The kidneys are normal in size, shape, and attenuation. No hydronephrosis, hydroureter, or calculi seen. No perinephric stranding. There is a 3.4 cm hypodense cyst in the upper pole right kidney. Likely small peripelvic left renal cyst suspected. There are stable. No additional lesions seen. BLADDER: Unremarkable. GASTROINTESTINAL TRACT: There is scattered oral contrast seen in the colon and the small bowel loops without distention. Appendix is not seen. The stomach is nondistended with a small hiatal hernia and mild mural thickening of the GE junction and medial fundus. ABDOMINAL WALL: There is soft tissue thickening seen along the infraumbilical anterior abdominal wall, likely granulation tissue from previous intervention. There is no incisional hernia seen. LYMPH NODES: Normal. VASCULAR: Unremarkable. PELVIC VISCERA: Visualization of pelvic organs is very limited secondary to beam hardening artifact from bilateral hip prosthesis. There is no free air or free fluid. OSSEOUS STRUCTURES: No lytic or sclerotic process seen. CT/CT abdomen pelvis wo con IMPRESSION: Diffuse colonic diverticulosis without diverticulitis. Previous infraumbilical anterior abdominal wall incision with granulation tissue. There is no evidence of incisional hernia. Upper pole right renal cyst, stable. Small peripelvic left renal cysts are stable. Low-lying cecum in the pelvis with appendix not seen.
[2021-02-08] MEDS: Barium Sulfate Oral (Berry) 450 ML ORAL.SUSP 900 ML PO (15:07)
== END 2021-02-08 11:47 | disposition home or self-care (01) ==
LOC: HO.CT 11:46
PROVIDERS: PCP Internal Medicine; Visit Provider Surgery
DX: K43.2 Incisional hernia without obstruction or gangrene (principal)
CPT/HCPCS: 74176

== ENCOUNTER → 2021-02-10 13:44 | Outpatient (BNVA) | payer MEDICARE, SELFPAY | PROVIDERS: PCP Internal Medicine; Visit Provider Surgery ==

== ENCOUNTER → 2021-03-21 10:19 | Outpatient (BNVA) | payer MEDICARE, SELFPAY | PROVIDERS: PCP Internal Medicine; Visit Provider Internal Medicine | DX: J84.10 Pulmonary fibrosis, unspecified (principal); J44.9 Chronic obstructive pulmonary disease, unspecified; R05.9 Cough, unspecified | CPT/HCPCS: 99212 ==

== ENCOUNTER → 2021-04-25 13:13 | Outpatient (BNVA) | payer MEDICARE, SELFPAY | PROVIDERS: PCP Internal Medicine; Visit Provider Internal Medicine | DX: J84.10 Pulmonary fibrosis, unspecified (principal); J44.9 Chronic obstructive pulmonary disease, unspecified; R05.9 Cough, unspecified | CPT/HCPCS: 99212 ==

== ENCOUNTER → 2021-06-20 10:22 | Outpatient (BNVA) | payer MEDICARE, SELFPAY | PROVIDERS: PCP Internal Medicine; Visit Provider Internal Medicine | DX: J84.10 Pulmonary fibrosis, unspecified (principal); J44.9 Chronic obstructive pulmonary disease, unspecified; R05.9 Cough, unspecified | CPT/HCPCS: 94618; 99212 ==

== ENCOUNTER 2021-07-05 10:24 | Outpatient (REF) | payer MEDICARE, SELFPAY ==
--- NOTE | ~2021-07-05 | CT_ITS ---
EXAMINATION: CT CHEST WITHOUT CONTRAST CLINICAL INFORMATION: Pulmonary fibrosis COMPARISON: Previous chest CT scans most recent October 2019 TECHNIQUE: Multidetector volumetric CT imaging of the chest was done. Axial MIP volume rendering provided. Sagittal and coronal reformatted images were obtained. This CT examination was performed using dose optimization techniques as appropriate, variously including the following: *Automated exposure control *Adjustment of mA and/or kV according to patient size (this includes techniques or standardized protocols for targeted exams where dose is matched to indication/reason for exam; i.e. extremities or head) *Use of iterative reconstruction technique DLP: 157 mGy-cm FINDINGS: LUNGS: The lung volumes are low. There is evidence of interstitial lung disease with increased peripheral reticulation and interlobular septal thickening. This is seen diffusely throughout the lungs but greatest at the lung bases. There is a peripheral traction bronchiolectasis. No definite honeycombing is seen. This may be slightly increased from most recent exam October 2019. No pulmonary nodule is seen. No endobronchial or endotracheal lesion is seen. MEDIASTINUM: There is stable shotty mediastinal lymphadenopathy. No enlarged lymph nodes are seen. The heart does not appear enlarged. There is no pericardial effusion. The thoracic aorta is normal in caliber. PLEURA: There is no pleural effusion. No pleural mass or thickening. AXILLA: No lymphadenopathy. UPPER ABDOMEN: The gallbladder has been removed. There is a 2 cm cyst in the upper pole of the right kidney. OSSEOUS STRUCTURES: Unremarkable. CT/CT chest wo con IMPRESSION: Low lung volumes and interstitial lung disease. This may be slightly increased from most recent exam October 2019. Fleischner guidelines were followed.
== END 2021-07-05 10:25 | disposition home or self-care (01) ==
LOC: HO.CT 10:24
PROVIDERS: Visit Provider Internal Medicine
DX: J84.10 Pulmonary fibrosis, unspecified (principal)
CPT/HCPCS: 71250

== ENCOUNTER 2021-07-08 12:07 | Outpatient (REF) | payer MEDICARE, SELFPAY ==
--- NOTE | ~2021-07-08 | MR_ITS ---
EXAMINATION: MRI SOFT TISSUE NECK WITHOUT AND WITH CONTRAST CLINICAL INFORMATION: 71-year-old with swelling of right cheek. Fullness right parotid. Evaluate for possible lesion. COMPARISON: None TECHNIQUE: MRI of the soft tissue neck was obtained using routine sequences without and with contrast. Intravenous contrast: Gadavist 7.5 mL. Technical note: Some sequences are degraded by motion artifact. FINDINGS: SKULL BASE: The bony skull base appears grossly intact within the limitations of the exam. The visualized intracranial structures are remarkable for confluent T2 hyperintensity in the dee on both sides of the midline with no abnormal enhancement, which is a nonspecific finding but appears to be associated with multiple patchy and confluent zones of T2 hyperintensity in the supratentorial white matter bilaterally and possibly within the thalami bilaterally. Differential diagnostic considerations include chronic ischemic microangiopathy. In the setting of significant electrolyte imbalance, osmotic demyelination could be considered. Incidental prominent pacchionian granulation within the occipital bone centrally and to the right of midline, which is a developmental variant. Visualized orbital soft tissues appear unremarkable. SUPRAHYOID NECK: The nasopharynx, gambling supervisor and parapharyngeal spaces are unremarkable in appearance. The oropharynx is smoothly contoured with no abnormal enhancement. The parotid glands are bilaterally symmetric and are normal in morphology and signal intensity. No parotid mass lesions are identified and there is no abnormal parotid enhancement. The oral cavity, oral tongue, base of the tongue and floor of the mouth structures are symmetric with no abnormal enhancement. The submandibular glands are normal in appearance. No lymphadenopathy identified. Infrahyoid Neck: The vallecula, epiglottis, hypopharynx and larynx are within normal limits within the limitations of the study. Not optimally visualized. The thyroid gland is not clearly visualized. The lowest axial images were obtained at the C7-T1 level. No obvious thyromegaly on the coronal images. No infrahyoid lymphadenopathy identified. Upper Chest: Visualized upper thorax is grossly unremarkable in appearance within the limitations of the study. Skeletal: There is multilevel cervical DDD and spondylosis and there is partially imaged mild upper thoracic levoscoliosis. Other Comments: None. MR/MR orbits face neck wo/w con IMPRESSION: 1. No definite parotid mass lesion, lymphadenopathy or abnormal enhancement identified. No foci of restricted diffusion in the parotid glands. 2. Intracranial findings as discussed above. If clinically warranted, additional MRI of the brain without and with contrast may be of additional value. 3. Multilevel cervical degenerative changes.
[2021-07-08 13:06] LABS: Anion Gap 11 (12-20); Blood Urea Nitrogen 19 mg/dL (9-16); Carbon Dioxide 28 mmol/L (22-29); Chloride 108 mmol/L (96-108); Estimated Glomerular Filt Rate 45; Glucose Random 122 mg/dL (60-115); Sodium 143 mmol/L (135-145)
== END 2021-07-08 12:08 | disposition home or self-care (01) ==
LOC: HO.LAB 12:07
PROVIDERS: PCP Internal Medicine; Visit Provider Internal Medicine
DX: D11.0 Benign neoplasm of parotid gland (principal)
CPT/HCPCS: 36415; 70543; 80048; A9585

== ENCOUNTER 2021-08-01 10:03 | Outpatient (REF) | payer MEDICARE, SELFPAY ==
--- NOTE | 2021-08-01 17:18 | PFT_ITS ---
Forced vital capacity 56%, FEV1 67%. FEV1/FVC ratio is 90. FEF 25-75 is 98%, MVV 62%. Post bronchodilator therapy, no significant change except for some increase in FEF 25-75. Total lung capacity 49%. Residual volume 44%. Diffusion capacity is 66%. CONCLUSION: There is evidence of rather severe degree of restrictive pulmonary disorder. No significant obstructive airway disorder, however, good response in FEF 25-75, after bronchodilator therapy suggest that patient may have some small airway bronchospastic component. Clinical correlation is recommended. Kellie Lazar MD MSB/MODL / [id number]
== END 2021-08-01 10:04 | disposition home or self-care (01) ==
LOC: HO.RESP 10:03
PROVIDERS: PCP Internal Medicine; Visit Provider Internal Medicine
DX: J84.10 Pulmonary fibrosis, unspecified (principal); J44.9 Chronic obstructive pulmonary disease, unspecified
CPT/HCPCS: 94060; 94618; 94727; 94729; 99212

== ENCOUNTER → 2021-10-05 11:27 | Outpatient (BNVA) | payer MEDICARE, SELFPAY | PROVIDERS: PCP Internal Medicine; Visit Provider Internal Medicine | DX: J84.10 Pulmonary fibrosis, unspecified (principal); J44.9 Chronic obstructive pulmonary disease, unspecified | CPT/HCPCS: 99212 ==

== ENCOUNTER 2021-10-05 11:54 | Outpatient (REF) | payer MEDICARE, SELFPAY ==
[2021-10-05 12:07] LABS: MANUAL DIFF FLAG NO
[2021-10-05 13:17] LABS: Basophils Absolute Auto 0.1 X10*3/uL (0.0-0.2); Basophils Percent Auto 0.6 % (0-2); Eosinophils Absolute Auto 0.3 X10*3/uL (0.0-0.4); Eosinophils Percent Auto 2.8 % (0-4); Hematocrit 40.1 % (37.0-47.0); Hemoglobin 13.6 g/dl (12.0-16.0); Imm Gran Abs Auto 0.05 X10*3/uL (0.00-0.03); Imm Gran Pct Auto 0.4 % (0.0-0.4); Lymphocytes Percent Auto 25.8 % (20-40); Mean Corpuscular HGB Conc 33.9 g/dl (31.0-35.0); Mean Corpuscular Hemoglobin 32.7 pg (27.0-33.0); Mean Corpuscular Volume 96.4 fL (80.0-98.0); Monocytes Percent Auto 8.6 % (2-11); Neutrophils Absolute Auto 7.2 x10*3/uL (2.0-8.3); Neutrophils Percent Auto 61.8 % (45-73); Platelet Count 217 X10*3/uL (160-400); Red Blood Count 4.16 X10*6/uL (4.20-5.50); Red Cell Distribution Width 13.2 % (11.0-16.0); White Blood Count 11.6 X10*3/uL (4.8-10.8)
[2021-10-05 13:24] LABS: Estimated Average Glucose 108 mg/dL; Hemoglobin A1c % 5.4 %
[2021-10-05 13:48] LABS: Anion Gap 11 (12-20); Blood Urea Nitrogen 17 mg/dL (9-16); Calcium 10.2 mg/dL (8.4-10.2); Carbon Dioxide 26 mmol/L (22-29); Chloride 111 mmol/L (96-108); Estimated Glomerular Filt Rate 53; Glucose Random 119 mg/dL (60-115); Potassium 3.6 mmol/L (3.3-5.1); Sodium 144 mmol/L (135-145)
== END 2021-10-05 11:55 | disposition home or self-care (01) ==
LOC: HO.LAB 11:54
PROVIDERS: PCP Internal Medicine; Visit Provider Internal Medicine
DX: J44.9 Chronic obstructive pulmonary disease, unspecified (principal); K21.9 Gastro-esophageal reflux disease without esophagitis; N18.9 Chronic kidney disease, unspecified; R73.03 Prediabetes; J84.10 Pulmonary fibrosis, unspecified; R05.9 Cough, unspecified; J98.4 Other disorders of lung; R09.02 Hypoxemia
CPT/HCPCS: 36415; 80048; 83036; 85025; 99212

== ENCOUNTER → 2022-01-10 14:17 | Outpatient (BNVA) | payer MEDICARE, SELFPAY | PROVIDERS: PCP Internal Medicine; Visit Provider Internal Medicine | DX: J44.9 Chronic obstructive pulmonary disease, unspecified (principal); J84.10 Pulmonary fibrosis, unspecified; J98.4 Other disorders of lung; R09.02 Hypoxemia | CPT/HCPCS: 99212; Q3014 ==

== ENCOUNTER → 2022-04-05 13:45 | Outpatient (BNVA) | payer MEDICARE, SELFPAY | PROVIDERS: PCP Internal Medicine; Visit Provider Internal Medicine | DX: J44.9 Chronic obstructive pulmonary disease, unspecified (principal); J84.10 Pulmonary fibrosis, unspecified; J98.4 Other disorders of lung; R09.02 Hypoxemia | CPT/HCPCS: 99212 ==

== ENCOUNTER 2022-04-12 11:05 | Outpatient (REF) | payer MEDICARE, SELFPAY ==
[2022-04-12 11:24] LABS: MANUAL DIFF FLAG NO
[2022-04-12 12:07] LABS: Basophils Absolute Auto 0.1 X10*3/uL (0.0-0.2); Basophils Percent Auto 0.4 % (0-2); Eosinophils Absolute Auto 0.2 X10*3/uL (0.0-0.4); Eosinophils Percent Auto 1.4 % (0-4); Hematocrit 40.2 % (37.0-47.0); Hemoglobin 13.3 g/dl (12.0-16.0); Imm Gran Abs Auto 0.43 X10*3/uL (0.00-0.03); Imm Gran Pct Auto 2.8 % (0.0-0.4); Lymphocytes Percent Auto 12.7 % (20-40); Mean Corpuscular HGB Conc 33.1 g/dl (31.0-35.0); Mean Corpuscular Volume 96.9 fL (80.0-98.0); Mean Platelet Volume 9.5 fL (9.4-12.3); Monocytes Absolute Auto 1.2 X10*3/uL (0.1-1.2); Monocytes Percent Auto 7.5 % (2-11); NRBC Pct Auto 0.2 /100WBC (0.0-0.2); Neutrophils Absolute Auto 11.7 x10*3/uL (2.0-8.3); Neutrophils Percent Auto 75.2 % (45-73); Platelet Count 261 X10*3/uL (160-400); Red Blood Count 4.15 X10*6/uL (4.20-5.50); Red Cell Distribution Width 12.9 % (11.0-16.0); White Blood Count 15.5 X10*3/uL (4.8-10.8)
[2022-04-12 12:40] LABS: Alanine Aminotransferase 17 U/L (0-31); Albumin Level 3.6 g/dL (3.5-5.0); Alkaline Phosphatase 104 U/L (39-117); Anion Gap 12 (12-20); Aspartate Amino Transferase 14 U/L (5-31); Bilirubin Total 0.5 mg/dL (0.0-1.0); Blood Urea Nitrogen 20 mg/dL (9-16); Calcium 9.3 mg/dL (8.4-10.2); Carbon Dioxide 28 mmol/L (22-29); Chloride 108 mmol/L (96-108); Estimated Glomerular Filt Rate 50; Glucose Random 77 mg/dL (60-115); Potassium 3.5 mmol/L (3.3-5.1); Sodium 144 mmol/L (135-145); Total Protein 7.2 g/dL (6.5-8.0)
== END 2022-04-12 11:06 | disposition home or self-care (01) ==
LOC: HO.LAB 11:05
PROVIDERS: PCP Internal Medicine; Visit Provider Internal Medicine
DX: J44.9 Chronic obstructive pulmonary disease, unspecified (principal); K21.9 Gastro-esophageal reflux disease without esophagitis; N18.9 Chronic kidney disease, unspecified
CPT/HCPCS: 36415; 80053; 85025

== ENCOUNTER → 2022-04-25 15:22 | Outpatient (BNVA) | payer MEDICARE, SELFPAY | PROVIDERS: PCP Internal Medicine; Visit Provider Internal Medicine | DX: J44.9 Chronic obstructive pulmonary disease, unspecified (principal); J84.10 Pulmonary fibrosis, unspecified; J98.4 Other disorders of lung; R09.02 Hypoxemia; R05.9 Cough, unspecified | CPT/HCPCS: 99212 ==

== ENCOUNTER 2022-05-18 21:57 | Emergency (ER) | payer MEDICARE, SELFPAY ==
[2022-05-18 22:24] VITALS: BP 94/47; PULSE 103; RESP 24; TEMP 36.6; O2SAT 85; BMI 28.3
[2022-05-18 22:59] LABS: Influenza A PCR NEGATIVE (Negative); Influenza B PCR NEGATIVE (Negative); Resp Syncy Virus RNA Qual PCR NEGATIVE (Negative); SARS COV2 PCR INHOUSE NEGATIVE (Negative)
--- NOTE | 2022-05-19 00:16 | ECG_ITS ---
Test Reason : SOB Blood Pressure : / mmHG Vent. Rate : 088 BPM Atrial Rate : 088 BPM P-R Int : 124 ms QRS Dur : 082 ms QT Int : 358 ms P-R-T Axes : 048 000 040 degrees QTc Int : 433 ms Normal sinus rhythm Minimal voltage criteria for LVH, may be normal variant ( R in aVL ) Nonspecific T wave abnormality Abnormal ECG When compared with ECG of 09-JUN-2020 01:51, QT has lengthened Referred By: Pratibha Egan Electronically Signed By:Jesus Leblanc
[2022-05-19 00:54] LABS: MANUAL DIFF FLAG NO
[2022-05-19 00:56] LABS: Basophils Absolute Auto 0.1 X10*3/uL (0.0-0.2); Basophils Percent Auto 0.2 % (0-2); Eosinophils Absolute Auto 0.1 X10*3/uL (0.0-0.4); Eosinophils Percent Auto 0.3 % (0-4); Hematocrit 40.5 % (37.0-47.0); Hemoglobin 13.2 g/dl (12.0-16.0); Imm Gran Abs Auto 0.19 X10*3/uL (0.00-0.03); Imm Gran Pct Auto 0.9 % (0.0-0.4); Lymphocytes Absolute Auto 2.3 X10*3/uL (1.2-4.9); Lymphocytes Percent Auto 11.1 % (20-40); Mean Corpuscular HGB Conc 32.6 g/dl (31.0-35.0); Mean Corpuscular Hemoglobin 31.8 pg (27.0-33.0); Mean Corpuscular Volume 97.6 fL (80.0-98.0); Mean Platelet Volume 9.7 fL (9.4-12.3); Monocytes Absolute Auto 1.3 X10*3/uL (0.1-1.2); Monocytes Percent Auto 6.2 % (2-11); Neutrophils Absolute Auto 16.8 x10*3/uL (2.0-8.3); Neutrophils Percent Auto 81.3 % (45-73); Platelet Count 190 X10*3/uL (160-400); Red Blood Count 4.15 X10*6/uL (4.20-5.50); Red Cell Distribution Width 13.4 % (11.0-16.0); White Blood Count 20.6 X10*3/uL (4.8-10.8)
[2022-05-19] MEDS: methylPREDNISolone Sod Succ 125 MG/2 ML VIAL IVPUSH (00:57)
[2022-05-19] MEDS: Magnesium Sulfate/H2O 2 GM/50 ML PIGGYBACK IV (00:58)
[2022-05-19] MEDS: 0.9 % Sodium Chloride 1,000 ML 999 ML IVCONT (00:58)
[2022-05-19 01:03] VITALS: O2SAT 97
[2022-05-19 01:07] LABS: Lactic Acid 1.6 mmol/L (0.5-2.0)
[2022-05-19 01:11] LABS: Alanine Aminotransferase 12 U/L (0-31); Albumin Level 3.7 g/dL (3.5-5.0); Alkaline Phosphatase 101 U/L (39-117); Anion Gap 14 (12-20); Aspartate Amino Transferase 14 U/L (5-31); Bilirubin Direct < 0.2 mg/dL (0.0-0.5); Bilirubin Total 0.5 mg/dL (0.0-1.0); Blood Urea Nitrogen 18 mg/dL (9-16); Carbon Dioxide 28 mmol/L (22-29); Chloride 108 mmol/L (96-108); Creatinine Clr Calc Pharmacy 41.1; Estimated Glomerular Filt Rate 49; Glucose Random 103 mg/dL (60-115); Potassium 4.2 mmol/L (3.3-5.1); Sodium 146 mmol/L (135-145); Total Protein 7.4 g/dL (6.5-8.0)
[2022-05-19 01:17] LABS: Troponin-I High Sensitivity 7.1 ng/L (<3.5-17.0)
[2022-05-19] MEDS: Albuterol Sulfate (0.083%) 2.5 MG/3 ML VIAL.NEB 10 MG INHALE (01:20)
[2022-05-19 01:24] VITALS: PULSE 92; RESP 18; O2SAT 95
--- NOTE | 2022-05-19 01:25 | ED.URI ---
HPI - URI/Sore Throat General Chief Complaint: Upper Respiratory Symptoms Stated Complaint: flu like symptoms Time Seen by Provider: 05/18/22 22:38 Source: patient Mode of arrival: ambulatory Limitations: no limitations History of Present Illness HPI Narrative: Patient comes to the emergency room complaining of body aches, diarrhea, nausea, cough. Patient states that she usually uses 2 L at home, patient has history of COPD and restrictive lung disease. Patient uses 2 L of oxygen at home at baseline. Patient complaining of worsening cough, complaining of right lower chest pain and back pain from coughing so much. Related Data Home Medications Medication Instructions Recorded Confirmed montelukast 10 mg tablet 10 mg PO DAILY 05/12/20 04/25/22 cholecalciferol (vitamin D3) 25 25 mcg PO DAILY 07/13/20 04/25/22 mcg (1,000 unit) capsule famotidine 40 mg tablet 40 mg PO DAILY PRN 09/08/20 04/25/22 prednisone 5 mg tablet 5 mg PO Q OTHER DAY 04/05/22 04/25/22 donepezil 5 mg tablet 5 mg PO BEDTIME 04/25/22 04/25/22 sertraline 50 mg tablet 25 mg PO DAILY 04/25/22 04/25/22 Previous Rx's Medication Instructions Recorded albuterol sulfate 90 mcg/actuation 2 puff inhalation Q6H PRN 07/12/20 aerosol inhaler (Ventolin HFA) shortness of breath or wheezing 30 days #1 ea benzonatate 200 mg capsule 200 mg PO TID PRN for cough #90 02/17/22 caps fluticasone 113 mcg-salmeterol 14 1 inh inhalation BID COPD 30 days 04/05/22 mcg/actuation breath activated #1 ea powdr (AirDuo RespiClick) prednisone 10 mg tablet 40 mg PO DAILY 15 days #60 tabs 04/05/22 doxycycline hyclate 100 mg tablet 100 mg PO BID SINUSITIS 10 days 04/25/22 #20 tabs nintedanib 150 mg capsule (Ofev) 150 mg PO Q12H PROGRESSIVE 04/25/22 PULMONARY FIBROSIS 30 days #60 caps azithromycin 250 mg tablet 250 mg PO DAILY 4 days #4 tabs 05/19/22 prednisone 50 mg tablet 50 mg PO DAILY #4 tabs 05/19/22 Allergies Allergy/AdvReac Type Severity Reaction Status Date / Time latex [LATEX] Allergy Intermediate RASH Verified 04/25/22 16:17 Review of Systems Review of Systems: Constitutional : No Weight loss, No Fever, No Chills, No Night Sweats, No Fatigue, No Malaise ENT/Mouth : No Hearing loss, No Ear Pain, No Nasal Congestion, No Sinus Pain, No Hoarseness, No sore throat, No Rhinorrhea, No Swallowing Difficulty Eyes: No Eye Pain, No Swelling, No Redness, No Foreign Body, No Discharge, No Vision Changes Cardiovascular : No Chest Pain, No SOB, No Dyspnea on Exertion, No Orthopnea, No Edema, No Palpitations Respiratory : Complaining worsening cough, baseline wheezing, shortness of breath near Gastrointestinal : No Nausea, No Vomiting, No Diarrhea, No Constipation, No abdominal Pain, No Hematochezia, No Melena Genitourinary : no irregular bleeding, No Dysuria, No Urinary Frequency, No Hematuria, No Urinary Incontinence, No Urgency, No Flank Pain, No Urinary Flow Changes, No Hesitancy Musculoskeletal : No joint pain, No Myalgias, No Joint Swelling Skin : No Skin Lesions, No rash Neuro : No Weakness, No Numbness, No Paresthesias, No Loss of Consciousness, No Dizziness, No Headache Psych : No Anxiety/Panic, No Depression, No SI/HI/AH/VH, No Social Issues, Heme/Lymph: No Bruising, No Bleeding,No Lymphadenopathy Endocrine : No Polyuria, No Polydipsia, No Temperature Intolerance PMFSH Past Medical History Medical History COPD (chronic obstructive pulmonary disease) Cough Dementia Exercise hypoxemia Hypoxemia Pulmonary fibrosis Restrictive lung disease Sigmoid diverticulitis Surgical History H/O: hysterectomy History of bilateral hip replacements History of cholecystectomy Social History Social History Household Members: Spouse Housing: House Do you presently have visiting nurse or other home services: No Alcohol intake: never Second Hand Smoke Exposure: No Advance Directives: No Advance Directives Information Provided: Yes service: No Current occupational status: retired Physical Exam Vital Signs: Vital Signs: Last Vital Signs Temp 98 F 05/18/22 22:24 Pulse 92 05/19/22 01:24 Resp 18 05/19/22 01:24 BP 94/47 L 05/18/22 22:24 Pulse Ox 97 05/19/22 01:03 O2 Del Method 05/19/22 01:03 Oxygen Flow Rate 3 05/19/22 01:03 BMI result Body Mass Index 28.3 Const: Other: Appearance: Alert. Oriented X3. No acute distress. Eyes: Pupils equal, round and reactive to light. ENT: Pharynx normal. Neck: Normal inspection. Neck supple. No lymph nodes noted. No crepitus CVS: Normal heart rate and rhythm. Pulses normal. Normal S1 and S2 Respiratory: Patient's oxygen saturation 86% on 2 L. Improved with 94% with 6 L. Abdomen: Soft and nontender. No rigidity. No distention. Skin: Skin warm and dry. Normal skin color. Normal skin turgor. Extremities: No lower extremity edema. No Lacerations. No Rash Neuro: Oriented X 3. No motor deficit. No sensory deficit. Moving all extremities. No slurred speech. CN 2 through 12 grossly intact Psych: calm, cooperative, very anxious Course Course Course Narrative: After the breathing treatment, Solu-Medrol, patient states that she feels much better. Patient states that she did not want to come to the hospital, patient states that she has chronic fibrosis, every time that she coughs, the patient states that her family panics and brings her to the emergency room and she gets very anxious. Patient states that she feels much better. Feels ready to go home. Patient's lactic acid within normal limits, white blood cell count chronically elevated, patient take steroids every day. Patient states that couple of days ago started taking p.o. cefuroxime. Patient instructed to continue taking cefuroxime and also adding azithromycin and steroids. Patient and granddaughter acute plan. Patient states that she would like to avoid staying in the hospital. At this time, patient's oxygen saturation is 94% on her usual 2 L. airway seems much more clear than on arrival, good air movement. Patient will be discharged home after her IV medications. Medications Administered Generic Name Dose Route Start Last Admin Trade Name Freq PRN Reason Stop Dose Admin Magnesium Sulfate 2 gm in 50 mls @ 25 mls/hr 05/19/22 00:17 05/19/22 00:58 Magnesium Sulfate/H2o IV 05/19/22 02:16 25 mls/hr ONCE ONE Administration Discontinued Medications Generic Name Dose Route Start Last Admin Trade Name Jagq PRN Reason Stop Dose Admin Albuterol Sulfate 10 mg 05/19/22 00:17 05/19/22 01:20 Albuterol Sulfate (0.083%) 2.5 Mg/3 Ml Vial.Neb INHALE 05/19/22 00:18 10 mg ONCE ONE Administration Sodium Chloride 1,000 mls @ 999 mls/hr 05/19/22 00:15 05/19/22 00:58 Ns IVCONT 05/19/22 01:15 999 mls/hr .Q1H1M ONE Administration Methylprednisolone Sodium Succinate 125 mg 05/19/22 00:17 05/19/22 00:57 Methylprednisolone Sod Succ 125 Mg/2 Ml Vial IVPUSH 05/19/22 00:18 125 mg ONCE ONE Administration Medical Decision Making Lab Data Result Diagrams: 05/19/22 00:48 05/19/22 00:48 Labs: Lab Results 05/18/22 05/19/22 05/19/22 Range/Units 22:12 00:48 00:48 WBC 20.6 H (4.8-10.8) X10*3/uL RBC 4.15 L (4.20-5.50) X10*6/uL Hgb 13.2 (12.0-16.0) g/dl Hct 40.5 (37.0-47.0) % MCV 97.6 (80.0-98.0) fL MCH 31.8 (27.0-33.0) pg MCHC 32.6 (31.0-35.0) g/dl RDW 13.4 (11.0-16.0) % Plt Count 190 D (160-400) X10*3/uL MPV 9.7 (9.4-12.3) fL Immature Gran % (Auto) 0.9 H (0.0-0.4) % Neut % (Auto) 81.3 H (45-73) % Lymph % (Auto) 11.1 L (20-40) % Mcnairy % (Auto) 6.2 (2-11) % Eos % (Auto) 0.3 (0-4) % Baso % (Auto) 0.2 (0-2) % Lymph # (Auto) 2.3 (1.2-4.9) X10*3/uL Mcnairy # (Auto) 1.3 H (0.1-1.2) X10*3/uL Eos # (Auto) 0.1 (0.0-0.4) X10*3/uL Baso # (Auto) 0.1 (0.0-0.2) X10*3/uL Abs Immat Gran (auto) 0.19 H (0.00-0.03) X10*3/uL Absolute Neuts (auto) 16.8 H (2.0-8.3) x10*3/uL Absolute Nucleated RBC 0.000 (0.0-0.012) X10*3/uL Nucleated RBC % (auto) 0.0 (0.0-0.2) /100WBC Sodium 146 H (135-145) mmol/L Potassium 4.2 (3.3-5.1) mmol/L Chloride 108 (96-108) mmol/L Carbon Dioxide 28 (22-29) mmol/L Anion Gap 14 (12-20) BUN 18 H (9-16) mg/dL Creatinine 1.09 (0.5-1.4) mg/dL Estim Creat Clear Calc 41.1 Estimated GFR 49 Random Glucose 103 (60-115) mg/dL Lactic Acid (0.5-2.0) mmol/L Calcium 10.0 D (8.4-10.2) mg/dL Total Bilirubin 0.5 (0.0-1.0) mg/dL Direct Bilirubin < 0.2 (0.0-0.5) mg/dL AST 14 (5-31) U/L ALT 12 (0-31) U/L Alkaline Phosphatase 101 (39-117) U/L Troponin I High Sens (<3.5-17.0) ng/L Total Protein 7.4 (6.5-8.0) g/dL Albumin 3.7 (3.5-5.0) g/dL Influenza Type A (PCR) NEGATIVE (Negative) Influenza Type B (PCR) NEGATIVE (Negative) RSV RNA Qual (PCR) NEGATIVE (Negative) SARS-CoV-2 RNA (RT-PCR) NEGATIVE (Negative) 05/19/22 05/19/22 Range/Units 00:48 00:48 WBC (4.8-10.8) X10*3/uL RBC (4.20-5.50) X10*6/uL Hgb (12.0-16.0) g/dl Hct (37.0-47.0) % MCV (80.0-98.0) fL MCH (27.0-33.0) pg MCHC (31.0-35.0) g/dl RDW (11.0-16.0) % Plt Count (160-400) X10*3/uL MPV (9.4-12.3) fL Immature Gran % (Auto) (0.0-0.4) % Neut % (Auto) (45-73) % Lymph % (Auto) (20-40) % Mcnairy % (Auto) (2-11) % Eos % (Auto) (0-4) % Baso % (Auto) (0-2) % Lymph # (Auto) (1.2-4.9) X10*3/uL Mcnairy # (Auto) (0.1-1.2) X10*3/uL Eos # (Auto) (0.0-0.4) X10*3/uL Baso # (Auto) (0.0-0.2) X10*3/uL Abs Immat Gran (auto) (0.00-0.03) X10*3/uL Absolute Neuts (auto) (2.0-8.3) x10*3/uL Absolute Nucleated RBC (0.0-0.012) X10*3/uL Nucleated RBC % (auto) (0.0-0.2) /100WBC Sodium (135-145) mmol/L Potassium (3.3-5.1) mmol/L Chloride (96-108) mmol/L Carbon Dioxide (22-29) mmol/L Anion Gap (12-20) BUN (9-16) mg/dL Creatinine (0.5-1.4) mg/dL Estim Creat Clear Calc Estimated GFR Random Glucose (60-115) mg/dL Lactic Acid 1.6 (0.5-2.0) mmol/L Calcium (8.4-10.2) mg/dL Total Bilirubin (0.0-1.0) mg/dL Direct Bilirubin (0.0-0.5) mg/dL AST (5-31) U/L ALT (0-31) U/L Alkaline Phosphatase (39-117) U/L Troponin I High Sens 7.1 (<3.5-17.0) ng/L Total Protein (6.5-8.0) g/dL Albumin (3.5-5.0) g/dL Influenza Type A (PCR) (Negative) Influenza Type B (PCR) (Negative) RSV RNA Qual (PCR) (Negative) SARS-CoV-2 RNA (RT-PCR) (Negative) Discharge Plan Discharge Clinical Impression: Chronic lung disease Patient Disposition: Home, Self-Care Instructions: Pulmonary Fibrosis (ED) Additional Instructions: Continue taking cefuroxime, also start taking azithromycin. Please follow-up with your primary care physician tomorrow. If you have any worsening or new symptoms, please return to the emergency room or call 911 Prescriptions: New prednisone 50 mg tablet 50 mg PO DAILY Qty: 4 0RF azithromycin 250 mg tablet 250 mg PO DAILY 4 Days Qty: 4 0RF Rx Instructions: start on day 2 of therapy No Action albuterol sulfate [Ventolin HFA] 90 mcg/actuation HFA aerosol inhaler 2 puff inhalation Q6H PRN (Reason: shortness of breath or wheezing) 30 Days Qty: 1 6RF Rx Instructions: rescue inhaler not used recently per granddaughter car benzonatate 200 mg capsule 200 mg PO TID PRN (Reason: for cough) Qty: 90 3RF cholecalciferol (vitamin D3) 25 mcg (1,000 unit) Capsule 25 mcg PO DAILY montelukast 10 mg tablet 10 mg PO DAILY famotidine 40 mg tablet 40 mg PO DAILY PRN sertraline 50 mg tablet 25 mg PO DAILY donepezil 5 mg tablet 5 mg PO BEDTIME prednisone 5 mg tablet 5 mg PO Q OTHER DAY fluticasone propion-salmeterol [AirDuo RespiClick] 113-14 mcg/actuation aerosol powdr breath activated 1 inh inhalation BID 30 Days Qty: 1 4RF prednisone 10 mg tablet 40 mg PO DAILY 15 Days Qty: 60 0RF Rx Instructions: 4 TABS DAILY FOR 5 DAYS , THEN 2 TABS DAILY FOR 5 DAYS , THEN 10 MG DAILY doxycycline hyclate 100 mg tablet 100 mg PO BID 10 Days Qty: 20 0RF Ofev 150 mg capsule 150 mg PO Q12H 30 Days Qty: 60 5RF
[2022-05-19 01:55] VITALS: PULSE 98; RESP 14; O2SAT 95
[2022-05-19 01:57] VITALS: BP 119/65
[2022-05-19] MEDS: Benzonatate 100 MG CAPSULE 200 MG PO (02:04)
[2022-05-19] MEDS: cefTRIAXone sodium 1 GM in 0.9 % Sodium Chloride 50 ML IV (02:04)
[2022-05-19 02:05] LABS: B Type Natriuretic Peptide 21 pg/mL (<100)
[2022-05-19] MEDS: Azithromycin 500 MG in 0.9 % Sodium Chloride 250 ML 125 MG IV (02:33)
[2022-05-19 04:48] VITALS: BP 127/68; PULSE 93; RESP 14; O2SAT 96
== END 2022-05-19 04:50 | disposition home or self-care (01) ==
PROVIDERS: Emergency Provider Emergency Medicine; PCP Internal Medicine
DX: J44.9 Chronic obstructive pulmonary disease, unspecified (principal); Z20.822 Contact with and (suspected) exposure to COVID-19; R06.02 Shortness of breath; Z99.81 Dependence on supplemental oxygen
CPT/HCPCS: 0241U; 36415; 71045; 80048; 80076; 83605; 83880; 84484; 85025; 87040; 93005; 96361; 96365; 96367; 96375; 99285; J0456; J0696; J2930; J3475

== ENCOUNTER 2022-05-22 17:25 | Inpatient (IN) | payer MEDICARE, SELFPAY ==
[2022-05-22] VITALS (7 sets, daily range): BP systolic 139–186; BP diastolic 72–73; PULSE 66–89; RESP 20–30; TEMP 36.7–37.1; O2SAT 86–97; BMI 29.7
--- NOTE | ~2022-05-22 | XR_ITS ---
EXAMINATION: XR CHEST CLINICAL INFORMATION: Hypoxia COMPARISON: 05/24/2022 TECHNIQUE: Frontal view of the chest was obtained. FINDINGS: Left subclavian central venous catheter terminates in the right atrium, stable from prior. Increasingly coalescent diffuse bilateral patchy airspace opacities. No large pleural effusion. No pneumothorax. Cardiac silhouette poorly delineated amidst the airspace disease. XR/XR chest 1V IMPRESSION: Increasingly coalescent diffuse bilateral patchy airspace opacities.
--- NOTE | ~2022-05-22 | XR_ITS ---
EXAMINATION: XR CHEST CLINICAL INFORMATION: SOB. COMPARISON: None TECHNIQUE: Frontal view of the chest was obtained. FINDINGS: The lungs are hypoexpanded with diffuse bilateral interstitial lung disease. There is now increased patchy opacity suspicious of superimposed infection such as interstitial pneumonitis or pneumonia. Heart size and perivascular is normal. No gross bony abnormality seen. There is mild dextroscoliosis of dorsolumbar spine. XR/XR chest 1V IMPRESSION: Diffuse bilateral interstitial lung disease with superimposed bilateral patchy opacity suspicious of infarction such as interstitial pneumonitis or pneumonia.
--- NOTE | ~2022-05-22 | XR_ITS ---
EXAMINATION: XR CHEST CLINICAL INFORMATION: Central line placement COMPARISON: Previous chest x-ray from earlier the same day TECHNIQUE: Frontal view of the chest was obtained. FINDINGS: There is a new left central line with tip projecting over the SVC. There is volume loss to the left hemithorax with shift of the central mediastinal structures to the left. There is diffuse bilateral airspace disease. There may be a left small pleural effusion. These findings are unchanged from earlier exam. There is no right pleural effusion. There is no pneumothorax. XR/XR chest 1V IMPRESSION: Left central line tip projects over SVC.
--- NOTE | 2022-05-22 17:30 | ECG_ITS ---
Test Reason : DYSPNEA Blood Pressure : / mmHG Vent. Rate : 092 BPM Atrial Rate : 092 BPM P-R Int : 098 ms QRS Dur : 084 ms QT Int : 320 ms P-R-T Axes : 033 -01 032 degrees QTc Int : 395 ms Sinus rhythm with short MD Possible Left atrial enlargement Minimal voltage criteria for LVH, may be normal variant ( R in aVL ) Nonspecific ST and T wave abnormality Abnormal ECG When compared with ECG of 19-MAY-2022 00:50, No significant change was found Referred By: Sai Gonzalez Electronically Signed By:Jesus Leblanc
--- NOTE | 2022-05-22 17:33 | ED_ITS ---
HPI - General Adult General Chief complaint: Dyspnea <MAYA Herman - Last Filed: 06/04/22 09:14> Stated complaint: COPD <MAYA Herman - Last Filed: 06/04/22 09:14> Time Seen by Provider: 05/22/22 17:34 <MYAA Herman - Last Filed: 06/04/22 09:14> Source: patient <Nancy Barraza NP - Last Filed: 05/23/22 03:46> Mode of arrival: ambulatory <Nancy Barraza NP - Last Filed: 05/23/22 03:46> Limitations: language barrier <Nancy Barraza NP - Last Filed: 05/23/22 03:46> History of Present Illness HPI narrative: 72-year-old female presents for increased shortness of breath and weakness over the past 3 days. Has required continuous use of her nasal cannula O2, usually requires oxygen to sleep or as needed. Patient is short of breath, cannot speak in complete sentences, and has a respiration rate of 40. <Nancy Barraza NP - Last Filed: 05/23/22 03:46> Onset (ago): day(s) (3) <Nancy Barraza NP - Last Filed: 05/23/22 03:46> Severity: moderate <Nancy Barraza NP - Last Filed: 05/23/22 03:46> Associated symptoms: cough and shortness of breath <CHRIS Loco Last Filed: 05/23/22 03:46> Related Data Home medications: Home Medications Medication Instructions Recorded Confirmed montelukast 10 mg tablet 10 mg PO DAILY 05/12/20 05/22/22 famotidine 40 mg tablet 40 mg PO DAILY PRN Acid Reflux 09/08/20 05/22/22 donepezil 5 mg tablet 5 mg PO BEDTIME 04/25/22 05/22/22 sertraline 50 mg tablet 50 mg PO DAILY 04/25/22 05/22/22 cefuroxime axetil 250 mg tablet 1 tab PO BID 05/22/22 05/22/22 codeine 10 mg-guaifenesin 100 mg/5 5 ml PO BID PRN Cough 05/22/22 05/22/22 mL oral liquid Previous Rx's Medication Instructions Recorded albuterol sulfate 90 mcg/actuation 2 puff inhalation Q6H PRN 07/12/20 aerosol inhaler (Ventolin HFA) shortness of breath or wheezing 30 days #1 ea benzonatate 200 mg capsule 200 mg PO TID PRN for cough #90 02/17/22 caps fluticasone 113 mcg-salmeterol 14 1 inh inhalation BID COPD 30 days 04/05/22 mcg/actuation breath activated #1 ea powdr (AirDuo RespiClick) azithromycin 250 mg tablet 250 mg PO DAILY 4 days #4 tabs 05/19/22 prednisone 50 mg tablet 50 mg PO DAILY #4 tabs 05/19/22 <MAYA Herman - Last Filed: 06/04/22 09:14> Allergies/adverse reactions: Allergies Allergy/AdvReac Type Severity Reaction Status Date / Time latex [LATEX] Allergy Intermediate RASH Verified 04/25/22 16:17 <MAYA Herman - Last Filed: 06/04/22 09:14> Review of Systems Review of Systems: Constitutional: No Fever, No Chills Cardiovascular: No Chest Pain, positive SOB, positive Orthopnea, no Edema Respiratory: Positive Cough, No Sputum, No Wheezing, positive dyspnea Gastrointestinal: No Nausea, No Vomiting, No Diarrhea, No abdominal Pain, No Hematochezia, No Melena Genitourinary: No Dysuria, No Urinary Frequency, No Hematuria Musculoskeletal: No joint pain, No Myalgias Skin: No Skin Lesions, No rash Neuro: No Weakness, No Numbness, No Dizziness, No Headache <Nancy Barraza NP - Last Filed: 05/23/22 03:46> Yes all other systems are reviewed and are negative <Nancy Barraza NP - Last Filed: 05/23/22 03:46> [facility] Past Medical History Attestation statement: The following information was validated with the patient. <Nancy Barraza NP - Last Filed: 05/23/22 03:46> Source: old records reviewed <Nancy Barraza NP - Last Filed: 05/23/22 03:46> Medical History: Medical History COPD (chronic obstructive pulmonary disease) Cough Dementia Exercise hypoxemia Hypoxemia Pneumonia Pulmonary fibrosis Respiratory failure with hypoxia and hypercapnia Restrictive lung disease Sigmoid diverticulitis <MAYA Herman - Last Filed: 06/04/22 09:14> Surgical History: Surgical History H/O: hysterectomy History of bilateral hip replacements History of cholecystectomy <MAYA Herman - Last Filed: 06/04/22 09:14> Social History Social History: Social History Household Members: Spouse Household Members Other:: 1 Housing: House Do you presently have visiting nurse or other home services: No Alcohol intake: never Patient Tobacco Use Status: Never used Tobacco e-Cigarette/Vaping Use: Never Used Second Hand Smoke Exposure: No service: No Current occupational status: retired <MAYA Herman - Last Filed: 06/04/22 09:14> Physical Exam ED Vital Signs: Vital Signs - 24 hr 05/22/22 17:27 05/22/22 17:53 05/22/22 17:59 Temperature 98.0 F Pulse Rate 88 77 66 Respiratory Rate 30 H 22 H 23 H Blood Pressure 186/72 H Pulse Oximetry 86 L 96 Oxygen Delivery Method Nasal Cannula High Flow Nasal Cannula Oxygen Flow Rate 45 Fraction of Inspired Oxygen 50 05/22/22 18:00 05/22/22 19:50 05/22/22 20:12 Temperature 98.7 F Pulse Rate 89 Respiratory Rate 20 28 H 29 H Blood Pressure 140/72 H Pulse Oximetry 97 Oxygen Delivery Method High Flow Nasal Cannula Oxygen Flow Rate Fraction of Inspired Oxygen 05/22/22 21:08 Temperature Pulse Rate 85 Respiratory Rate 21 H Blood Pressure 139/73 Pulse Oximetry 95 Oxygen Delivery Method High Flow Nasal Cannula Oxygen Flow Rate 40 Fraction of Inspired Oxygen BMI result Body Mass Index 29.7 <MYAA Herman - Last Filed: 06/04/22 09:14> Vital Signs - 24 hr 05/22/22 17:27 05/22/22 17:53 05/22/22 17:59 Temperature 98.0 F Pulse Rate 88 77 66 Respiratory Rate 30 H 22 H 23 H Blood Pressure 186/72 H Pulse Oximetry 86 L 96 Oxygen Delivery Method Nasal Cannula High Flow Nasal Cannula Oxygen Flow Rate 45 Fraction of Inspired Oxygen 50 05/22/22 18:00 05/22/22 19:50 05/22/22 20:12 Temperature 98.7 F Pulse Rate 89 Respiratory Rate 20 28 H 29 H Blood Pressure 140/72 H Pulse Oximetry 97 Oxygen Delivery Method High Flow Nasal Cannula Oxygen Flow Rate Fraction of Inspired Oxygen 05/22/22 21:08 Temperature Pulse Rate 85 Respiratory Rate 21 H Blood Pressure 139/73 Pulse Oximetry 95 Oxygen Delivery Method High Flow Nasal Cannula Oxygen Flow Rate 40 Fraction of Inspired Oxygen BMI result Body Mass Index 29.7 <Nancy Barraza NP - Last Filed: 05/23/22 03:46> Appearance: Alert. Oriented X3. Moderate distress. Eyes: Pupils equal, round and reactive to light. Sclera nonicteric. ENT: Pharynx normal. Dry mucous membranes. Neck: Normal inspection. Neck supple. CVS: Normal heart rate and rhythm. Pulses normal. Respiratory: Tachypneic. Moderate respiratory distress. Diminished lung sounds to the bases, wheezing to upper lobes. Abdomen: Soft and nontender. Skin: Skin warm and dry. Normal skin color. Normal skin turgor. Extremities: Moves all extremities against resistance. Gait not assessed for s afety. Neuro: No motor deficit. No sensory deficit. Cranial nerves 2-12 intact. <Nancy Barraza NP - Last Filed: 05/23/22 03:46> Course Course Course Narrative: RME: 72 yold female presents to the ED for SOB. patient has COPD. Patient is 83% on 3 liters of oxygen. patient brought in to the ED immedilatey. EKG, labs, chest xray, and meds ordered. <MAYA Herman - Last Filed: 06/04/22 09:14> RME: 72 yold female presents to the ED for SOB. patient has COPD. Patient is 83% on 3 liters of oxygen. patient brought in to the ED immedilatey. EKG, labs, chest xray, and meds ordered. 72-year-old female presents for shortness of breath, tachypneic upon arrival. Respiration rate in the 40s, on O2 at 86% on room air. Respiratory called, plan is for high-flow, albuterol, and Solu-Medrol. Patient was evaluated approximately 3 days ago in the emergency department for shortness of breath, had a negative workup, benign labs and was discharged home. Patient has been taking medications as prescribed. Patient's daughter stated that she is concerned because over the past 3 days she noticed significant decline and the dependent on oxygen. Will wait for COVID influenza RSV. 19:20 labs indicate respiratory alkalosis mix with metabolic acidosis. Chest x- ray indicates pneumonia. While patient's lactic acid is elevated, I do not feel that this patient is septic at this time. I did order azithromycin and ceftriaxone. 20:45 discussion with hospitalist, plan of care is to admit for COPD exacerbation, and pneumonia. Repeat lactic acid is 3.7 in increased from value at 17:46. <Nancy Barraza ACID CONCENTRATOR - Last Filed: 05/23/22 03:46> Consultations Consultation #1: candace <Nancy Barraza ACID CONCENTRATOR - Last Filed: 05/23/22 03:46> Time: 20:45 <Nancy Barraza ACID CONCENTRATOR - Last Filed: 05/23/22 03:46> Medications Administered Discontinued Medications Generic Name Dose Route Start Last Admin Trade Name Freq PRN Reason Stop Dose Admin Acetaminophen 650 mg 05/22/22 22:02 05/23/22 04:47 Acetaminophen 325 Mg Tablet PO 650 mg Q6H PRN Administration Pain, Mild (Pain Scale 1-3) Acetazolamide 500 mg 05/25/22 09:00 05/25/22 21:20 Acetazolamide Sodium 500 Mg Vial IVPUSH 05/25/22 21:01 500 mg BID AGUILAR Administration Acetazolamide 500 mg 05/26/22 09:00 05/26/22 20:13 Acetazolamide Sodium 500 Mg Vial IVPUSH 05/26/22 21:01 500 mg Q12H AGUILAR Administration Albuterol Sulfate 7.5 mg/ 10 mg 05/22/22 17:37 05/22/22 17:59 Albuterol Sulfate 2.5 mg INHALE 05/22/22 17:38 10 mg ONCE ONE Administration Albuterol/Ipratropium 3 ml 05/22/22 17:32 05/22/22 18:01 Albuterol/Iprat 2.5/0.5mg 3 Ml Ampul.Neb INHALE 05/22/22 17:33 Not Given ONCE ONE Albuterol/Ipratropium 3 ml 05/22/22 22:02 05/23/22 23:06 Albuterol/Iprat 2.5/0.5mg 3 Ml Ampul.Neb INHALE 3 ml RQ4H PRN Administration Shortness of Breath/Wheezing Albuterol/Ipratropium 3 ml 05/23/22 08:00 05/26/22 21:31 Albuterol/Iprat 2.5/0.5mg 3 Ml Ampul.Neb INHALE 3 ml RQ4H WHILE AWAKE AGUILAR Administration Azithromycin 500 mg 05/23/22 20:00 05/23/22 20:46 Azithromycin 500 Mg Tablet PO 500 mg Q24H AGUILAR Administration Bisacodyl 10 mg 05/26/22 09:10 05/26/22 12:02 Bisacodyl [address] 05/26/22 09:11 10 mg ONCE ONE Administration Donepezil HCl 5 mg 05/23/22 21:00 05/23/22 20:46 Donepezil Hcl 5 Mg Tablet PO 5 mg BEDTIME AGUILAR Administration Enoxaparin Sodium 40 mg 05/22/22 23:00 05/27/22 00:20 Enoxaparin Sodium 40 Mg/0.4 Ml Syringe SUBCUT 40 mg Q24H AGUILAR Administration Fentanyl 50 mcg 05/26/22 09:11 05/26/22 09:32 Fentanyl Citrate/Pf 100 Mcg/2 Ml Vial IVPUSH 50 mcg Q5M PRN Administration pain or WOB Protocol Fluticasone/Vilanterol 1 puff 05/23/22 09:00 05/23/22 08:06 Fluticasone/Vilanterol 100/25 Blst.W.Dev INHALE Not Given QD AGUILAR Fluticasone/Vilanterol 1 puff 05/24/22 08:00 05/24/22 07:51 Fluticasone/Vilanterol 100/25 Blst.W.Dev INHALE Not Given RDAILY AGUILAR Furosemide 40 mg 05/24/22 08:11 05/24/22 08:56 Furosemide 40 Mg/4 Ml Vial IVPUSH 05/24/22 08:12 40 mg STAT STA Administration Protocol Furosemide 40 mg 05/25/22 00:21 05/25/22 00:35 Furosemide 40 Mg/4 Ml Vial IVPUSH 05/25/22 00:22 40 mg ONCE ONE Administration Protocol Furosemide 20 mg 05/26/22 09:10 05/26/22 09:15 Furosemide 20 Mg/2 Ml Vial IVPUSH 05/26/22 09:11 20 mg ONCE ONE Administration Protocol Furosemide 40 mg 05/27/22 02:26 05/27/22 02:52 Furosemide 40 Mg/4 Ml Vial IVPUSH 05/27/22 02:27 40 mg ONCE ONE Administration Protocol Guaifenesin/Codeine Phosphate 5 ml 05/23/22 05:32 05/24/22 05:37 Guaifen/Codeine Sf 200/20/10ml 10 Ml Liquid PO 5 ml BID PRN Administration Cough Hydralazine HCl 5 mg 05/23/22 05:32 05/23/22 05:53 Hydralazine Hcl 20 Mg/Ml Vial IVPUSH 05/23/22 05:33 5 mg ONCE ONE Administration Protocol Hydromorphone HCl 1 mg 05/24/22 13:47 05/24/22 10:46 Hydromorphone Hcl 1 Mg/Ml Syringe IVPUSH 05/24/22 13:48 1 mg ONCE ONE Administration Protocol Hydromorphone HCl 0.5 mg 05/24/22 13:48 05/27/22 01:41 Hydromorphone Hcl 0.5 Mg/0.5 Ml Syringe IVPUSH 0.5 mg Q1H PRN Administration WOB Protocol Hydromorphone HCl 1 mg 05/24/22 13:48 05/27/22 04:39 Hydromorphone Hcl 1 Mg/Ml Syringe IVPUSH 1 mg Q1H PRN Administration Severe WOB Protocol Ceftriaxone Sodium 1 gm/ 50 mls @ 100 mls/hr 05/22/22 19:21 05/22/22 20:23 Sodium Chloride IV 05/22/22 19:50 Infused ONCE ONE Infusion Azithromycin 500 mg/ Sodium 250 mls @ 125 mls/hr 05/22/22 19:21 05/23/22 00:46 Chloride IV 05/22/22 21:20 Infused ONCE ONE Infusion Sodium Chloride 1,000 mls @ 999 mls/hr 05/22/22 19:30 05/22/22 21:01 Ns IVCONT 05/22/22 20:30 Infused .Q1H1M AGUILAR Infusion Ceftriaxone Sodium 1 gm/ 50 mls @ 100 mls/hr 05/23/22 19:00 05/23/22 20:36 Sodium Chloride IV Infused Q24H AGUILAR Infusion Lactated Ringer's 1,000 mls @ 100 mls/hr 05/23/22 06:45 05/24/22 09:04 Lr IVCONT Infused .Q10H AGUILAR Infusion Vancomycin HCl 1,000 mg/ 535 mls @ 267.5 mls/hr 05/24/22 08:03 05/24/22 12:48 Vancomycin HCl 750 mg/ Sodium IV 05/24/22 10:02 Infused Chloride ONCE ONE Infusion Piperacillin Sod/Tazobactam 100 mls @ 200 mls/hr 05/24/22 08:15 05/25/22 08:48 Sod 4.5 gm/ Sodium Chloride IV Infused Q6H AGUILAR Infusion Vancomycin HCl 1,000 mg/ 270 mls @ 270 mls/hr 05/25/22 10:00 05/25/22 12:13 Sodium Chloride IV Not Given Q24H AGUILAR Norepinephrine Bitartrate 8 mg in 250 mls @ 0 mls/hr 05/24/22 14:00 05/26/22 08:54 Levophed IV Infused .Q0M AGUILAR Titration Protocol Per Protocol Magnesium Sulfate 5 meq/ 840 mls @ 35 mls/hr 05/25/22 18:00 05/26/22 18:04 Calcium Gluconate 4.65 meq/ IV 05/26/22 17:59 Infused Multivitamins 12 ml/ Trace DAILY@1800 AGUILAR Infusion Metals 1.2 ml/ Amino Acids/ Dextrose Doxycycline Hyclate 100 mg/ 250 mls @ 166.67 mls/hr 05/25/22 13:00 05/27/22 02:03 Sodium Chloride IV 05/30/22 12:59 Infused Q12H AGUILAR Infusion Fentanyl 1,000 mcg in 100 mls @ 0 mls/hr 05/25/22 12:45 05/27/22 05:10 Sublimaze/Ns IVCONT 0 mcg/hr .Q0M AGUILAR 0 mls/hr Titration Protocol Per Protocol Dextrose 1,000 mls @ 100 mls/hr 05/25/22 13:00 05/26/22 08:54 D5w IVCONT Infused .Q10H AGUILAR Infusion Potassium Chloride 40 meq in 100 mls @ 50 mls/hr 05/25/22 19:00 05/25/22 21:37 Potassium Chloride/H20 IV 05/25/22 20:59 Infused ONCE ONE Infusion Potassium Chloride 120 meq/ 1,320 mls @ 55 mls/hr 05/26/22 18:00 05/27/22 04:21 Magnesium Sulfate 10 meq/ IV 05/27/22 17:59 0 mls/hr Potassium Phosphate 45 mmol/ DAILY@1800 [facility] Infusion Calcium Gluconate 9.3 meq/ Multivitamins 10 ml/ Trace Metals 1.5 ml/ Amino Acids/ Dextrose Fat Emulsion Intravenous 138 mls @ 23 mls/hr 05/26/22 18:00 05/27/22 01:27 Intralipid IV 05/26/22 23:59 Infused DAILY@1800 [facility] Infusion Fat Emulsion Intravenous 138 mls @ 23 mls/hr 05/27/22 00:00 05/27/22 04:21 Intralipid IV 05/27/22 05:59 0 mls/hr DAILY@0000 [facility] Infusion Insulin Human Lispro 0 unit 05/26/22 00:00 05/27/22 00:38 Insulin Lispro 100 Unit/Ml 3 Ml Vial SUBCUT 4 unit Q6H AGUILAR Administration Protocol Methylprednisolone Sodium Succinate 125 mg 05/22/22 17:32 05/22/22 17:53 Methylprednisolone Sod Succ 125 Mg/2 Ml Vial IVPUSH 05/22/22 17:33 125 mg ONCE ONE Administration Methylprednisolone Sodium Succinate 40 mg 05/23/22 06:00 05/23/22 05:51 Methylprednisolone Sod Succ 40 Mg/Ml Vial IVPUSH 40 mg Q12H AGUILAR Administration Methylprednisolone Sodium Succinate 60 mg 05/23/22 12:30 05/24/22 13:00 Methylprednisolone Sod Succ 125 Mg/2 Ml Vial IVPUSH 60 mg Q6H AGUILAR Administration Methylprednisolone Sodium Succinate 80 mg 05/24/22 21:00 05/25/22 04:42 Methylprednisolone Sod Succ 125 Mg/2 Ml Vial IVPUSH 80 mg Q8H AGUILAR Administration Methylprednisolone Sodium Succinate 250 mg 05/25/22 13:00 05/27/22 00:21 Methylprednisolone Sod Succ 125 Mg/2 Ml Vial IVPUSH 05/28/22 07:01 250 mg Q6H AGUILAR Administration Montelukast Sodium 10 mg 05/23/22 09:00 05/24/22 07:49 Montelukast Sodium 10 Mg Tablet PO 10 mg DAILY AGUILAR Administration Nitroglycerin 1 inch 05/24/22 08:20 05/24/22 09:55 Nitroglycerin 2 % Oint 1 Gm Packet TRANSDERMA 05/24/22 08:21 1 inch ONCE ONE Administration Nitroglycerin 2 inch 05/26/22 17:23 05/26/22 16:58 Nitroglycerin 2 % Oint 1 Gm Packet TRANSDERMA 05/26/22 17:24 2 inch ONCE ONE Administration Ondansetron HCl 4 mg 05/22/22 22:02 05/23/22 04:48 Ondansetron Hcl 4 Mg/2 Ml Vial IVPUSH 4 mg Q8H PRN Administration Nausea and Vomiting Scopolamine 1.5 mg 05/27/22 04:43 05/27/22 04:55 Scopolamine 1.5 Mg Patch.Td.3 EAR-BEHIND 05/27/22 04:44 1.5 mg Q3D ONE Administration Sertraline HCl 50 mg 05/23/22 09:00 05/24/22 07:49 Sertraline Hcl 50 Mg Tablet PO 50 mg DAILY AGUILAR Administration Sodium Chloride 3 ml 05/23/22 00:00 05/24/22 07:49 0.9 % Sodium Chloride Flush 3 Ml Syringe IVFLUSH 3 ml QSHIFT AGUILAR Administration Trazodone HCl 50 mg 05/23/22 23:11 05/23/22 23:28 Trazodone Hcl 50 Mg Tablet PO 05/23/22 23:12 50 mg ONCE ONE Administration <MAYA Herman - Last Filed: 06/04/22 09:14> Medications Administered Discontinued Medications Generic Name Dose Route Start Last Admin Trade Name Freq PRN Reason Stop Dose Admin Acetaminophen 650 mg 05/22/22 22:02 05/23/22 04:47 Acetaminophen 325 Mg Tablet PO 650 mg Q6H PRN Administration Pain, Mild (Pain Scale 1-3) Acetazolamide 500 mg 05/25/22 09:00 05/25/22 21:20 Acetazolamide Sodium 500 Mg Vial IVPUSH 05/25/22 21:01 500 mg BID AGUILAR Administration Acetazolamide 500 mg 05/26/22 09:00 05/26/22 20:13 Acetazolamide Sodium 500 Mg Vial IVPUSH 05/26/22 21:01 500 mg Q12H AGUILAR Administration Albuterol Sulfate 7.5 mg/ 10 mg 05/22/22 17:37 05/22/22 17:59 Albuterol Sulfate 2.5 mg INHALE 05/22/22 17:38 10 mg ONCE ONE Administration Albuterol/Ipratropium 3 ml 05/22/22 17:32 05/22/22 18:01 Albuterol/Iprat 2.5/0.5mg 3 Ml Ampul.Neb INHALE 05/22/22 17:33 Not Given ONCE ONE Albuterol/Ipratropium 3 ml 05/22/22 22:02 05/23/22 23:06 Albuterol/Iprat 2.5/0.5mg 3 Ml Ampul.Neb INHALE 3 ml RQ4H PRN Administration Shortness of Breath/Wheezing Albuterol/Ipratropium 3 ml 05/23/22 08:00 05/26/22 21:31 Albuterol/Iprat 2.5/0.5mg 3 Ml Ampul.Neb INHALE 3 ml RQ4H WHILE AWAKE AGUILAR Administration Azithromycin 500 mg 05/23/22 20:00 05/23/22 20:46 Azithromycin 500 Mg Tablet PO 500 mg Q24H AGUILAR Administration Bisacodyl 10 mg 05/26/22 09:10 05/26/22 12:02 Bisacodyl [address] 05/26/22 09:11 10 mg ONCE ONE Administration Donepezil HCl 5 mg 05/23/22 21:00 05/23/22 20:46 Donepezil Hcl 5 Mg Tablet PO 5 mg BEDTIME AGUILAR Administration Enoxaparin Sodium 40 mg 05/22/22 23:00 05/27/22 00:20 Enoxaparin Sodium 40 Mg/0.4 Ml Syringe SUBCUT 40 mg Q24H AGUILAR Administration Fentanyl 50 mcg 05/26/22 09:11 05/26/22 09:32 Fentanyl Citrate/Pf 100 Mcg/2 Ml Vial IVPUSH 50 mcg Q5M PRN Administration pain or WOB Protocol Fluticasone/Vilanterol 1 puff 05/23/22 09:00 05/23/22 08:06 Fluticasone/Vilanterol 100/25 Blst.W.Dev INHALE Not Given QD AGUILAR Fluticasone/Vilanterol 1 puff 05/24/22 08:00 05/24/22 07:51 Fluticasone/Vilanterol 100/25 Blst.W.Dev INHALE Not Given RDAILY AGUILAR Furosemide 40 mg 05/24/22 08:11 05/24/22 08:56 Furosemide 40 Mg/4 Ml Vial IVPUSH 05/24/22 08:12 40 mg STAT STA Administration Protocol Furosemide 40 mg 05/25/22 00:21 05/25/22 00:35 Furosemide 40 Mg/4 Ml Vial IVPUSH 05/25/22 00:22 40 mg ONCE ONE Administration Protocol Furosemide 20 mg 05/26/22 09:10 05/26/22 09:15 Furosemide 20 Mg/2 Ml Vial IVPUSH 05/26/22 09:11 20 mg ONCE ONE Administration Protocol Furosemide 40 mg 05/27/22 02:26 05/27/22 02:52 Furosemide 40 Mg/4 Ml Vial IVPUSH 05/27/22 02:27 40 mg ONCE ONE Administration Protocol Guaifenesin/Codeine Phosphate 5 ml 05/23/22 05:32 05/24/22 05:37 Guaifen/Codeine Sf 200/20/10ml 10 Ml Liquid PO 5 ml BID PRN Administration Cough Hydralazine HCl 5 mg 05/23/22 05:32 05/23/22 05:53 Hydralazine Hcl 20 Mg/Ml Vial IVPUSH 05/23/22 05:33 5 mg ONCE ONE Administration Protocol Hydromorphone HCl 1 mg 05/24/22 13:47 05/24/22 10:46 Hydromorphone Hcl 1 Mg/Ml Syringe IVPUSH 05/24/22 13:48 1 mg ONCE ONE Administration Protocol Hydromorphone HCl 0.5 mg 05/24/22 13:48 05/27/22 01:41 Hydromorphone Hcl 0.5 Mg/0.5 Ml Syringe IVPUSH 0.5 mg Q1H PRN Administration WOB Protocol Hydromorphone HCl 1 mg 05/24/22 13:48 05/27/22 04:39 Hydromorphone Hcl 1 Mg/Ml Syringe IVPUSH 1 mg Q1H PRN Administration Severe WOB Protocol Ceftriaxone Sodium 1 gm/ 50 mls @ 100 mls/hr 05/22/22 19:21 05/22/22 20:23 Sodium Chloride IV 05/22/22 19:50 Infused ONCE ONE Infusion Azithromycin 500 mg/ Sodium 250 mls @ 125 mls/hr 05/22/22 19:21 05/23/22 00:46 Chloride IV 05/22/22 21:20 Infused ONCE ONE Infusion Sodium Chloride 1,000 mls @ 999 mls/hr 05/22/22 19:30 05/22/22 21:01 Ns IVCONT 05/22/22 20:30 Infused .Q1H1M AGUILAR Infusion Ceftriaxone Sodium 1 gm/ 50 mls @ 100 mls/hr 05/23/22 19:00 05/23/22 20:36 Sodium Chloride IV Infused Q24H AGUILAR Infusion Lactated Ringer's 1,000 mls @ 100 mls/hr 05/23/22 06:45 05/24/22 09:04 Lr IVCONT Infused .Q10H AGUILAR Infusion Vancomycin HCl 1,000 mg/ 535 mls @ 267.5 mls/hr 05/24/22 08:03 05/24/22 12:48 Vancomycin HCl 750 mg/ Sodium IV 05/24/22 10:02 Infused Chloride ONCE ONE Infusion Piperacillin Sod/Tazobactam 100 mls @ 200 mls/hr 05/24/22 08:15 05/25/22 08:48 Sod 4.5 gm/ Sodium Chloride IV Infused Q6H AGUILAR Infusion Vancomycin HCl 1,000 mg/ 270 mls @ 270 mls/hr 05/25/22 10:00 05/25/22 12:13 Sodium Chloride IV Not Given Q24H AGUILAR Norepinephrine Bitartrate 8 mg in 250 mls @ 0 mls/hr 05/24/22 14:00 05/26/22 08:54 Levophed IV Infused .Q0M AGUILAR Titration Protocol Per Protocol Magnesium Sulfate 5 meq/ 840 mls @ 35 mls/hr 05/25/22 18:00 05/26/22 18:04 Calcium Gluconate 4.65 meq/ IV 05/26/22 17:59 Infused Multivitamins 12 ml/ Trace DAILY@1800 AGUILAR Infusion Metals 1.2 ml/ Amino Acids/ Dextrose Doxycycline Hyclate 100 mg/ 250 mls @ 166.67 mls/hr 05/25/22 13:00 05/27/22 02:03 Sodium Chloride IV 05/30/22 12:59 Infused Q12H AGUILAR Infusion Fentanyl 1,000 mcg in 100 mls @ 0 mls/hr 05/25/22 12:45 05/27/22 05:10 Sublimaze/Ns IVCONT 0 mcg/hr .Q0M AGUILAR 0 mls/hr Titration Protocol Per Protocol Dextrose 1,000 mls @ 100 mls/hr 05/25/22 13:00 05/26/22 08:54 D5w IVCONT Infused .Q10H AGUILAR Infusion Potassium Chloride 40 meq in 100 mls @ 50 mls/hr 05/25/22 19:00 05/25/22 21:37 Potassium Chloride/H20 IV 05/25/22 20:59 Infused ONCE ONE Infusion Potassium Chloride 120 meq/ 1,320 mls @ 55 mls/hr 05/26/22 18:00 05/27/22 04:21 Magnesium Sulfate 10 meq/ IV 05/27/22 17:59 0 mls/hr Potassium Phosphate 45 mmol/ DAILY@1800 AGUILAR Infusion Calcium Gluconate 9.3 meq/ Multivitamins 10 ml/ Trace Metals 1.5 ml/ Amino Acids/ Dextrose Fat Emulsion Intravenous 138 mls @ 23 mls/hr 05/26/22 18:00 05/27/22 01:27 Intralipid IV 05/26/22 23:59 Infused DAILY@1800 AGUILAR Infusion Fat Emulsion Intravenous 138 mls @ 23 mls/hr 05/27/22 00:00 05/27/22 04:21 Intralipid IV 05/27/22 05:59 0 mls/hr DAILY@0000 [facility] Infusion Insulin Human Lispro 0 unit 05/26/22 00:00 05/27/22 00:38 Insulin Lispro 100 Unit/Ml 3 Ml Vial SUBCUT 4 unit Q6H AGUILAR Administration Protocol Methylprednisolone Sodium Succinate 125 mg 05/22/22 17:32 05/22/22 17:53 Methylprednisolone Sod Succ 125 Mg/2 Ml Vial IVPUSH 05/22/22 17:33 125 mg ONCE ONE Administration Methylprednisolone Sodium Succinate 40 mg 05/23/22 06:00 05/23/22 05:51 Methylprednisolone Sod Succ 40 Mg/Ml Vial IVPUSH 40 mg Q12H AGUILAR Administration Methylprednisolone Sodium Succinate 60 mg 05/23/22 12:30 05/24/22 13:00 Methylprednisolone Sod Succ 125 Mg/2 Ml Vial IVPUSH 60 mg Q6H AGUILAR Administration Methylprednisolone Sodium Succinate 80 mg 05/24/22 21:00 05/25/22 04:42 Methylprednisolone Sod Succ 125 Mg/2 Ml Vial IVPUSH 80 mg Q8H AGUILAR Administration Methylprednisolone Sodium Succinate 250 mg 05/25/22 13:00 05/27/22 00:21 Methylprednisolone Sod Succ 125 Mg/2 Ml Vial IVPUSH 05/28/22 07:01 250 mg Q6H AGUILAR Administration Montelukast Sodium 10 mg 05/23/22 09:00 05/24/22 07:49 Montelukast Sodium 10 Mg Tablet PO 10 mg DAILY AGUILAR Administration Nitroglycerin 1 inch 05/24/22 08:20 05/24/22 09:55 Nitroglycerin 2 % Oint 1 Gm Packet TRANSDERMA 05/24/22 08:21 1 inch ONCE ONE Administration Nitroglycerin 2 inch 05/26/22 17:23 05/26/22 16:58 Nitroglycerin 2 % Oint 1 Gm Packet TRANSDERMA 05/26/22 17:24 2 inch ONCE ONE Administration Ondansetron HCl 4 mg 05/22/22 22:02 05/23/22 04:48 Ondansetron Hcl 4 Mg/2 Ml Vial IVPUSH 4 mg Q8H PRN Administration Nausea and Vomiting Scopolamine 1.5 mg 05/27/22 04:43 05/27/22 04:55 Scopolamine 1.5 Mg Patch.Td.3 EAR-BEHIND 05/27/22 04:44 1.5 mg Q3D ONE Administration Sertraline HCl 50 mg 05/23/22 09:00 05/24/22 07:49 Sertraline Hcl 50 Mg Tablet PO 50 mg DAILY AGUILAR Administration Sodium Chloride 3 ml 05/23/22 00:00 05/24/22 07:49 0.9 % Sodium Chloride Flush 3 Ml Syringe IVFLUSH 3 ml QSHIFT AGUILAR Administration Trazodone HCl 50 mg 05/23/22 23:11 05/23/22 23:28 Trazodone Hcl 50 Mg Tablet PO 05/23/22 23:12 50 mg ONCE ONE Administration <Nancy Barraza ACID CONCENTRATOR - Last Filed: 05/23/22 03:46> Medical Decision Making Differential Diagnosis Differential Diagnoses: The differential diagnosis associated with the presentation includes <Nancy Barraza ACID CONCENTRATOR - Last Filed: 05/23/22 03:46> COVID, RSV, influenza, pneumonia, pneumothorax, hemothorax, COPD exacerbation, ACS <Nancy Barraza ACID CONCENTRATOR - Last Filed: 05/23/22 03:46> Admission/Observation Consideration of admission/observation: Escalation of care including admission/observation considered <Nancy Barraza NP - Last Filed: 05/23/22 03:46> Plan is for admission <Nancy Barraza NP - Last Filed: 05/23/22 03:46> Consult Healthcare Provider Management of the patient was discussed with: Hospitalist <Nancy Barraza NP - Last Filed: 05/23/22 03:46> Lab Data MDM Lab Attestation statement: I reviewed the patient's lab results. <Nancy Barraza NP - Last Filed: 05/23/22 03:46> Result Diagrams: 05/26/22 05:00 05/26/22 05:00 <MAYA Herman - Last Filed: 06/04/22 09:14> Labs: Lab Results 05/22/22 05/22/22 05/22/22 Range/Units 17:46 17:46 17:46 WBC 15.9 H (4.8-10.8) X10*3/uL RBC 3.95 L (4.20-5.50) X10*6/uL Hgb 12.4 (12.0-16.0) g/dl Hct 38.4 (37.0-47.0) % MCV 97.2 (80.0-98.0) fL MCH 31.4 (27.0-33.0) pg MCHC 32.3 (31.0-35.0) g/dl RDW 13.1 (11.0-16.0) % Plt Count 231 (160-400) X10*3/uL MPV 9.4 (9.4-12.3) fL Immature Gran % (Auto) 3.9 H (0.0-0.4) % Neut % (Auto) 88.8 H (45-73) % Lymph % (Auto) 5.2 L (20-40) % Union % (Auto) 1.8 L (2-11) % Eos % (Auto) 0.0 (0-4) % Baso % (Auto) 0.3 (0-2) % Lymph # (Auto) 0.8 L (1.2-4.9) X10*3/uL [place] # (Auto) 0.3 (0.1-1.2) X10*3/uL Eos # (Auto) 0.0 (0.0-0.4) X10*3/uL Baso # (Auto) 0.0 (0.0-0.2) X10*3/uL Abs Immat Gran (auto) 0.62 H (0.00-0.03) X10*3/uL Absolute Neuts (auto) 14.1 H (2.0-8.3) x10*3/uL Absolute Nucleated RBC 0.030 H (0.0-0.012) X10*3/uL Nucleated RBC % (auto) 0.2 (0.0-0.2) /100WBC PT 13.0 (10.0-13.1) SEC INR 1.1 (0.9-1.1) APTT 23.2 L (26.0-36.4) SEC VBG pH (7.32-7.43) VBG pCO2 mmHg VBG pO2 mmHg VBG HCO3 (22-26) mmol/L VBG O2 Saturation % VBG Base Excess mmol/L Sodium 141 (135-145) mmol/L Potassium 4.0 (3.3-5.1) mmol/L Chloride 106 (96-108) mmol/L Carbon Dioxide 23 (22-29) mmol/L Anion Gap 16 (12-20) BUN 20 H (9-16) mg/dL Creatinine 1.03 (0.5-1.4) mg/dL Estim Creat Clear Calc 42.8 Estimated GFR 53 Random Glucose 241 H (60-115) mg/dL Lactic Acid (0.5-2.0) mmol/L Lactic Acid F/U @ 2Hr (0.5-2.0) mmol/L Calcium 9.6 (8.4-10.2) mg/dL Total Bilirubin 0.6 (0.0-1.0) mg/dL AST 19 (5-31) U/L ALT 17 (0-31) U/L Alkaline Phosphatase 95 (39-117) U/L Troponin I High Sens (<3.5-17.0) ng/L B-Natriuretic Peptide (<100) pg/mL Total Protein 7.2 (6.5-8.0) g/dL Albumin 3.6 (3.5-5.0) g/dL Influenza Type A (PCR) (Negative) Influenza Type B (PCR) (Negative) RSV RNA Qual (PCR) (Negative) SARS-CoV-2 RNA (RT-PCR) (Negative) 05/22/22 05/22/22 05/22/22 Range/Units 17:46 17:46 17:46 WBC (4.8-10.8) X10*3/uL RBC (4.20-5.50) X10*6/uL Hgb (12.0-16.0) g/dl Hct (37.0-47.0) % MCV (80.0-98.0) fL MCH (27.0-33.0) pg MCHC (31.0-35.0) g/dl RDW (11.0-16.0) % Plt Count (160-400) X10*3/uL MPV (9.4-12.3) fL Immature Gran % (Auto) (0.0-0.4) % Neut % (Auto) (45-73) % Lymph % (Auto) (20-40) % [place] % (Auto) (2-11) % Eos % (Auto) (0-4) % Baso % (Auto) (0-2) % Lymph # (Auto) (1.2-4.9) X10*3/uL [place] # (Auto) (0.1-1.2) X10*3/uL Eos # (Auto) (0.0-0.4) X10*3/uL Baso # (Auto) (0.0-0.2) X10*3/uL Abs Immat Gran (auto) (0.00-0.03) X10*3/uL Absolute Neuts (auto) (2.0-8.3) x10*3/uL Absolute Nucleated RBC (0.0-0.012) X10*3/uL Nucleated RBC % (auto) (0.0-0.2) /100WBC PT (10.0-13.1) SEC INR (0.9-1.1) APTT (26.0-36.4) SEC VBG pH (7.32-7.43) VBG pCO2 mmHg VBG pO2 mmHg VBG HCO3 (22-26) mmol/L VBG O2 Saturation % VBG Base Excess mmol/L Sodium (135-145) mmol/L Potassium (3.3-5.1) mmol/L Chloride (96-108) mmol/L Carbon Dioxide (22-29) mmol/L Anion Gap (12-20) BUN (9-16) mg/dL Creatinine (0.5-1.4) mg/dL Estim Creat Clear Calc Estimated GFR Random Glucose (60-115) mg/dL Lactic Acid 3.5 H* (0.5-2.0) mmol/L Lactic Acid F/U @ 2Hr (0.5-2.0) mmol/L Calcium (8.4-10.2) mg/dL Total Bilirubin (0.0-1.0) mg/dL AST (5-31) U/L ALT (0-31) U/L Alkaline Phosphatase (39-117) U/L Troponin I High Sens 12.0 D (<3.5-17.0) ng/L B-Natriuretic Peptide (<100) pg/mL Total Protein (6.5-8.0) g/dL Albumin (3.5-5.0) g/dL Influenza Type A (PCR) NEGATIVE (Negative) Influenza Type B (PCR) NEGATIVE (Negative) RSV RNA Qual (PCR) NEGATIVE (Negative) SARS-CoV-2 RNA (RT-PCR) NEGATIVE (Negative) 05/22/22 05/22/22 05/22/22 Range/Units 17:46 17:52 20:13 WBC (4.8-10.8) X10*3/uL RBC (4.20-5.50) X10*6/uL Hgb (12.0-16.0) g/dl Hct (37.0-47.0) % MCV (80.0-98.0) fL MCH (27.0-33.0) pg MCHC (31.0-35.0) g/dl RDW (11.0-16.0) % Plt Count (160-400) X10*3/uL MPV (9.4-12.3) fL Immature Gran % (Auto) (0.0-0.4) % Neut % (Auto) (45-73) % Lymph % (Auto) (20-40) % [place] % (Auto) (2-11) % Eos % (Auto) (0-4) % Baso % (Auto) (0-2) % Lymph # (Auto) (1.2-4.9) X10*3/uL [place] # (Auto) (0.1-1.2) X10*3/uL Eos # (Auto) (0.0-0.4) X10*3/uL Baso # (Auto) (0.0-0.2) X10*3/uL Abs Immat Gran (auto) (0.00-0.03) X10*3/uL Absolute Neuts (auto) (2.0-8.3) x10*3/uL Absolute Nucleated RBC (0.0-0.012) X10*3/uL Nucleated RBC % (auto) (0.0-0.2) /100WBC PT (10.0-13.1) SEC INR (0.9-1.1) APTT (26.0-36.4) SEC VBG pH 7.45 H (7.32-7.43) VBG pCO2 29 mmHg VBG pO2 59 mmHg VBG HCO3 21 L (22-26) mmol/L VBG O2 Saturation 86.0 % VBG Base Excess -1.7 mmol/L Sodium (135-145) mmol/L Potassium (3.3-5.1) mmol/L Chloride (96-108) mmol/L Carbon Dioxide (22-29) mmol/L Anion Gap (12-20) BUN (9-16) mg/dL Creatinine (0.5-1.4) mg/dL Estim Creat Clear Calc Estimated GFR Random Glucose (60-115) mg/dL Lactic Acid (0.5-2.0) mmol/L Lactic Acid F/U @ 2Hr 3.7 H* (0.5-2.0) mmol/L Calcium (8.4-10.2) mg/dL Total Bilirubin (0.0-1.0) mg/dL AST (5-31) U/L ALT (0-31) U/L Alkaline Phosphatase (39-117) U/L Troponin I High Sens (<3.5-17.0) ng/L B-Natriuretic Peptide 223 H (<100) pg/mL Total Protein (6.5-8.0) g/dL Albumin (3.5-5.0) g/dL Influenza Type A (PCR) (Negative) Influenza Type B (PCR) (Negative) RSV RNA Qual (PCR) (Negative) SARS-CoV-2 RNA (RT-PCR) (Negative) <MAYA Herman - Last Filed: 06/04/22 09:14> Lab Results 05/22/22 05/22/22 05/22/22 Range/Units 17:46 17:46 17:46 WBC 15.9 H (4.8-10.8) X10*3/uL RBC 3.95 L (4.20-5.50) X10*6/uL Hgb 12.4 (12.0-16.0) g/dl Hct 38.4 (37.0-47.0) % MCV 97.2 (80.0-98.0) fL MCH 31.4 (27.0-33.0) pg MCHC 32.3 (31.0-35.0) g/dl RDW 13.1 (11.0-16.0) % Plt Count 231 (160-400) X10*3/uL MPV 9.4 (9.4-12.3) fL Immature Gran % (Auto) 3.9 H (0.0-0.4) % Neut % (Auto) 88.8 H (45-73) % Lymph % (Auto) 5.2 L (20-40) % [place] % (Auto) 1.8 L (2-11) % Eos % (Auto) 0.0 (0-4) % Baso % (Auto) 0.3 (0-2) % Lymph # (Auto) 0.8 L (1.2-4.9) X10*3/uL [place] # (Auto) 0.3 (0.1-1.2) X10*3/uL Eos # (Auto) 0.0 (0.0-0.4) X10*3/uL Baso # (Auto) 0.0 (0.0-0.2) X10*3/uL Abs Immat Gran (auto) 0.62 H (0.00-0.03) X10*3/uL Absolute Neuts (auto) 14.1 H (2.0-8.3) x10*3/uL Absolute Nucleated RBC 0.030 H (0.0-0.012) X10*3/uL Nucleated RBC % (auto) 0.2 (0.0-0.2) /100WBC PT 13.0 (10.0-13.1) SEC INR 1.1 (0.9-1.1) APTT 23.2 L (26.0-36.4) SEC VBG pH (7.32-7.43) VBG pCO2 mmHg VBG pO2 mmHg VBG HCO3 (22-26) mmol/L VBG O2 Saturation % VBG Base Excess mmol/L Sodium 141 (135-145) mmol/L Potassium 4.0 (3.3-5.1) mmol/L Chloride 106 (96-108) mmol/L Carbon Dioxide 23 (22-29) mmol/L Anion Gap 16 (12-20) BUN 20 H (9-16) mg/dL Creatinine 1.03 (0.5-1.4) mg/dL Estim Creat Clear Calc 42.8 Estimated GFR 53 Random Glucose 241 H (60-115) mg/dL Lactic Acid (0.5-2.0) mmol/L Lactic Acid F/U @ 2Hr (0.5-2.0) mmol/L Calcium 9.6 (8.4-10.2) mg/dL Total Bilirubin 0.6 (0.0-1.0) mg/dL AST 19 (5-31) U/L ALT 17 (0-31) U/L Alkaline Phosphatase 95 (39-117) U/L Troponin I High Sens (<3.5-17.0) ng/L B-Natriuretic Peptide (<100) pg/mL Total Protein 7.2 (6.5-8.0) g/dL Albumin 3.6 (3.5-5.0) g/dL Influenza Type A (PCR) (Negative) Influenza Type B (PCR) (Negative) RSV RNA Qual (PCR) (Negative) SARS-CoV-2 RNA (RT-PCR) (Negative) 05/22/22 05/22/22 05/22/22 Range/Units 17:46 17:46 17:46 WBC (4.8-10.8) X10*3/uL RBC (4.20-5.50) X10*6/uL Hgb (12.0-16.0) g/dl Hct (37.0-47.0) % MCV (80.0-98.0) fL MCH (27.0-33.0) pg MCHC (31.0-35.0) g/dl RDW (11.0-16.0) % Plt Count (160-400) X10*3/uL MPV (9.4-12.3) fL Immature Gran % (Auto) (0.0-0.4) % Neut % (Auto) (45-73) % Lymph % (Auto) (20-40) % [place] % (Auto) (2-11) % Eos % (Auto) (0-4) % Baso % (Auto) (0-2) % Lymph # (Auto) (1.2-4.9) X10*3/uL [place] # (Auto) (0.1-1.2) X10*3/uL Eos # (Auto) (0.0-0.4) X10*3/uL Baso # (Auto) (0.0-0.2) X10*3/uL Abs Immat Gran (auto) (0.00-0.03) X10*3/uL Absolute Neuts (auto) (2.0-8.3) x10*3/uL Absolute Nucleated RBC (0.0-0.012) X10*3/uL Nucleated RBC % (auto) (0.0-0.2) /100WBC PT (10.0-13.1) SEC INR (0.9-1.1) APTT (26.0-36.4) SEC VBG pH (7.32-7.43) VBG pCO2 mmHg VBG pO2 mmHg VBG HCO3 (22-26) mmol/L VBG O2 Saturation % VBG Base Excess mmol/L Sodium (135-145) mmol/L Potassium (3.3-5.1) mmol/L Chloride (96-108) mmol/L Carbon Dioxide (22-29) mmol/L Anion Gap (12-20) BUN (9-16) mg/dL Creatinine (0.5-1.4) mg/dL Estim Creat Clear Calc Estimated GFR Random Glucose (60-115) mg/dL Lactic Acid 3.5 H* (0.5-2.0) mmol/L Lactic Acid F/U @ 2Hr (0.5-2.0) mmol/L Calcium (8.4-10.2) mg/dL Total Bilirubin (0.0-1.0) mg/dL AST (5-31) U/L ALT (0-31) U/L Alkaline Phosphatase (39-117) U/L Troponin I High Sens 12.0 D (<3.5-17.0) ng/L B-Natriuretic Peptide (<100) pg/mL Total Protein (6.5-8.0) g/dL Albumin (3.5-5.0) g/dL Influenza Type A (PCR) NEGATIVE (Negative) Influenza Type B (PCR) NEGATIVE (Negative) RSV RNA Qual (PCR) NEGATIVE (Negative) SARS-CoV-2 RNA (RT-PCR) NEGATIVE (Negative) 05/22/22 05/22/22 05/22/22 Range/Units 17:46 17:52 20:13 WBC (4.8-10.8) X10*3/uL RBC (4.20-5.50) X10*6/uL Hgb (12.0-16.0) g/dl Hct (37.0-47.0) % MCV (80.0-98.0) fL MCH (27.0-33.0) pg MCHC (31.0-35.0) g/dl RDW (11.0-16.0) % Plt Count (160-400) X10*3/uL MPV (9.4-12.3) fL Immature Gran % (Auto) (0.0-0.4) % Neut % (Auto) (45-73) % Lymph % (Auto) (20-40) % Union % (Auto) (2-11) % Eos % (Auto) (0-4) % Baso % (Auto) (0-2) % Lymph # (Auto) (1.2-4.9) X10*3/uL [place] # (Auto) (0.1-1.2) X10*3/uL Eos # (Auto) (0.0-0.4) X10*3/uL Baso # (Auto) (0.0-0.2) X10*3/uL Abs Immat Gran (auto) (0.00-0.03) X10*3/uL Absolute Neuts (auto) (2.0-8.3) x10*3/uL Absolute Nucleated RBC (0.0-0.012) X10*3/uL Nucleated RBC % (auto) (0.0-0.2) /100WBC PT (10.0-13.1) SEC INR (0.9-1.1) APTT (26.0-36.4) SEC VBG pH 7.45 H (7.32-7.43) VBG pCO2 29 mmHg VBG pO2 59 mmHg VBG HCO3 21 L (22-26) mmol/L VBG O2 Saturation 86.0 % VBG Base Excess -1.7 mmol/L Sodium (135-145) mmol/L Potassium (3.3-5.1) mmol/L Chloride (96-108) mmol/L Carbon Dioxide (22-29) mmol/L Anion Gap (12-20) BUN (9-16) mg/dL Creatinine (0.5-1.4) mg/dL Estim Creat Clear Calc Estimated GFR Random Glucose (60-115) mg/dL Lactic Acid (0.5-2.0) mmol/L Lactic Acid F/U @ 2Hr 3.7 H* (0.5-2.0) mmol/L Calcium (8.4-10.2) mg/dL Total Bilirubin (0.0-1.0) mg/dL AST (5-31) U/L ALT (0-31) U/L Alkaline Phosphatase (39-117) U/L Troponin I High Sens (<3.5-17.0) ng/L B-Natriuretic Peptide 223 H (<100) pg/mL Total Protein (6.5-8.0) g/dL Albumin (3.5-5.0) g/dL Influenza Type A (PCR) (Negative) Influenza Type B (PCR) (Negative) RSV RNA Qual (PCR) (Negative) SARS-CoV-2 RNA (RT-PCR) (Negative) <Nancy Barraza NP - Last Filed: 05/23/22 03:46> Independent Interpretation I performed an independent interpretation of an: EKG and Plain X-Ray <Nancy Barraza NP - Last Filed: 05/23/22 03:46> Radiology Impression Discussion of test interpretation with radiology: I have reviewed the radiologist's reading. <Nancy Barraza NP - Last Filed: 05/23/22 03:46> Radiologist Impression: EXAMINATION: XR CHEST CLINICAL INFORMATION: Pneumonia COMPARISON: Chest x-ray 05/19/2022, chest CT 07/05/2021 TECHNIQUE: Frontal view of the chest was obtained. FINDINGS: Diffusely increased reticular markings within both lungs redemonstrated consistent with known interstitial lung disease. Slightly increased patchy opacities in the right mid and lower lung since prior. Left costophrenic angles indistinct, unchanged and equivocal for small pleural effusion. No definite right pleural effusion. No pneumothorax. Unchanged cardiomediastinal silhouette. Left shoulder joint osteoarthritis. No acute osseous injury. XR/XR chest 1V IMPRESSION: 1.? Slightly increased patchy airspace opacities in the right mid and lower lung since prior. Findings could represent a developing pneumonia or pneumonitis. 2.? Otherwise, similar appearance of diffusely increased reticular markings throughout both lungs consistent with interstitial lung disease. ? <CHRIS Loco Last Filed: 05/23/22 03:46> Independent Historian Clinical information obtained from an independent historian. History obtained from or confirmed by: Other (Daughter) <Nancy Barraza NP - Last Filed: 05/23/22 03:46> External Record Review External record reviewed: Inpatient record, Outpatient record and Prior outpatient labs <CHRIS Loco Last Filed: 05/23/22 03:46> Discharge Plan Discharge Clinical Impression: COPD (chronic obstructive pulmonary disease), Community acquired pneumonia, Hypoxia <MAYA Herman - Last Filed: 06/04/22 09:14> Patient Disposition: Admitted As Inpatient <MAYA Herman - Last Filed: 06/04/22 09:14> Interventions: Admission Worksheet (ED) Last Done: 05/23/22 20:19 <MAYA Herman - Last Filed: 06/04/22 09:14> Discharge Date/Time: 05/23/22 20:19 <MAYA Herman - Last Filed: 06/04/22 09:14>
[2022-05-22 17:53] LABS: MANUAL DIFF FLAG NO
[2022-05-22 17:55] LABS: Basophils Percent Auto 0.3 % (0-2); Hematocrit 38.4 % (37.0-47.0); Hemoglobin 12.4 g/dl (12.0-16.0); Imm Gran Abs Auto 0.62 X10*3/uL (0.00-0.03); Imm Gran Pct Auto 3.9 % (0.0-0.4); Lymphocytes Absolute Auto 0.8 X10*3/uL (1.2-4.9); Lymphocytes Percent Auto 5.2 % (20-40); Mean Corpuscular HGB Conc 32.3 g/dl (31.0-35.0); Mean Corpuscular Hemoglobin 31.4 pg (27.0-33.0); Mean Corpuscular Volume 97.2 fL (80.0-98.0); Mean Platelet Volume 9.4 fL (9.4-12.3); Monocytes Absolute Auto 0.3 X10*3/uL (0.1-1.2); Monocytes Percent Auto 1.8 % (2-11); NRBC Pct Auto 0.2 /100WBC (0.0-0.2); Neutrophils Absolute Auto 14.1 x10*3/uL (2.0-8.3); Neutrophils Percent Auto 88.8 % (45-73); Platelet Count 231 X10*3/uL (160-400); Red Blood Count 3.95 X10*6/uL (4.20-5.50); Red Cell Distribution Width 13.1 % (11.0-16.0); White Blood Count 15.9 X10*3/uL (4.8-10.8)
--- NOTE | 2022-05-22 18:00 | PC.NURSE ---
Increasing difficulty breathing, prn oxygen at home pt daughter reports constant usage over last couple days. Today 3L pt 02 was 86%. Respiratory at bedside to set up high flow oxygen. IV established, labs drawn and sent.
[2022-05-22 18:03] LABS: INTERNATIONAL NORM RATIO 1.1 (0.9-1.1)
[2022-05-22 18:09] LABS: Partial Thromboplastin Time 23.2 SEC (26.0-36.4)
[2022-05-22 18:11] LABS: Alanine Aminotransferase 17 U/L (0-31); Albumin Level 3.6 g/dL (3.5-5.0); Alkaline Phosphatase 95 U/L (39-117); Anion Gap 16 (12-20); Aspartate Amino Transferase 19 U/L (5-31); Bilirubin Total 0.6 mg/dL (0.0-1.0); Blood Urea Nitrogen 20 mg/dL (9-16); Calcium 9.6 mg/dL (8.4-10.2); Carbon Dioxide 23 mmol/L (22-29); Chloride 106 mmol/L (96-108); Creatinine Clr Calc Pharmacy 42.8; Estimated Glomerular Filt Rate 53; Glucose Random 241 mg/dL (60-115); Sodium 141 mmol/L (135-145); Total Protein 7.2 g/dL (6.5-8.0)
[2022-05-22 18:12] LABS: Lactic Acid 3.5 mmol/L (0.5-2.0)
[2022-05-22 18:18] LABS: B Type Natriuretic Peptide 223 pg/mL (<100)
[2022-05-22 19:27] LABS: Influenza A PCR NEGATIVE (Negative); Influenza B PCR NEGATIVE (Negative); Resp Syncy Virus RNA Qual PCR NEGATIVE (Negative); SARS COV2 PCR INHOUSE NEGATIVE (Negative)
--- NOTE | 2022-05-22 20:30 | PC.NURSE ---
Antibiotics infusing, daughter remains at bedside
[2022-05-22 20:35] LABS: ~Lactic Acid-LAB USE ONLY 3.7 mmol/L (0.5-2.0)
--- NOTE | 2022-05-22 20:57 | PC.NURSE ---
Assumed care of patient. patient resting quietly no respiratory distress, able to speak in full sentences
--- NOTE | 2022-05-22 21:28 | PHA.MEDREC ---
Pharmacy Consult ? Medication Reconciliation Pharmacy has completed the medication reconciliation. Pt's daughter at bedside interpreting, but pt able to understand my questions on her own. Clarified dosing of sertraline. Daughter had cefuroxime and azithromycin at bedside, with 5.5 days and 1 day left respectively. She also noted that she thinks she is supposed to taper down on her prednisone starting tomorrow.
--- NOTE | 2022-05-22 22:09 | PM.IMHP ---
History of Present Illness Date of Service: 05/22/22 Chief Complaint: Shortness of breath 72-year-old female who is mostly [place]-speaking, history is obtained with the help of her daughter at bedside, with past medical history of COPD, pulmonary fibrosis mild dementia, GERD, as well as depression presents to the hospital with complaints of shortness of breath with increased oxygen requirement. Patient is on chronic oxygen 2 L at home, but they had to increase it to 3 L maximum but still had difficulty breathing. Patient's daughter noted low oxygen on her oximetry of 40%. Patient reports feeling feverish, having chills, increased weakness, cough, chest tightness, and some sputum production. She has also had diarrhea that has now resolved, patient reports no lower extremity edema. No orthopnea or PND. On arrival to the ED patient found to be hypoxic 86% on 3 L of oxygen, respiratory rate of 30 Labs are significant for WBC count of 14, hemoglobin of 11.3, venous blood pH of 7.45 with no CO2 retention, lactic acid of 3.5, proved will BNP of 223 Viral serology negative Chest x-ray shows increased patchy airspace opacities in the right mid and lower lung, finding could represent pneumonia Review of Systems Review of Systems: Yes all other systems are reviewed and are negative [facility] Medical History COPD (chronic obstructive pulmonary disease) Cough Dementia Exercise hypoxemia Hypoxemia Pulmonary fibrosis Restrictive lung disease Sigmoid diverticulitis Surgical History H/O: hysterectomy History of bilateral hip replacements History of cholecystectomy Social History Household Members: Spouse Housing: House Do you presently have visiting nurse or other home services: No Alcohol intake: never Second Hand Smoke Exposure: No Advance Directives: No Advance Directives Information Provided: No service: No Current occupational status: retired Meds Allergies Allergy/AdvReac Type Severity Reaction Status Date / Time latex [LATEX] Allergy Intermediate RASH Verified 04/25/22 16:17 Active Medications: Current Medications Azithromycin (Azithromycin 500 Mg Tablet) 500 mg PO Q24H AGUILAR Ceftriaxone Sodium 1 gm/ (Sodium Chloride) 50 mls @ 100 mls/hr IV Q24H [facility] Home Medications Medication Instructions Recorded Confirmed Last Taken Type montelukast 10 mg tablet 10 mg PO DAILY 05/12/20 05/22/22 05/22/22 History famotidine 40 mg tablet 40 mg PO DAILY PRN Acid Reflux 09/08/20 05/22/22 Unknown History donepezil 5 mg tablet 5 mg PO BEDTIME 04/25/22 05/22/22 05/21/22 History sertraline 50 mg tablet 50 mg PO DAILY 04/25/22 05/22/22 05/22/22 History cefuroxime axetil 250 mg tablet 1 tab PO BID 05/22/22 05/22/22 05/22/22 History codeine 10 mg-guaifenesin 100 mg/5 5 ml PO BID PRN Cough 05/22/22 05/22/22 Unknown History mL oral liquid Physical Exam Vital Signs and Narrative: Vital Signs: Last Vital Signs Temp 98.7 F 05/22/22 19:50 Pulse 85 05/22/22 21:08 Resp 21 H 05/22/22 21:08 BP 139/73 05/22/22 21:08 Pulse Ox 95 05/22/22 21:08 O2 Del Method 05/22/22 21:08 O2 Flow Rate 40 05/22/22 21:08 FiO2 50 05/22/22 17:53 Oxygen Flow Rate 3 05/22/22 17:27 BMI result Body Mass Index 29.7 Const: General: cooperative and no acute distress Orientation/consciousness: patient oriented x3 Eyes: General: appearance normal, both eyes and all related structures Resp: Other: Diminished breath sounds Effort & Inspection: normal respiratory effort Cardio: Rate: regular rate Rhythm: regular rhythm GI: Palpation (GI): Soft to palpation Auscultation: normal bowel sounds Skin: General skin exam: no rashes or lesions noted Neuro: General: patient oriented x3 Cognition (Neuro): normal cognition Extrem: General: Yes normal to inspection and Yes no pedal edema Results Labs CBC and Chem 7: 05/22/22 17:46 05/22/22 17:46 Labs: Laboratory Results - last 24 hr 05/22/22 05/22/22 05/22/22 17:46 17:46 17:46 MCV 97.2 MCH 31.4 MCHC 32.3 RDW 13.1 Plt Count 231 MPV 9.4 Immature Gran % (Auto) 3.9 H Neut % (Auto) 88.8 H Lymph % (Auto) 5.2 L [place] % (Auto) 1.8 L Eos % (Auto) 0.0 Baso % (Auto) 0.3 Lymph # (Auto) 0.8 L [place] # (Auto) 0.3 Eos # (Auto) 0.0 Baso # (Auto) 0.0 Abs Immat Gran (auto) 0.62 H Absolute Neuts (auto) 14.1 H Absolute Nucleated RBC 0.030 H Nucleated RBC % (auto) 0.2 PT 13.0 INR 1.1 APTT 23.2 L VBG pH VBG pCO2 VBG pO2 VBG HCO3 VBG O2 Saturation VBG Base Excess Anion Gap 16 Estim Creat Clear Calc 42.8 Estimated GFR 53 Random Glucose 241 H Lactic Acid Lactic Acid F/U @ 2Hr Calcium 9.6 Total Bilirubin 0.6 AST 19 ALT 17 Alkaline Phosphatase 95 Troponin I High Sens B-Natriuretic Peptide Total Protein 7.2 Albumin 3.6 Influenza Type A (PCR) Influenza Type B (PCR) RSV RNA Qual (PCR) SARS-CoV-2 RNA (RT-PCR) 05/22/22 05/22/22 05/22/22 17:46 17:46 17:46 MCV MCH MCHC RDW Plt Count MPV Immature Gran % (Auto) Neut % (Auto) Lymph % (Auto) [place] % (Auto) Eos % (Auto) Baso % (Auto) Lymph # (Auto) [place] # (Auto) Eos # (Auto) Baso # (Auto) Abs Immat Gran (auto) Absolute Neuts (auto) Absolute Nucleated RBC Nucleated RBC % (auto) PT INR APTT VBG pH VBG pCO2 VBG pO2 VBG HCO3 VBG O2 Saturation VBG Base Excess Anion Gap Estim Creat Clear Calc Estimated GFR Random Glucose Lactic Acid 3.5 H* Lactic Acid F/U @ 2Hr Calcium Total Bilirubin AST ALT Alkaline Phosphatase Troponin I High Sens 12.0 D B-Natriuretic Peptide Total Protein Albumin Influenza Type A (PCR) NEGATIVE Influenza Type B (PCR) NEGATIVE RSV RNA Qual (PCR) NEGATIVE SARS-CoV-2 RNA (RT-PCR) NEGATIVE 05/22/22 05/22/22 05/22/22 17:46 17:52 20:13 MCV MCH MCHC RDW Plt Count MPV Immature Gran % (Auto) Neut % (Auto) Lymph % (Auto) [place] % (Auto) Eos % (Auto) Baso % (Auto) Lymph # (Auto) [place] # (Auto) Eos # (Auto) Baso # (Auto) Abs Immat Gran (auto) Absolute Neuts (auto) Absolute Nucleated RBC Nucleated RBC % (auto) PT INR APTT VBG pH 7.45 H VBG pCO2 29 VBG pO2 59 VBG HCO3 21 L VBG O2 Saturation 86.0 VBG Base Excess -1.7 Anion Gap Estim Creat Clear Calc Estimated GFR Random Glucose Lactic Acid Lactic Acid F/U @ 2Hr 3.7 H* Calcium Total Bilirubin AST ALT Alkaline Phosphatase Troponin I High Sens B-Natriuretic Peptide 223 H Total Protein Albumin Influenza Type A (PCR) Influenza Type B (PCR) RSV RNA Qual (PCR) SARS-CoV-2 RNA (RT-PCR) Imaging Radiologist's Impressions: Impressions Chest X-Ray 05/22/22 17:53 IMPRESSION: 1. Slightly increased patchy airspace opacities in the right mid and lower lung since prior. Findings could represent a developing pneumonia or pneumonitis. 2. Otherwise, similar appearance of diffusely increased reticular markings throughout both lungs consistent with interstitial lung disease. Assessment and Plan (1) Community acquired pneumonia: Status: Acute (2) Acute and chronic respiratory failure with hypoxia: Status: Acute (3) COPD exacerbation: Status: Acute Plan 72-year-old female past medical history of COPD, pulmonary fibrosis presents to the hospital with complaints of cough, increased weakness, found to have acute pneumonia # community-acquired - viral versus bacterial - viral serology negative - has leukocytosis, hypoxia as well as elevated lactic acid - will treat with IV antibiotics - follow cultures # acute COPD exacerbation - decrease cough, dyspne, sputum production - will treat with Solu-Medrol, DuoNeb p.r.n. as well as scheduled # acute on chronic hypoxic respiratory failure - Secondary to above - on baseline 2 L of oxygen - continue oxygen supplement as tolerated - titrate oxygen down to and O2 of 88--92% given underlying COPD # dementia - mild - continue donepezil # depression - continued sertraline DVT prophylaxis: Lovenox Given acute hypoxic respiratory failure requiring increased oxygen patient will require minimum 2 night hospital stay for further management and monitoring Time Spent With Patient Time: Total time managing care of this patient today ____ minutes. Quality Stroke Does the patient have a stroke diagnosis?: No VTE Prior VTE?: No VTE Risk Level:: Medical - moderate - high VTE Device Contraindication: Treatment Not Indicated VTE Drug Contraindication: N/A - Med Ordered
[2022-05-22 23:21] LABS: ~Lactic Acid-LAB USE ONLY 2.7 mmol/L (0.5-2.0)
[2022-05-23] VITALS (18 sets, daily range): BP systolic 124–189; BP diastolic 65–94; PULSE 71–120; RESP 16–34; TEMP 36.2–37.1; O2SAT 91–98; BMI 29.7
[2022-05-23] MEDS: Enoxaparin Sodium 40 MG/0.4 ML SYRINGE SUBCUT ×2 (00:35→22:42)
--- NOTE | 2022-05-23 01:21 | PC.NURSE ---
Pt resting quietly no needs expressed at this time.
--- NOTE | 2022-05-23 03:06 | PC.NURSE ---
This freelance copywriter assumed care of this PT at this time.
[2022-05-23] MEDS: Albuterol/Iprat 2.5/0.5MG 3 ML AMPUL.NEB INHALE ×6 (04:01→23:06)
[2022-05-23] MEDS: Acetaminophen 325 MG TABLET 650 MG PO (04:47)
--- NOTE | 2022-05-23 04:55 | PC.NURSE ---
PT A&Ox3, reports 5/10 headache and chest discomfort r/t cough. BP noted to be in the 180s over 90s. Provider notified, waiting for new orders. Daughter at bedside.
[2022-05-23] MEDS: methylPREDNISolone Sod Succ 40 MG/ML VIAL IVPUSH (05:51)
[2022-05-23] MEDS: hydrALAZINE HCl 20 MG/ML VIAL 5 MG IVPUSH (05:53)
--- NOTE | 2022-05-23 06:00 | PC.NURSE ---
Addendum entered by Roma Posadas 05/23/22 06:13: PT continues on High flow oxygen. No apparent distress. Original Note: meds given as documented.
[2022-05-23 06:37] LABS: Hematocrit 33.9 % (37.0-47.0); Hemoglobin 11.3 g/dl (12.0-16.0); Mean Corpuscular HGB Conc 33.3 g/dl (31.0-35.0); Mean Platelet Volume 9.7 fL (9.4-12.3); NRBC Pct Auto 0.1 /100WBC (0.0-0.2); Platelet Count 231 X10*3/uL (160-400); Red Blood Count 3.53 X10*6/uL (4.20-5.50); Red Cell Distribution Width 13.2 % (11.0-16.0)
[2022-05-23 06:53] LABS: Anion Gap 14 (12-20); Blood Urea Nitrogen 18 mg/dL (9-16); Calcium 9.1 mg/dL (8.4-10.2); Carbon Dioxide 22 mmol/L (22-29); Chloride 109 mmol/L (96-108); Creatinine Clr Calc Pharmacy 49.5; Estimated Glomerular Filt Rate > 60; Glucose Random 214 mg/dL (60-115); Sodium 141 mmol/L (135-145)
[2022-05-23 07:18] LABS: Band Neutrophils Percent 4 % (3-5); Lymphocytes Absolute Manual 0.7 X10*3/uL (1.2-4.9); Lymphocytes Percent Manual 5 % (20-40); Metamyelocytes Absolute 0.1 X10*3/uL; Metamyelocytes Percent 1 %; Monocytes Absolute Manual 0.3 X10*3/uL (0.1-1.2); Monocytes Percent Manual 2 % (2-11); Neutrophils Absolute Manual 12.9 X10*3/uL (2.0-8.3); Neutrophils Percent Manual 88 % (45-73)
[2022-05-23 07:20] LABS: Macrocytosis 1+ (5-14) /OIF; Polychromasia 1+ (0-2) /OIF; RBC Morphology NOTED; Tear Drop Cells 1+ (0-2) /OIF
[2022-05-23 07:21] LABS: Platelet Estimate NORMAL (NORMAL); Platelet Morphology Comment NORMAL
[2022-05-23] MEDS: Lactated Ringers 1,000 ML 100 ML IVCONT ×2 (08:47→17:46)
[2022-05-23] MEDS: Sertraline HCL 50 MG TABLET PO (08:48)
[2022-05-23] MEDS: Montelukast Sodium 10 MG TABLET PO (08:48)
--- NOTE | 2022-05-23 08:51 | PC.NURSE ---
Pt resting quietly on stretcher, attempted to titrate off high flw as irritant to pt however RT attempted to reduced 02 amt and sat down to 77%. Pt placed back on initial settings and improvement noted. Sinus tach on tele with acitivity and coughing. Tachypneic. Hi gh flow on 68% at 50lpm, sat 95%. LR started at 100ml/hr. Fmily at bedside. Skin pwd.
[2022-05-23] MEDS: guaiFEN/Codeine SF 200/20/10ML 10 ML LIQUID 5 ML PO ×2 (08:57→22:42)
[2022-05-23] MEDS: methylPREDNISolone Sod Succ 125 MG/2 ML VIAL 60 MG IVPUSH ×3 (12:05→23:28)
--- NOTE | 2022-05-23 15:11 | MHC.CM.PN ---
Met with patient and granddaughter, Marianela in regards to discharge planning. Patient is primarily Rwandan speaking. Marianela speaks Divehi and Rwandan. Patient declining help of activities leader at this time. Patient lives with her , ambulates independently and is active with [employer] for oxygen. PCP verified. Patient denies having a HCP. Information provided. Patient not interested in completing one at this time. Patient received 3 Moderna vaccines. IMM explained and signed. Patient's family will transport patient home when medically stable. Continue to monitor for d/c needs.
--- NOTE | 2022-05-23 15:35 | HO.PM.IMPN ---
Subjective Subjective Date of Service: 05/23/22 Interval History: Admitted overnight for pneumonia with asthma exacerbation. Still remains very short of breath. All information through daughter Review of Systems Denies chest pain Admits to shortness of breath with minimal movement/at rest Denies nausea vomiting diarrhea Physical Exam Vital Signs: Vital Signs: Last Vital Signs Temp 97.2 F 05/23/22 12:43 Pulse 79 05/23/22 12:43 Resp 20 05/23/22 14:59 BP 163/94 H 05/23/22 12:43 Pulse Ox 98 05/23/22 12:43 O2 Del Method 05/23/22 12:43 O2 Flow Rate 50 05/23/22 06:57 FiO2 50 05/23/22 12:43 Oxygen Flow Rate 3 05/22/22 17:27 BMI result Body Mass Index 29.7 Const: Other: Comfortable able to speak in short sentences Resp: Other: Diminished at bases with dense expiratory wheezes throughout Cardio: Other: No S4; positive S1-S2; no S3 murmurs rubs or gallops GI: Other: Soft nontender nondistended normoactive bowel sounds Extrem: Other: No edema bilateral Objective Data Active Medications Acetaminophen (Acetaminophen 325 Mg Tablet) 650 mg PO Q6H PRN PRN Reason: Pain, Mild (Pain Scale 1-3) Last Admin: 05/23/22 04:47 Dose: 650 mg Documented By: WASHINGTON Albuterol/Ipratropium (Albuterol/Iprat 2.5/0.5mg 3 Ml Ampul.Neb) 3 ml INHALE RQ4H PRN PRN Reason: Shortness of Breath/Wheezing Last Admin: 05/23/22 04:01 Dose: 3 ml Documented By: MARCE Albuterol/Ipratropium (Albuterol/Iprat 2.5/0.5mg 3 Ml Ampul.Neb) 3 ml INHALE RQ4H WHILE AWAKE [facility] Last Admin: 05/23/22 14:59 Dose: 3 ml Documented By: ALIA Azithromycin (Azithromycin 500 Mg Tablet) 500 mg PO Q24H [facility] Benzonatate (Benzonatate 100 Mg Capsule) 200 mg PO TID PRN PRN Reason: for cough Docusate Sodium (Docusate Sodium 100 Mg Capsule) 100 mg PO DAILY PRN PRN Reason: Constipation Donepezil HCl (Donepezil Hcl 5 Mg Tablet) 5 mg PO BEDTIME [facility] Enoxaparin Sodium (Enoxaparin Sodium 40 Mg/0.4 Ml Syringe) 40 mg SUBCUT Q24H [facility] Last Admin: 05/23/22 00:35 Dose: 40 mg Documented By: SHASHANK Famotidine (Famotidine 20 Mg Tablet) 40 mg PO DAILY PRN PRN Reason: Acid Reflux Fluticasone/Vilanterol (Fluticasone/Vilanterol 100/25 Blst.W.Dev) 1 puff INHALE RDAILY [facility] Guaifenesin/Codeine Phosphate (Guaifen/Codeine Sf 200/20/10ml 10 Ml Liquid) 5 ml PO BID PRN PRN Reason: Cough Last Admin: 05/23/22 08:57 Dose: 5 ml Documented By: SABINE Ceftriaxone Sodium 1 gm/ (Sodium Chloride) 50 mls @ 100 mls/hr IV Q24H [facility] Lactated Ringer's (Lr) 1,000 mls @ 100 mls/hr IVCONT .Q10H [facility] Last Admin: 05/23/22 08:47 Dose: 100 mls/hr Documented By: SABINE Methylprednisolone Sodium Succinate (Methylprednisolone Sod Succ 125 Mg/2 Ml Vial) 60 mg IVPUSH Q6H [facility] Last Admin: 05/23/22 12:05 Dose: 60 mg Documented By: JULITA Montelukast Sodium (Montelukast Sodium 10 Mg Tablet) 10 mg PO DAILY [facility] Last Admin: 05/23/22 08:48 Dose: 10 mg Documented By: SABINE Ondansetron HCl (Ondansetron Hcl 4 Mg/2 Ml Vial) 4 mg IVPUSH Q8H PRN PRN Reason: Nausea and Vomiting Last Admin: 05/23/22 04:48 Dose: 4 mg Documented By: SERRKSENIA Sertraline HCl (Sertraline Hcl 50 Mg Tablet) 50 mg PO DAILY [facility] Last Admin: 05/23/22 08:48 Dose: 50 mg Documented By: SABINE Sodium Chloride (0.9 % Sodium Chloride Flush 3 Ml Syringe) 3 ml IVFLUSH QSHIFT [facility] Last Admin: 05/23/22 08:48 Dose: 3 ml Documented By: SABINE Labs CBC & Chem 7: 05/23/22 06:04 05/23/22 06:04 Labs: Laboratory Results - last 24 hr 05/22/22 05/22/22 05/22/22 17:46 17:46 17:46 MCV 97.2 MCH 31.4 MCHC 32.3 RDW 13.1 Plt Count 231 MPV 9.4 Immature Gran % (Auto) 3.9 H Neut % (Auto) 88.8 H Lymph % (Auto) 5.2 L Glasscock % (Auto) 1.8 L Eos % (Auto) 0.0 Baso % (Auto) 0.3 Lymph # (Auto) 0.8 L Glasscock # (Auto) 0.3 Eos # (Auto) 0.0 Baso # (Auto) 0.0 Abs Immat Gran (auto) 0.62 H Absolute Neuts (auto) 14.1 H Absolute Nucleated RBC 0.030 H Nucleated RBC % (auto) 0.2 Neutrophils % (Manual) Band Neutrophils % Lymphocytes % (Manual) Monocytes % (Manual) Metamyelocytes % Abs Neuts (Manual) Lymphocytes # (Manual) Monocytes # (Manual) Metamyelocytes # Platelet Estimate Plt Morphology Comment RBC Morphology Polychromasia Macrocytosis Tear Drop Cells PT 13.0 INR 1.1 APTT 23.2 L VBG pH VBG pCO2 VBG pO2 VBG HCO3 VBG O2 Saturation VBG Base Excess Anion Gap 16 Estim Creat Clear Calc 42.8 Estimated GFR 53 Random Glucose 241 H Lactic Acid Lactic Acid F/U @ 2Hr Lactic Acid F/U @ 4Hr Calcium 9.6 Total Bilirubin 0.6 AST 19 ALT 17 Alkaline Phosphatase 95 Troponin I High Sens B-Natriuretic Peptide Total Protein 7.2 Albumin 3.6 Influenza Type A (PCR) Influenza Type B (PCR) RSV RNA Qual (PCR) SARS-CoV-2 RNA (RT-PCR) 05/22/22 05/22/22 05/22/22 17:46 17:46 17:46 MCV MCH MCHC RDW Plt Count MPV Immature Gran % (Auto) Neut % (Auto) Lymph % (Auto) Glasscock % (Auto) Eos % (Auto) Baso % (Auto) Lymph # (Auto) Glasscock # (Auto) Eos # (Auto) Baso # (Auto) Abs Immat Gran (auto) Absolute Neuts (auto) Absolute Nucleated RBC Nucleated RBC % (auto) Neutrophils % (Manual) Band Neutrophils % Lymphocytes % (Manual) Monocytes % (Manual) Metamyelocytes % Abs Neuts (Manual) Lymphocytes # (Manual) Monocytes # (Manual) Metamyelocytes # Platelet Estimate Plt Morphology Comment RBC Morphology Polychromasia Macrocytosis Tear Drop Cells PT INR APTT VBG pH VBG pCO2 VBG pO2 VBG HCO3 VBG O2 Saturation VBG Base Excess Anion Gap Estim Creat Clear Calc Estimated GFR Random Glucose Lactic Acid 3.5 H* Lactic Acid F/U @ 2Hr Lactic Acid F/U @ 4Hr Calcium Total Bilirubin AST ALT Alkaline Phosphatase Troponin I High Sens 12.0 D B-Natriuretic Peptide Total Protein Albumin Influenza Type A (PCR) NEGATIVE Influenza Type B (PCR) NEGATIVE RSV RNA Qual (PCR) NEGATIVE SARS-CoV-2 RNA (RT-PCR) NEGATIVE 05/22/22 05/22/22 05/22/22 17:46 17:52 20:13 MCV MCH MCHC RDW Plt Count MPV Immature Gran % (Auto) Neut % (Auto) Lymph % (Auto) Glasscock % (Auto) Eos % (Auto) Baso % (Auto) Lymph # (Auto) Glasscock # (Auto) Eos # (Auto) Baso # (Auto) Abs Immat Gran (auto) Absolute Neuts (auto) Absolute Nucleated RBC Nucleated RBC % (auto) Neutrophils % (Manual) Band Neutrophils % Lymphocytes % (Manual) Monocytes % (Manual) Metamyelocytes % Abs Neuts (Manual) Lymphocytes # (Manual) Monocytes # (Manual) Metamyelocytes # Platelet Estimate Plt Morphology Comment RBC Morphology Polychromasia Macrocytosis Tear Drop Cells PT INR APTT VBG pH 7.45 H VBG pCO2 29 VBG pO2 59 VBG HCO3 21 L VBG O2 Saturation 86.0 VBG Base Excess -1.7 Anion Gap Estim Creat Clear Calc Estimated GFR Random Glucose Lactic Acid Lactic Acid F/U @ 2Hr 3.7 H* Lactic Acid F/U @ 4Hr Calcium Total Bilirubin AST ALT Alkaline Phosphatase Troponin I High Sens B-Natriuretic Peptide 223 H Total Protein Albumin Influenza Type A (PCR) Influenza Type B (PCR) RSV RNA Qual (PCR) SARS-CoV-2 RNA (RT-PCR) 05/22/22 05/23/22 05/23/22 22:29 06:04 06:04 MCV 96.0 MCH 32.0 MCHC 33.3 RDW 13.2 Plt Count 231 MPV 9.7 Immature Gran % (Auto) Cancelled Neut % (Auto) Cancelled Lymph % (Auto) Cancelled Glasscock % (Auto) Cancelled Eos % (Auto) Cancelled Baso % (Auto) Cancelled Lymph # (Auto) Cancelled Glasscock # (Auto) Cancelled Eos # (Auto) Cancelled Baso # (Auto) Cancelled Abs Immat Gran (auto) Cancelled Absolute Neuts (auto) Cancelled Absolute Nucleated RBC 0.020 H Nucleated RBC % (auto) 0.1 Neutrophils % (Manual) 88 H Band Neutrophils % 4 Lymphocytes % (Manual) 5 L Monocytes % (Manual) 2 Metamyelocytes % 1 Abs Neuts (Manual) 12.9 H Lymphocytes # (Manual) 0.7 L Monocytes # (Manual) 0.3 Metamyelocytes # 0.1 Platelet Estimate NORMAL Plt Morphology Comment NORMAL RBC Morphology NOTED Polychromasia 1+ (0-2) Macrocytosis 1+ (5-14) Tear Drop Cells 1+ (0-2) PT INR APTT VBG pH VBG pCO2 VBG pO2 VBG HCO3 VBG O2 Saturation VBG Base Excess Anion Gap 14 Estim Creat Clear Calc 49.5 Estimated GFR > 60 Random Glucose 214 H Lactic Acid Lactic Acid F/U @ 2Hr Lactic Acid F/U @ 4Hr 2.7 H* Calcium 9.1 Total Bilirubin AST ALT Alkaline Phosphatase Troponin I High Sens B-Natriuretic Peptide Total Protein Albumin Influenza Type A (PCR) Influenza Type B (PCR) RSV RNA Qual (PCR) SARS-CoV-2 RNA (RT-PCR) Assessment and Plan (1) Community acquired pneumonia: Status: Acute (2) Acute and chronic respiratory failure with hypoxia: Status: Acute (3) COPD exacerbation: Status: Acute Plan 72-year-old female past medical history of COPD, pulmonary fibrosis presents to the hospital with complaints of cough, increased weakness, found to have acute pneumonia 1.Community-acquired pneumonia with acute on chronic hypoxic respiratory failure - continue ceftriaxone/azithromycin -methylprednisolone 60 mg IV q.6 hours -schedule DuoNebs -titrate O2 to maintain sats greater or equal to 92 2.Dementia - mild; no acute behavioral issues - continue donepezil 3.Depression - continued sertraline Lovenox Full code Patient will require ongoing hospitalization for IV antibiotics/steroids to treat community-acquired pneumonia acute on chronic hypoxic respiratory failure Time Spent With Patient Time: Total time managing care of this patient today ____ minutes. Quality Stroke Does the patient have a stroke diagnosis?: No VTE Prior VTE?: No VTE Risk Level:: Medical - moderate - high VTE Device Contraindication: Treatment Not Indicated VTE Drug Contraindication: N/A - Med Ordered
[2022-05-23] MEDS: Donepezil HCl 5 MG TABLET PO (20:46)
[2022-05-23] MEDS: Azithromycin 500 MG TABLET PO (20:46)
[2022-05-23] MEDS: traZODone HCL 50 MG TABLET PO (23:28)
[2022-05-24] VITALS (33 sets, daily range): BP systolic 90–187; BP diastolic 48–105; PULSE 74–114; RESP 18–60; TEMP 36.6–37.1; O2SAT 89–95
[2022-05-24] MEDS: Lactated Ringers 1,000 ML 100 ML IVCONT (02:53)
--- NOTE | 2022-05-24 03:13 | PC.NURSE ---
pt come upt at 20:00, resting on bed w/wob RR35,complained did not sleep for 2 night. when pt coughs sat down to 70% with high flow and Tachypneic 144 called RT for the treatment. Hi flow's on sat 88%. afew time desat to 70s%. RT recommended non-breather mask w/15L, until sat is up to 88%. put it on the O2 sat monitor, given cough med. dr. Alamo notified. order trazodone. at this time pt resting on bed comfortably sat 91% RR22. continue monitoring O2 saturation.
[2022-05-24] MEDS: guaiFEN/Codeine SF 200/20/10ML 10 ML LIQUID 5 ML PO (05:37)
[2022-05-24] MEDS: methylPREDNISolone Sod Succ 125 MG/2 ML VIAL 60 MG IVPUSH ×2 (05:38→13:00)
--- NOTE | 2022-05-24 05:40 | PC.NURSE ---
pt slept about 3 hours. woke up with blood draw, start coughing. oxygen was 77%, waiting for the 4 min. to back up. did not goes up. given 15 L with non-breather mask. goes up to 85% to 86%. off the non-breather mask. stay with 85%. notified, given permission to give rubituson cough syrup at this time. pt states that feels better with cough medicine. granddaughter at the bedside. stable with 86%. continue to monitor O2 sat.
[2022-05-24 06:26] LABS: MANUAL DIFF FLAG NO
[2022-05-24 06:35] LABS: Basophils Percent Auto 0.2 % (0-2); Hematocrit 32.4 % (37.0-47.0); Hemoglobin 10.4 g/dl (12.0-16.0); Lymphocytes Absolute Auto 0.6 X10*3/uL (1.2-4.9); Lymphocytes Percent Auto 2.9 % (20-40); Mean Corpuscular HGB Conc 32.1 g/dl (31.0-35.0); Mean Corpuscular Hemoglobin 31.8 pg (27.0-33.0); Mean Corpuscular Volume 99.1 fL (80.0-98.0); Mean Platelet Volume 9.7 fL (9.4-12.3); Monocytes Absolute Auto 0.9 X10*3/uL (0.1-1.2); Monocytes Percent Auto 4.1 % (2-11); Neutrophils Absolute Auto 19.9 x10*3/uL (2.0-8.3); Neutrophils Percent Auto 88.8 % (45-73); Platelet Count 234 X10*3/uL (160-400); Red Blood Count 3.27 X10*6/uL (4.20-5.50); Red Cell Distribution Width 13.3 % (11.0-16.0); White Blood Count 22.4 X10*3/uL (4.8-10.8)
[2022-05-24 07:17] LABS: Alanine Aminotransferase 21 U/L (0-31); Albumin Level 3.1 g/dL (3.5-5.0); Alkaline Phosphatase 71 U/L (39-117); Anion Gap 13 (12-20); Aspartate Amino Transferase 23 U/L (5-31); Bilirubin Total 0.5 mg/dL (0.0-1.0); Blood Urea Nitrogen 14 mg/dL (9-16); Calcium 9.1 mg/dL (8.4-10.2); Carbon Dioxide 25 mmol/L (22-29); Chloride 109 mmol/L (96-108); Creatinine Clr Calc Pharmacy 52.4; Estimated Glomerular Filt Rate > 60; Glucose Fasting 146 mg/dL (60-99); Potassium 4.3 mmol/L (3.3-5.1); Sodium 143 mmol/L (135-145); Total Protein 6.1 g/dL (6.5-8.0)
[2022-05-24] MEDS: Albuterol/Iprat 2.5/0.5MG 3 ML AMPUL.NEB INHALE ×4 (07:36→19:08)
[2022-05-24] MEDS: Montelukast Sodium 10 MG TABLET PO (07:49)
[2022-05-24] MEDS: Sertraline HCL 50 MG TABLET PO (07:49)
[2022-05-24] MEDS: Furosemide 40 MG/4 ML VIAL IVPUSH (08:56)
[2022-05-24] MEDS: Piperacillin Sodium/Tazobactam 4.5 GM in 0.9 % Sodium Chloride 100 ML IV ×3 (08:56→20:26)
--- NOTE | 2022-05-24 09:22 | P.CDIC_ITS ---
CDI Concurrent Query Documentation Clarification: PHYSICIAN'S DOCUMENTATION REQUEST Date of Query: 05/24/22921 Patient Name: Vita Huynh Admit Date: 05/22/22 Dear Doctor, A review of the medical record indicates additional documentation may be needed. Please review below and update the documentation accordingly. Clinical Indicators: Risk Factors/Clinical Indicators/Treatments Patient reports feeling feverish, chills, weakness, cough and diarrhea. WBC 15.9/22.4 LA is elevated at 3.5 repeat at 10:46 increased to 3.7. HR 111 RR 28 IV Vancomycin, Zosyn, IV fluids, supplemental oxygen. Community acquired pneumonia viral vs. bacterial Please clarify which, if any, of the following is the most likely etiology of the above symptoms and treatment rendered: * Sepsis * Systemic manifestations of infection, with 2 or more SIRS criteria which include: - Fever > 100.4F or hypothermia < 96.8 F - Leukocytosis - WBC > 12,000 or leukopenia, WBC < 4,000 or > 10% bands - Tachycardia > 90 beats/minute - Tachypnea - RR > 20 breaths/minute or PaCO2 < 32mm * Indicate the known or suspected organism * Indicate the known or suspected underlying infection, such as UTI, pneumonia, or cellulitis * Indicate if a suspected bacterial infection of unknown source * Other (please specify) * Unable to determine Use of terms such as suspected, likely, concern for, or probable (associated with a specific diagnosis that is being evaluated, monitored, or treated as if it exists) are acceptable and can be coded in the inpatient setting, when documented at the time of discharge. Thank you, Kaylee Myrick [facility], CDIS Extension: [phone] Please use your independent medical judgment in providing your response. THIS QUERY IS PART OF THE PERMANENT MEDICAL RECORD Provider Response: Other Other Diagnosis: Unable to determine
[2022-05-24] MEDS: Nitroglycerin 2 % Oint 1 GM Packet 1 INCH TRANSDERMA (09:55)
[2022-05-24] MEDS: vancomycin HCL 1,000 MG, vancomycin HCL 750 MG in 0.9 % Sodium Chloride 500 ML 267.5 MG IV (10:22)
--- NOTE | 2022-05-24 10:40 | P.PNIM_ITS ---
Subjective Subjective Date of Service: 05/24/22 Interval History: Patient noted to be in distress this a.m.; saturating 84-86% on high-flow/non-rebreather. CXR consistent with worsening infiltrate. Started to fatigue. .. Placed on BiPAP Review of Systems Unable to obtain Physical Exam 2 Vital Signs: Vital Signs: Last Vital Signs Temp 98 F 05/24/22 09:56 Pulse 98 05/24/22 10:00 Resp 39 H 05/24/22 10:00 BP 138/86 05/24/22 10:00 Pulse Ox 93 05/24/22 09:56 O2 Del Method 05/24/22 10:00 O2 Flow Rate 15 05/23/22 20:15 FiO2 100 05/24/22 10:00 Oxygen Flow Rate 3 05/22/22 17:27 BMI result Body Mass Index 29.7 Const: Other: Tachypneic on high-flow/100% non-rebreather Resp: Other: Tachypneic; diminished at bases with diffuse coarse crackles throughout all feels worse right base Cardio: Other: No S4; positive S1-S2; no S3 murmurs rubs or gallops GI: Other: Soft nontender nondistended normoactive bowel sounds Extrem: Other: No edema bilateral Objective Data Active Medications Albuterol/Ipratropium (Albuterol/Iprat 2.5/0.5mg 3 Ml Ampul.Neb) 3 ml INHALE RQ4H WHILE AWAKE [facility] Last Admin: 05/24/22 07:36 Dose: 3 ml Documented By: ALIA Enoxaparin Sodium (Enoxaparin Sodium 40 Mg/0.4 Ml Syringe) 40 mg SUBCUT Q24H [facility] Last Admin: 05/23/22 22:42 Dose: 40 mg Documented By: YADI Piperacillin Sod/Tazobactam (Sod 4.5 gm/ Sodium Chloride) 100 mls @ 200 mls/hr IV Q6H [facility] Last Infusion: 05/24/22 09:38 Dose: 0 mls/hr Documented By: NASIR Methylprednisolone Sodium Succinate (Methylprednisolone Sod Succ 125 Mg/2 Ml Vial) 60 mg IVPUSH Q6H [facility] Last Admin: 05/24/22 05:38 Dose: 60 mg Documented By: YADI Ondansetron HCl (Ondansetron Hcl 4 Mg/2 Ml Vial) 4 mg IVPUSH Q8H PRN PRN Reason: Nausea and Vomiting Last Admin: 05/23/22 04:48 Dose: 4 mg Documented By: WASHINGTON Labs CBC & Chem 7: 05/24/22 05:22 05/24/22 05:22 Labs: Laboratory Results - last 24 hr 05/24/22 05/24/22 05:22 05:22 MCV 99.1 H MCH 31.8 MCHC 32.1 RDW 13.3 Plt Count 234 MPV 9.7 Immature Gran % (Auto) 4.0 H Neut % (Auto) 88.8 H Lymph % (Auto) 2.9 L Catron % (Auto) 4.1 Eos % (Auto) 0.0 Baso % (Auto) 0.2 Lymph # (Auto) 0.6 L Catron # (Auto) 0.9 Eos # (Auto) 0.0 Baso # (Auto) 0.0 Abs Immat Gran (auto) 0.90 H Absolute Neuts (auto) 19.9 H Absolute Nucleated RBC 0.000 Nucleated RBC % (auto) 0.0 Anion Gap 13 Estim Creat Clear Calc 52.4 Estimated GFR > 60 Fasting Glucose 146 H Calcium 9.1 Total Bilirubin 0.5 AST 23 ALT 21 Alkaline Phosphatase 71 D Total Protein 6.1 L Albumin 3.1 L Microbiology Microbiology Results: Microbiology 05/22/22 18:53 Blood Culture - Preliminary Blood - Venous No growth after 24 hours. 05/22/22 17:46 Blood Culture - Preliminary Blood - Venous No growth after 24 hours. Assessment and Plan (1) Community acquired pneumonia: Status: Acute (2) Acute and chronic respiratory failure with hypoxia: Status: Acute Plan 72-year-old female past medical history of COPD, pulmonary fibrosis presents to the hospital with complaints of cough, increased weakness, found to have acute pneumonia; worsening respiratory distress this a.m. requiring BiPAP 1.Community-acquired pneumonia with acute on chronic hypoxic respiratory failure - switched to vancomycin/Zosyn secondary to decompensation -BiPAP 10/5 100% -methylprednisolone 60 mg IV q.6 hours Discussed with ICU... To accept transfer 2.Dementia - mild; no acute behavioral issues - continue donepezil 3.Depression - continued sertraline Lovenox Full code Patient will require ongoing hospitalization for IV antibiotics/steroids to treat community-acquired pneumonia acute on chronic hypoxic respiratory failure Time Spent With Patient Time: Total time managing care of this patient today ____ minutes. Quality Stroke Does the patient have a stroke diagnosis?: No VTE Prior VTE?: No VTE Risk Level:: Medical - moderate - high VTE Device Contraindication: Treatment Not Indicated VTE Drug Contraindication: N/A - Med Ordered
[2022-05-24] MEDS: HYDROmorphone HCl 1 MG/ML SYRINGE IVPUSH ×2 (10:46→19:20)
[2022-05-24 11:14] LABS: Influenza A PCR NEGATIVE (Negative); Influenza B PCR NEGATIVE (Negative); Resp Syncy Virus RNA Qual PCR NEGATIVE (Negative); SARS COV2 PCR INHOUSE NEGATIVE (Negative)
[2022-05-24 11:20] LABS: B Type Natriuretic Peptide 304 pg/mL (<100)
--- NOTE | 2022-05-24 11:44 | W.PM.CCHP ---
Procedures Date of Service Date of Service: 05/24/22 Central Line Placement Left SC: Central Line Comments: PROCEDURE:? Insertion left supraclavicular subclavian central venous line. INDICATION:? Respiratory failure; for IV access, venous blood gasses. ANESTHESIA:? Local PROCEDURE:? Vascular ultrasound was used to examine the left side.? A large compressible subclavian vein was noted in the supraclavic fossa. The left subclavian and left neck areas were widely prepped and draped in full sterile fashion.? Local anesthesia was applied to the insertion site.? The left subclavian vein was cannulated in the supraclavicular fossa on the first pass of the 18 gauge thin wall.? The wire was threaded without incident.? A 7 Turkish by 16 cm triple-lumen catheter was advanced into the vein up to the hub via the Seldinger technique without incident.? There was good blood return x3.? The catheter was sutured x3 and a Biopatch and dry sterile dressing were applied. Postop chest x-ray showed the line in good position with no pneumothorax.? The patient tolerated the procedure well w no complications. Consent for Procedure: Elective - informed consent obtained
--- NOTE | 2022-05-24 11:49 | CA_ITS ---
Transthoracic Echocardiogram Patient (Last, First, Middle): Vita Huynh, Gender: Female Date of : 1950 Age: 72 Procedure Date: 05/24/2022 Procedure Type: Transthoracic Echocardiogram Location: ICU Height: 152.4 cm Weight: 68.49 kg BSA: 1.66 m2 Heart Rate: 72 bpm BP: 138 / 86 mmHg Copyman: VANE Referring MD: Marvel Hinds MD Photographer Aerial: Judson Cabello MD Symptoms: Acute hypoxemic resp failure Study Quality: Adequate ECG Rhythm: Sinus Conclusions: - 1. Normal LV systolic function with normal LVH with impaired relaxation filling pattern 2. Mild aortic stenosis 3. Mildly elevated right ventricular systolic pressure 4. No pericardial effusion Findings Left Ventricle Normal left ventricular size and systolic function. There is mildly increased left ventricular wall thickness. The visually estimated ejection fraction is between 60-65%. Spectral Doppler is indicative of an impaired relaxation filling pattern. E/E prime ratio is between 8 and 15 consistent with indeterminate filling pressures. Right Ventricle Normal right ventricular cavity size and systolic function. Atria The left atrium is likely dilated. There is lipomatous hypertrophy of the interatrial septum. Interatrial shunt cannot be excluded. The right atrium is normal in size. Aortic Valve The aortic valve was not well visualized. There is mild calcification of the aortic valve. There is mild aortic valve stenosis. The peak aortic gradient is 18 mmHg.The mean gradient is 8 mmHg. The aortic valve area is 1.79 cm2. There is no aortic valve regurgitation. Mitral Valve There is mild anterior and posterior mitral leaflet thickening. There is mild mitral annular calcification. There is mild mitral valve regurgitation. There is no mitral valve stenosis. Pulmonic Valve The pulmonic valve was not well visualized. Tricuspid Valve There is mild tricuspid valve regurgitation. Normal right atrial pressure. Mild pulmonary hypertension is present. Great Vessels All visible segments of the aorta are normal in size. The pulmonary artery was not well visualized. Venous The inferior vena cava is mildly dilated and collapses greater than 50% with inspiration. Pericardium/Pleural There is no evidence of pericardial effusion. Prior Study Comparison No prior study available for comparison. Measurements 2D Linear Measurements IVSd: 1.26 0.6-0.9/0.6-1.0 cm LVIDd: 4.89 3.9-5.3/4.2-5.9 cm LVIDd Index: 2.95 2.4-3.2/2.2-3.1 cm/m2 LVIDs: 2.91 2.0-3.6 cm LVPWd: 1.21 0.7-1.1 cm LA Diam: 4.00 2.7-3.8/3.0-4.0 cm LAIDs Index: 2.41 1.5-2.3 cm/m2 LV Mass: 293.03 67-162/88-224 g LV Mass Index: 176.52 43-95/49-115 g/m2 LVOT Diam: 2.00 3.0+(-)1.3 cm 2D Systolic Function EF 4C: 64.50 >55% EF 2C: 59.80 >55% EF BiP: 61.40 >55% Mitral Valve MV Pk E: 0.67 MV PK A: 1.21 MV Decel Time: 208.00 E/A: 0.60 E'Lateral: 5.77 E'Medial: 3.59 E/E' Med: 18.70 E/E' Lat: 11.70 PHT: 61.00 MVA PHT: 3.61 Decel [place]: 3.24 Aortic Valve AoV Pk Cesar: 2.11 AoV Mn Cesar: 1.26 AoV VTI: 0.43 AoV Pk Grad: 18.00 Aov Mn Grad: 8.00 DERRICK Cont.VTI: 1.79 LVOT LVOT Pk Cesar: 1.20 LVOT Mn Cesar: 0.76 LVOT VTI: 0.25 LVOT Pk Grad: 6.00 LVOT Mn Grad: 3.00 LVOT Diam: 2.00 LVOT Area: 3.14 Diastolic Function MV Pk E: 0.67 MV Pk A: 1.21 E/A: 0.60 E'Medial: 3.59 E/E' Med: 18.70 E' Laterial: 5.77 E/E' Lat: 11.70 Right Ventricle TAPSE (mm): 18.70 TVS' Cesar: 12.40 Tricuspid Valve TR Pk Cesar: 3.22 TR Pk Grad: 41.00 RA Press: 3.00 RVSP: 44.00 Great Vessels Aorta Sinus of Valsalva: 2.70 2.0-3.5 cm Ao Asc: 2.90 2.1-3.4 cm Pulmonary Valve PV Pk Cesar: 0.78 Peak PV Grad: 2.00 Updated in Other Vendor System with Status of Final Judson Cabello MD electronically signed on 05/24/2022 4:37:27 PM with status of Final
--- NOTE | 2022-05-24 12:16 | PHA.PROG ---
Admission Date/Time: May 22, 2022 22:04 Indication: Respiratory Infection Weight in k.94 kg Adjusted body weight in K.876 [place] body weight in K.5 Obesity Dosing Indication % IBW:25% Serum Creatinine - Last 168 Hours 05/22/22 05/23/22 05/24/22 17:46 06:04 05:22 Creatinine 1.03 0.89 0.84 Estimated CrCl and GFR - Last 168 Hours 05/22/22 05/23/22 05/24/22 17:46 06:04 05:22 Estim Creat Clear Calc 42.8 49.5 52.4 Estimated GFR 53 > 60 > 60 Vancomycin Loading dose: 1750MG Current Vancomycin Dosing Regimen:1000 MG Q24H Vancomycin Monitoring using AUC goal of 400 - 600 range with trough as surrogate marker: 415 MG/L/HR Date and Time for next Vancomycin Level to be drawn: 05/26 @0800 Pharmacist Comments on Vancomycin Plan: Patient is 72 which means best frequency would be Q24H to allow kidneys to clear. Patients renal function has improved at 0.84 from yesterday to 0.89. Patient received proper load. Vancomycin dosing will take advantage of NICE as a clinical decision support tool that uses Bayesian modeling to calculate individual patient's pharmacokinetic parameters and forecast the patient's drug concentration time course with the target goal AUC 24 range of 400 - 600 mg/L/hr.
[2022-05-24] MEDS: Norepinephrine Bitartrate/D5W 8 MG/250 ML PLAST..BAG 6.46 MG IV (12:57)
[2022-05-24 12:59] LABS: Venous Blood Gas Refer to POC result
[2022-05-24 13:00] LABS: VBG Base Excess 2.9 mmol/L; VBG HCO3 28 mmol/L (22-26); VBG pCO2 50 mmHg; VBG pH 7.36 (7.32-7.43); VBG pO2 65 mmHg
[2022-05-24 13:13] LABS: Lactic Acid 1.2 mmol/L (0.5-2.0)
--- NOTE | 2022-05-24 13:13 | PM.CCPN ---
Subjective Subjective Date of Service: 05/24/22 Interval History: Mrs. Huynh was transferred to the ICU this morning with resp distress and acute hypoxemic resp failure. The patient is a 72 yo F with PMHx of COPD, pulmonary fibrosis on 2L at home, mild dementia on Aricept, GERD, and depression.? She is a long time patient of Dr. Lazar. She was brought to ED by family on May 22 bec of SOB w increased oxygen requirement.? SpO2 at home was in the 40s.? The patient reported feeling feverish, having chills, increased weakness, cough, chest tightness, and some sputum production. On arrival to the ED, SpO2 was 86% on 3 L of oxygen, in mod resp distress.? Labs were notable for WBC count 14, hemoglobin 11, BUN/creat 20/1.0. VBG 7.45/29/-1. Lactic acid 3.5, BNP? 223.? Viral serologies all negative.? Chest x-ray showed diffusely increased reticular markings throughout both lungs consistent with interstitial lung disease, with very slightly increased patchy airspace opacities in the right mid and lower lung compared to a prior film of May 19. The patient was admitted to medicine with dx of underlying pulmonary fibrosis, acute CAP, viral vs bacterial, and poss COPD exacerbation.? She was given Abx, sterhoids, and BDs.? On HFNC 50L/50%, she was Sat?ing high 90s.? Late last night, oxygenation worsened and she was changed to NRB FM.? Steroids were bumped to 60mg q6hr.? This morning, SpO2 was even worse, and HFNC was added to NRB FM.? With Sat?s still low, a repeat CXR was worse, with more patchy opacification in the LLs.? She was switched to vanco and Zosyn, given Lasix, and tx to ICU for NIV. In ICU she was started on BiPAP.? A CVL was placed for access and monitoring (separate procedure).? The post procedure film showed even worse diffuse interstitial infiltrates and patchy LL opacities.? On my exam in the ICU, she was awake and appropriately responsive.? Surprisingly, she looked nonplussed, and essentially nontoxic. ?She just had mildly labored breathing.? On BiPAP 16/5/90%, RR was low 40s, Vt 450, Sat 93%.? No JVD at 30?.? Chest CTA.? RRR, normal-sounding S1 and S2, with no murmur or gallops.? Abdomen was benign.? She had trivial edema. LABORATORY DATA ON: Below.? Notably, white count this morning was bumped to 22 open (? 2? steroids).? BUN/creatinine still low 14/0.8.? BNP 304, albumin 3.1.? At noon time, lactic acid was 1.2.? PCT 0.06.? We gave her Dilaudid 1 mg which slowed her respiratory rate to the mid to high 30s, and her tidal volume increased slightly to about 500 cc. ?CVBG showed 7.36/50/+2.? My bedside echo:? Normal LV and RV size and fxn.? Noticeably dilated LA.? No AI, trace MR, 2+ TR, CWD jet 2.5 m/sec, IVC 1.3-1.6 cm w good insp collapse. IMPRESSION: 1. Underlying Interstitial lung disease.? Chest x-rays are considerably worse compared to her last film of January,.? Discussed with Dr. Lazar.? He recommended Solu-Medrol 80 mg Q8, and possibly more if necessary.? If she?s not better by tomorrow, consider pulse x 3 days. 2. Acute hypoxemic resp failure.? 2? above. 3. ? CAP.? I?m doubtful that she has a bacterial lung infection.? If she did, she?d be much sicker and likely intubated.? I doubt vancomycin is warranted, and pretty much the same thing for the Zolexien.? The main thing she needs is steroids.? But I?ve asked Dr. Hernandez to weigh in.? For now, continuing both. Prognosis is very guarded, and depends on her response to steroids. Critical care time (including extended chart rev, d/w family; excluding procedures):? 100+ min. Critical Care Time (minutes): 100 Physical Exam Vital Signs: Vital Signs: Last Vital Signs Temp 98 F 05/24/22 09:56 Pulse 97 05/24/22 10:59 Resp 30 H 05/24/22 11:00 BP 138/86 05/24/22 10:00 Pulse Ox 93 05/24/22 09:56 O2 Del Method 05/24/22 10:00 O2 Flow Rate 15 05/23/22 20:15 FiO2 100 05/24/22 10:00 Oxygen Flow Rate 3 05/22/22 17:27 BMI result Body Mass Index 29.7 Objective Data Labs CBC & Chem 7: 05/24/22 05:22 05/24/22 05:22 Labs: Laboratory Results - last 24 hr 05/24/22 05/24/22 05/24/22 05:22 05:22 05:22 WBC 22.4 H RBC 3.27 L Hgb 10.4 L Hct 32.4 L MCV 99.1 H MCH 31.8 MCHC 32.1 RDW 13.3 Plt Count 234 MPV 9.7 Immature Gran % (Auto) 4.0 H Neut % (Auto) 88.8 H Lymph % (Auto) 2.9 L [place] % (Auto) 4.1 Eos % (Auto) 0.0 Baso % (Auto) 0.2 Lymph # (Auto) 0.6 L [place] # (Auto) 0.9 Eos # (Auto) 0.0 Baso # (Auto) 0.0 Abs Immat Gran (auto) 0.90 H Absolute Neuts (auto) 19.9 H Absolute Nucleated RBC 0.000 Nucleated RBC % (auto) 0.0 VBG pH VBG pCO2 VBG pO2 VBG HCO3 VBG O2 Saturation VBG Base Excess Sodium 143 Potassium 4.3 Chloride 109 H Carbon Dioxide 25 Anion Gap 13 BUN 14 Creatinine 0.84 Estim Creat Clear Calc 52.4 Estimated GFR > 60 Fasting Glucose 146 H Calcium 9.1 Total Bilirubin 0.5 AST 23 ALT 21 Alkaline Phosphatase 71 D B-Natriuretic Peptide 304 H Total Protein 6.1 L Albumin 3.1 L Influenza Type A (PCR) Influenza Type B (PCR) RSV RNA Qual (PCR) SARS-CoV-2 RNA (RT-PCR) 05/24/22 05/24/22 10:27 12:55 WBC RBC Hgb Hct MCV MCH MCHC RDW Plt Count MPV Immature Gran % (Auto) Neut % (Auto) Lymph % (Auto) [place] % (Auto) Eos % (Auto) Baso % (Auto) Lymph # (Auto) [place] # (Auto) Eos # (Auto) Baso # (Auto) Abs Immat Gran (auto) Absolute Neuts (auto) Absolute Nucleated RBC Nucleated RBC % (auto) VBG pH 7.36 VBG pCO2 50 VBG pO2 65 VBG HCO3 28 H VBG O2 Saturation 89.0 VBG Base Excess 2.9 Sodium Potassium Chloride Carbon Dioxide Anion Gap BUN Creatinine Estim Creat Clear Calc Estimated GFR Fasting Glucose Calcium Total Bilirubin AST ALT Alkaline Phosphatase B-Natriuretic Peptide Total Protein Albumin Influenza Type A (PCR) NEGATIVE Influenza Type B (PCR) NEGATIVE RSV RNA Qual (PCR) NEGATIVE SARS-CoV-2 RNA (RT-PCR) NEGATIVE Microbiology Microbiology Results: Microbiology 05/22/22 18:53 Blood - Venous Blood Culture - Preliminary No growth after 24 hours. 05/22/22 17:46 Blood - Venous Blood Culture - Preliminary No growth after 24 hours. Quality Stroke Does the patient have a stroke diagnosis?: No VTE Prior VTE?: No VTE Risk Level:: Medical - moderate - high VTE Device Contraindication: Treatment Not Indicated VTE Drug Contraindication: N/A - Med Ordered Critical Care Time Critical Care Time (minutes): 90
[2022-05-24 13:16] LABS: Magnesium 1.8 mg/dL (1.6-2.6); Phosphorus 3.6 mg/dL (2.7-4.5)
[2022-05-24 13:38] LABS: Procalcitonin 0.06 ng/mL
--- NOTE | 2022-05-24 17:39 | PM.CNPUL ---
History of Present Illness History of Present Illness Consult date: 05/24/22 Reason for consult: COPD, hypoxemia and pulmonary fibrosis Chief complaint: PNA, COPD Exacerbation Narrative: This 72 years old very pleasant female is well known to me. She is being treated for chronic obstructive pulmonary disease and also chronic pulmonary fibrosis for the past many years. Her pulmonary status has been gradually worsening especially after acute respiratory infections. Lately her pulmonary fibrosis has been somewhat progressive. She feels better when she is on high-dose steroids but then the does is reduced, and her symptoms start getting worse. In the last few weeks her does of prednisone was decreased from 40 mg to 10 mg a day. She is on home oxygen 3 L/minute. Recently after her office visit, we are trying to get her started on anti fibrotic agent ,OFEV . She is also being treated for chronic obstructive pulmonary disease. She has chronic cough which is related to pulmonary fibrosis. She was now admitted with a few days history of feeling more short of breath, congested and low-grade fever with increased cough. Her chest x-ray shows, usual bilateral extensive pulmonary fibrosis and, alveolar density in the right mid and lower lobe suggesting pneumonia. Initially patient was treated on med surge floor, and because of increasing hypoxemia she was on high-flow O2, but in spite of that she developed increased respiratory distress. She is now a in the intensive care unit, has been placed on BiPAP, and O2 supplementation, and her respiratory distress is much improved. Review of Systems Review of Systems: Yes Unobtainable due to mental condition [facility] Past Medical History Medical History (Updated 05/24/22 @ 17:51 by Kellie Lazar MD) COPD (chronic obstructive pulmonary disease) Cough Dementia Exercise hypoxemia Hypoxemia Pneumonia Pulmonary fibrosis Respiratory failure with hypoxia and hypercapnia Restrictive lung disease Sigmoid diverticulitis Surgical History Surgical History H/O: hysterectomy History of bilateral hip replacements History of cholecystectomy Social History Social History Household Members: Spouse Household Members Other:: 1 Housing: House Do you presently have visiting nurse or other home services: No Alcohol intake: never Patient Tobacco Use Status: Never used Tobacco e-Cigarette/Vaping Use: Never Used Second Hand Smoke Exposure: No service: No Current occupational status: retired [employer] Allergies Allergy/AdvReac Type Severity Reaction Status Date / Time latex [LATEX] Allergy Intermediate RASH Verified 04/25/22 16:17 Active Medications: Current Medications Albuterol/Ipratropium (Albuterol/Iprat 2.5/0.5mg 3 Ml Ampul.Neb) 3 ml INHALE RQ4H WHILE AWAKE [facility] Last Admin: 05/24/22 15:18 Dose: 3 ml Enoxaparin Sodium (Enoxaparin Sodium 40 Mg/0.4 Ml Syringe) 40 mg SUBCUT Q24H [facility] Last Admin: 05/23/22 22:42 Dose: 40 mg Hydromorphone HCl (Hydromorphone Hcl 0.5 Mg/0.5 Ml Syringe) 0.5 mg IVPUSH Q1H PRN; Protocol PRN Reason: WOB Hydromorphone HCl (Hydromorphone Hcl 1 Mg/Ml Syringe) 1 mg IVPUSH Q1H PRN; Protocol PRN Reason: Severe WOB Piperacillin Sod/Tazobactam (Sod 4.5 gm/ Sodium Chloride) 100 mls @ 200 mls/hr IV Q6H [facility] Last Infusion: 05/24/22 13:48 Dose: Infused Vancomycin HCl 1,000 mg/ (Sodium Chloride) 270 mls @ 270 mls/hr IV Q24H [facility] Norepinephrine Bitartrate (Levophed) 8 mg in 250 mls @ 0 mls/hr IV .Q0M [facility]; Protocol Last Titration: 05/24/22 16:41 Dose: 0.03 mcg/kg/min, 3.88 mls/hr Methylprednisolone Sodium Succinate (Methylprednisolone Sod Succ 125 Mg/2 Ml Vial) 80 mg IVPUSH Q8H [facility] Ondansetron HCl (Ondansetron Hcl 4 Mg/2 Ml Vial) 4 mg IVPUSH Q8H PRN PRN Reason: Nausea and Vomiting Last Admin: 05/23/22 04:48 Dose: 4 mg Home Medications Medication Instructions Recorded Confirmed Last Taken Type montelukast 10 mg tablet 10 mg PO DAILY 05/12/20 05/22/22 05/22/22 History famotidine 40 mg tablet 40 mg PO DAILY PRN Acid Reflux 09/08/20 05/22/22 Unknown History donepezil 5 mg tablet 5 mg PO BEDTIME 11/05/22/22 05/21/22 History sertraline 50 mg tablet 50 mg PO DAILY 04/25/22 05/22/22 05/22/22 History cefuroxime axetil 250 mg tablet 1 tab PO BID 05/22/22 05/22/22 05/22/22 History codeine 10 mg-guaifenesin 100 mg/5 5 ml PO BID PRN Cough 05/22/22 05/22/22 Unknown History mL oral liquid Physical Exam Vital Signs: Vital Signs: Last Vital Signs Temp 98.5 F 05/24/22 16:00 Pulse 91 05/24/22 16:57 Resp 27 H 05/24/22 16:57 BP 137/75 05/24/22 16:57 Pulse Ox 91 L 05/24/22 16:57 O2 Del Method 05/24/22 16:57 O2 Flow Rate 15 05/23/22 20:15 FiO2 70 05/24/22 16:57 Oxygen Flow Rate 3 05/22/22 17:27 BMI result Body Mass Index 29.7 Const: Other: Patient is currently on BiPAP. She is able to answer the question , claims that she is feeling better She is grossly obese with round face General: comfortable, alert and awake Orientation/consciousness: patient oriented x3 HEENT: Head: Yes normal to inspection General nose exam: nares abnormal (The nares are somewhat excoriated and inflammed), No nasal polyps present and No nasal discharge present Face and sinus: No sinuses nontender (Slightly tender on the right side) Mouth: oropharynx normal Throat: Yes posterior oropharynx normal Eyes: General: appearance normal, both eyes and all related structures Neck: Neck: Yes normal visual inspection, Yes no lymphadenopathy, Yes trachea midline and Yes no JVD Thyroid: Thyroid normal Chest: Chest palpation & inspection: normal inspection of the chest, normal palpation of entire chest wall and no tenderness Resp: Other: Percussion note is resonant. Breath sounds are distant, with prolonged expiratory phase. She has coarse crepitations over both lower lobes, and much more prominent over the right lower lobe. Cardio: Palpation: normal PMI Rate: regular rate Rhythm: regular rhythm Heart sounds: no gallops and no murmurs GI: Palpation (GI): Soft to palpation, nontender, No hepatosplenomegaly present, no masses and Other GI palpation findings present (Abdomen is moderately obese and protuberant) Auscultation: normal bowel sounds Back/Spine/Pelvis: Other: Not examined Skin: General skin exam: no rashes or lesions noted Neuro: General: patient oriented x3 and no focal motor deficits Cranial nerves: Yes CN's II-XII intact bilaterally Extrem: General: Yes normal to inspection, Yes no clubbing, cyanosis or edema and Yes no calf tenderness Psych: Appearance: grossly normal and well kempt Speech and movement: Normal speech and movement present Results Laboratory Findings CBC and BMP: 05/24/22 05:22 05/24/22 05:22 ABG, PT/INR, D-dimer: PT/INR, D-dimer PT 13.0 SEC (10.0-13.1) 05/22/22 17:46 INR 1.1 (0.9-1.1) 05/22/22 17:46 Abnormal lab findings: Abnormal Labs 05/22/22 05/22/22 05/22/22 17:46 17:46 17:46 WBC 15.9 H RBC 3.95 L Hgb Hct MCV Immature Gran % (Auto) 3.9 H Neut % (Auto) 88.8 H Lymph % (Auto) 5.2 L [place] % (Auto) 1.8 L Lymph # (Auto) 0.8 L Abs Immat Gran (auto) 0.62 H Absolute Neuts (auto) 14.1 H Absolute Nucleated RBC 0.030 H Neutrophils % (Manual) Lymphocytes % (Manual) Abs Neuts (Manual) Lymphocytes # (Manual) APTT 23.2 L VBG pH VBG HCO3 Chloride BUN 20 H Random Glucose 241 H Fasting Glucose Lactic Acid Lactic Acid F/U @ 2Hr Lactic Acid F/U @ 4Hr B-Natriuretic Peptide Total Protein Albumin 05/22/22 05/22/22 05/22/22 17:46 17:46 17:52 WBC RBC Hgb Hct MCV Immature Gran % (Auto) Neut % (Auto) Lymph % (Auto) [place] % (Auto) Lymph # (Auto) Abs Immat Gran (auto) Absolute Neuts (auto) Absolute Nucleated RBC Neutrophils % (Manual) Lymphocytes % (Manual) Abs Neuts (Manual) Lymphocytes # (Manual) APTT VBG pH 7.45 H VBG HCO3 21 L Chloride BUN Random Glucose Fasting Glucose Lactic Acid 3.5 H* Lactic Acid F/U @ 2Hr Lactic Acid F/U @ 4Hr B-Natriuretic Peptide 223 H Total Protein Albumin 05/22/22 05/22/22 05/23/22 20:13 22:29 06:04 WBC 14.0 H RBC 3.53 L Hgb 11.3 L Hct 33.9 L MCV Immature Gran % (Auto) Neut % (Auto) Lymph % (Auto) [place] % (Auto) Lymph # (Auto) Abs Immat Gran (auto) Absolute Neuts (auto) Absolute Nucleated RBC 0.020 H Neutrophils % (Manual) 88 H Lymphocytes % (Manual) 5 L Abs Neuts (Manual) 12.9 H Lymphocytes # (Manual) 0.7 L APTT VBG pH VBG HCO3 Chloride BUN Random Glucose Fasting Glucose Lactic Acid Lactic Acid F/U @ 2Hr 3.7 H* Lactic Acid F/U @ 4Hr 2.7 H* B-Natriuretic Peptide Total Protein Albumin 05/23/22 05/24/22 05/24/22 06:04 05:22 05:22 WBC 22.4 H RBC 3.27 L Hgb 10.4 L Hct 32.4 L MCV 99.1 H Immature Gran % (Auto) 4.0 H Neut % (Auto) 88.8 H Lymph % (Auto) 2.9 L [place] % (Auto) Lymph # (Auto) 0.6 L Abs Immat Gran (auto) 0.90 H Absolute Neuts (auto) 19.9 H Absolute Nucleated RBC Neutrophils % (Manual) Lymphocytes % (Manual) Abs Neuts (Manual) Lymphocytes # (Manual) APTT VBG pH VBG HCO3 Chloride 109 H 109 H BUN 18 H Random Glucose 214 H Fasting Glucose 146 H Lactic Acid Lactic Acid F/U @ 2Hr Lactic Acid F/U @ 4Hr B-Natriuretic Peptide Total Protein 6.1 L Albumin 3.1 L 05/24/22 05/24/22 05:22 12:55 WBC RBC Hgb Hct MCV Immature Gran % (Auto) Neut % (Auto) Lymph % (Auto) [place] % (Auto) Lymph # (Auto) Abs Immat Gran (auto) Absolute Neuts (auto) Absolute Nucleated RBC Neutrophils % (Manual) Lymphocytes % (Manual) Abs Neuts (Manual) Lymphocytes # (Manual) APTT VBG pH VBG HCO3 28 H Chloride BUN Random Glucose Fasting Glucose Lactic Acid Lactic Acid F/U @ 2Hr Lactic Acid F/U @ 4Hr B-Natriuretic Peptide 304 H Total Protein Albumin Microbiology: Microbiology 05/22/22 18:53 Blood - Venous Blood Culture - Preliminary No growth after 24 hours. 05/22/22 17:46 Blood - Venous Blood Culture - Preliminary No growth after 24 hours. Diagnostic Findings Chest x-ray: report reviewed and image reviewed Assessment and Plan (1) COPD exacerbation: Status: Acute (2) Pulmonary fibrosis: Status: Acute (3) Pneumonia: Status: Acute (4) Respiratory failure with hypoxia and hypercapnia: Status: Acute Plan This patient was previous diagnosis of COPD and also pulmonary fibrosis, currently worsened because of PNEUMONIA ( most likely community-acquired ) Pulmonary fibrosis has been somewhat progressive, and now she has super added pneumonitis, which has resulted in acute respiratory distress. She has only mild hypercapnia which is corrected, and predominantly she has hypoxemia, which is now improved with the use of BiPAP. Recc . Continue BiPAP therapy, and once she is improved and stable she can be weaned down to oxygen via nasal cannula. Chato dalal Q 6 hours while awake. Treat for community-acquired pneumonia. I think vancomycin can be stopped, but I will defer this decision to ID . Dr. Hernandez. Treat with high does steroids, SOLU-MEDROL 80 mg IV q.8 hours is fine, and as she stabilizes this is to be wean down slowly. She would need a repeat CT scan of the chest, but this can be done before her discharge from the hospital. Thank you for asking me to see this patient. Time Spent With Patient Time: Total time managing care of this patient today ____ minutes. Procedures Date of Service Date of Service: 05/24/22
[2022-05-24] MEDS: methylPREDNISolone Sod Succ 125 MG/2 ML VIAL 80 MG IVPUSH (20:27)
--- NOTE | 2022-05-24 23:03 | W.PM.IDCN ---
History of Present Illness Data of Consult Service Date: 05/24/22 Requesting physician: Marvel Hinds Primary Care Provider: Soren Yan MD [facility] Reason for consult: weakness?infection She presents with weakness and cough couple days. She has ILD/pulmonary fibrosis. CT looks similar to prior one. Review of Systems Review of Systems: Yes all other systems are reviewed and are negative PMFSH Past Medical History Medical History COPD (chronic obstructive pulmonary disease) Cough Dementia Exercise hypoxemia Hypoxemia Pneumonia Pulmonary fibrosis Respiratory failure with hypoxia and hypercapnia Restrictive lung disease Sigmoid diverticulitis Family History Family history: reviewed and not pertinent Surgical History Surgical History H/O: hysterectomy History of bilateral hip replacements History of cholecystectomy Social History Social History Household Members: Spouse Household Members Other:: 1 Housing: House Do you presently have visiting nurse or other home services: No Alcohol intake: never Patient Tobacco Use Status: Never used Tobacco e-Cigarette/Vaping Use: Never Used Second Hand Smoke Exposure: No service: No Current occupational status: retired Meds Allergies Allergy/AdvReac Type Severity Reaction Status Date / Time latex [LATEX] Allergy Intermediate RASH Verified 04/25/22 16:17 Active Medications: Current Medications Albuterol/Ipratropium (Albuterol/Iprat 2.5/0.5mg 3 Ml Ampul.Neb) 3 ml INHALE RQ4H WHILE AWAKE [facility] Last Admin: 05/24/22 19:08 Dose: 3 ml Enoxaparin Sodium (Enoxaparin Sodium 40 Mg/0.4 Ml Syringe) 40 mg SUBCUT Q24H [facility] Last Admin: 05/23/22 22:42 Dose: 40 mg Hydromorphone HCl (Hydromorphone Hcl 0.5 Mg/0.5 Ml Syringe) 0.5 mg IVPUSH Q1H PRN; Protocol PRN Reason: WOB Hydromorphone HCl (Hydromorphone Hcl 1 Mg/Ml Syringe) 1 mg IVPUSH Q1H PRN; Protocol PRN Reason: Severe WOB Last Admin: 05/24/22 19:20 Dose: 1 mg Piperacillin Sod/Tazobactam (Sod 4.5 gm/ Sodium Chloride) 100 mls @ 200 mls/hr IV Q6H [facility] Last Admin: 05/24/22 20:26 Dose: 200 mls/hr Vancomycin HCl 1,000 mg/ (Sodium Chloride) 270 mls @ 270 mls/hr IV Q24H [facility] Norepinephrine Bitartrate (Levophed) 8 mg in 250 mls @ 0 mls/hr IV .Q0M [facility]; Protocol Last Titration: 05/24/22 18:24 Dose: 0 mcg/kg/min, 0 mls/hr Methylprednisolone Sodium Succinate (Methylprednisolone Sod Succ 125 Mg/2 Ml Vial) 80 mg IVPUSH Q8H [facility] Last Admin: 05/24/22 20:27 Dose: 80 mg Ondansetron HCl (Ondansetron Hcl 4 Mg/2 Ml Vial) 4 mg IVPUSH Q8H PRN PRN Reason: Nausea and Vomiting Last Admin: 05/23/22 04:48 Dose: 4 mg Home Medications Medication Instructions Recorded Confirmed Last Taken Type montelukast 10 mg tablet 10 mg PO DAILY 05/12/20 05/22/22 05/22/22 History famotidine 40 mg tablet 40 mg PO DAILY PRN Acid Reflux 09/08/20 05/22/22 Unknown History donepezil 5 mg tablet 5 mg PO BEDTIME 04/25/22 05/22/22 05/21/22 History sertraline 50 mg tablet 50 mg PO DAILY 04/25/22 05/22/22 05/22/22 History cefuroxime axetil 250 mg tablet 1 tab PO BID 05/22/22 05/22/22 05/22/22 History codeine 10 mg-guaifenesin 100 mg/5 5 ml PO BID PRN Cough 05/22/22 05/22/22 Unknown History mL oral liquid Physical Exam Vital Signs: Vital Signs: Last Vital Signs Temp 98.5 F 05/24/22 16:00 Pulse 102 H 05/24/22 22:00 Resp 29 H 05/24/22 22:00 BP 108/75 05/24/22 22:00 Pulse Ox 91 L 05/24/22 22:00 O2 Del Method 05/24/22 22:00 O2 Flow Rate 15 05/23/22 20:15 FiO2 80 05/24/22 22:00 Oxygen Flow Rate 3 05/22/22 17:27 BMI result Body Mass Index 29.7 Const: General: cooperative HEENT: Head: Yes normal to inspection Face and sinus: Yes normal facial exam Mouth: Normal oral and palatal mucosa present Teeth and gingiva: dentition normal Eyes: General: appearance normal, both eyes and all related structures Pupils: Equal, round and reactive pupils present Resp: Other: bipap ,Braun Cardio: Rate: regular rate Rhythm: regular rhythm GI: Palpation (GI): Soft to palpation and nontender : General: Yes no CVA tenderness Back/Spine/Pelvis: Back: no CVA tenderness Skin: General skin exam: no rashes or lesions noted Neuro: General: moves all extremities Cranial nerves: Yes Equal, round and reactive pupils present Extrem: General: Yes normal to inspection Psych: Appearance: grossly normal Results Labs CBC & Chem 7: 05/24/22 05:22 05/24/22 05:22 Labs: Short CBC 05/24/22 Range/Units 05:22 WBC 22.4 H (4.8-10.8) X10*3/uL Hgb 10.4 L (12.0-16.0) g/dl Hct 32.4 L (37.0-47.0) % Plt Count 234 (160-400) X10*3/uL BMP 05/24/22 05:22 Sodium 143 Potassium 4.3 Chloride 109 H Carbon Dioxide 25 BUN 14 Creatinine 0.84 Calcium 9.1 Liver Function 05/24/22 Range/Units 05:22 Total Bilirubin 0.5 (0.0-1.0) mg/dL AST 23 (5-31) U/L ALT 21 (0-31) U/L Alkaline Phosphatase 71 D (39-117) U/L Albumin 3.1 L (3.5-5.0) g/dL Microbiology Microbiology Results: Microbiology 05/22/22 18:53 Blood - Venous Blood Culture - Preliminary No growth after 48 hours. 05/22/22 17:46 Blood - Venous Blood Culture - Preliminary No growth after 48 hours. Assessment and Plan (1) Respiratory failure with hypoxia and hypercapnia: Status: Acute This appears more like ILD exacerbation. There are no severe changes on CT chest. There doesnt appear to be bacterial process (2) COPD exacerbation: Status: Acute Plan Hold antibiotics Observe. Time Spent With Patient Time: Total time managing care of this patient today ____ minutes.
[2022-05-25] VITALS (38 sets, daily range): BP systolic 93–163; BP diastolic 50–87; PULSE 66–120; RESP 13–60; TEMP 36.3–36.7; O2SAT 87–99; BMI 29.7
[2022-05-25] MEDS: Enoxaparin Sodium 40 MG/0.4 ML SYRINGE SUBCUT ×2 (00:07→22:58)
[2022-05-25] MEDS: HYDROmorphone HCl 1 MG/ML SYRINGE IVPUSH ×4 (00:29→16:18)
[2022-05-25] MEDS: Furosemide 40 MG/4 ML VIAL IVPUSH (00:35)
--- NOTE | 2022-05-25 01:05 | PM.CCPN ---
Subjective Subjective Date of Service: 05/25/22 Critical Care Time (minutes): 45 Comment: Early this morning at approx 0030, the patient was observed to be tachypneic (RR high 30's-40's), and hypertensive (SBP 160's), using accessory muscles with mildly labored breathing. On BiPAP 14/6/80%, Vt 450, O2 Sat 92%.? On my exam she was awake and appropriately responsive. Crackles auscultated at bilateral lung bases. No JVD at 30?.? RRR, normal-sounding S1 and S2, with no murmur or gallops.? She had trivial edema of the legs. Review of I and O's: Cumulative fluid balance +[id number] since admission. Assesment: As described in Dr Hinds's note ? Mucous Plug worsened by Bipap Likely fluid overloaded due to intake ( 2.5L +) She was given Lasix 40mg and trialed on HFNC 45L/100%. RR came down to low 20's, O2 sat 88-90%, she diuresed approx 700ml. After about 1 hour, she became fatigued with O2 sat maintaining 85-86% and increasing RR. She was put back on BiPap 12/6/90%, Vt 480, RR 21, O2 Sat 91%, BP 123/69. Total critical time 45 min Physical Exam Vital Signs: Vital Signs: Last Vital Signs Temp 98.5 F 05/24/22 16:00 Pulse 83 05/25/22 01:00 Resp 22 H 05/25/22 01:00 BP 113/68 05/25/22 01:00 Pulse Ox 87 L 05/25/22 01:00 O2 Del Method 05/25/22 01:00 O2 Flow Rate 50 05/25/22 01:00 FiO2 100 05/25/22 01:00 Oxygen Flow Rate 3 05/22/22 17:27 BMI result Body Mass Index 29.7 Objective Data Labs CBC & Chem 7: 05/24/22 05:22 05/24/22 05:22 Labs: Laboratory Results - last 24 hr 05/24/22 05/24/22 05/24/22 05:22 05:22 05:22 WBC 22.4 H RBC 3.27 L Hgb 10.4 L Hct 32.4 L MCV 99.1 H MCH 31.8 MCHC 32.1 RDW 13.3 Plt Count 234 MPV 9.7 Immature Gran % (Auto) 4.0 H Neut % (Auto) 88.8 H Lymph % (Auto) 2.9 L [place] % (Auto) 4.1 Eos % (Auto) 0.0 Baso % (Auto) 0.2 Lymph # (Auto) 0.6 L [place] # (Auto) 0.9 Eos # (Auto) 0.0 Baso # (Auto) 0.0 Abs Immat Gran (auto) 0.90 H Absolute Neuts (auto) 19.9 H Absolute Nucleated RBC 0.000 Nucleated RBC % (auto) 0.0 VBG pH VBG pCO2 VBG pO2 VBG HCO3 VBG O2 Saturation VBG Base Excess Sodium 143 Potassium 4.3 Chloride 109 H Carbon Dioxide 25 Anion Gap 13 BUN 14 Creatinine 0.84 Estim Creat Clear Calc 52.4 Estimated GFR > 60 Fasting Glucose 146 H Lactic Acid Calcium 9.1 Phosphorus Magnesium Total Bilirubin 0.5 AST 23 ALT 21 Alkaline Phosphatase 71 D B-Natriuretic Peptide 304 H Total Protein 6.1 L Albumin 3.1 L Procalcitonin Influenza Type A (PCR) Influenza Type B (PCR) RSV RNA Qual (PCR) SARS-CoV-2 RNA (RT-PCR) 05/24/22 05/24/22 05/24/22 10:27 12:48 12:48 WBC RBC Hgb Hct MCV MCH MCHC RDW Plt Count MPV Immature Gran % (Auto) Neut % (Auto) Lymph % (Auto) [place] % (Auto) Eos % (Auto) Baso % (Auto) Lymph # (Auto) [place] # (Auto) Eos # (Auto) Baso # (Auto) Abs Immat Gran (auto) Absolute Neuts (auto) Absolute Nucleated RBC Nucleated RBC % (auto) VBG pH VBG pCO2 VBG pO2 VBG HCO3 VBG O2 Saturation VBG Base Excess Sodium Potassium Chloride Carbon Dioxide Anion Gap BUN Creatinine Estim Creat Clear Calc Estimated GFR Fasting Glucose Lactic Acid 1.2 Calcium Phosphorus 3.6 Magnesium 1.8 Total Bilirubin AST ALT Alkaline Phosphatase B-Natriuretic Peptide Total Protein Albumin Procalcitonin Influenza Type A (PCR) NEGATIVE Influenza Type B (PCR) NEGATIVE RSV RNA Qual (PCR) NEGATIVE SARS-CoV-2 RNA (RT-PCR) NEGATIVE 05/24/22 05/24/22 12:48 12:55 WBC RBC Hgb Hct MCV MCH MCHC RDW Plt Count MPV Immature Gran % (Auto) Neut % (Auto) Lymph % (Auto) [place] % (Auto) Eos % (Auto) Baso % (Auto) Lymph # (Auto) [place] # (Auto) Eos # (Auto) Baso # (Auto) Abs Immat Gran (auto) Absolute Neuts (auto) Absolute Nucleated RBC Nucleated RBC % (auto) VBG pH 7.36 VBG pCO2 50 VBG pO2 65 VBG HCO3 28 H VBG O2 Saturation 89.0 VBG Base Excess 2.9 Sodium Potassium Chloride Carbon Dioxide Anion Gap BUN Creatinine Estim Creat Clear Calc Estimated GFR Fasting Glucose Lactic Acid Calcium Phosphorus Magnesium Total Bilirubin AST ALT Alkaline Phosphatase B-Natriuretic Peptide Total Protein Albumin Procalcitonin 0.06 Influenza Type A (PCR) Influenza Type B (PCR) RSV RNA Qual (PCR) SARS-CoV-2 RNA (RT-PCR) Microbiology Microbiology Results: Microbiology 05/22/22 18:53 Blood - Venous Blood Culture - Preliminary No growth after 48 hours. 05/22/22 17:46 Blood - Venous Blood Culture - Preliminary No growth after 48 hours. Quality Stroke Does the patient have a stroke diagnosis?: No VTE Prior VTE?: No VTE Risk Level:: Medical - moderate - high VTE Device Contraindication: Treatment Not Indicated VTE Drug Contraindication: N/A - Med Ordered
[2022-05-25] MEDS: Piperacillin Sodium/Tazobactam 4.5 GM in 0.9 % Sodium Chloride 100 ML IV ×2 (02:12→08:13)
[2022-05-25] MEDS: methylPREDNISolone Sod Succ 125 MG/2 ML VIAL 80 MG IVPUSH (04:42)
[2022-05-25 05:31] LABS: VBG Base Excess 8.1 mmol/L; VBG HCO3 33 mmol/L (22-26); VBG pCO2 50 mmHg; VBG pH 7.43 (7.32-7.43); VBG pO2 46 mmHg
[2022-05-25 05:38] LABS: Hematocrit 35.2 % (37.0-47.0); Hemoglobin 11.1 g/dl (12.0-16.0); Mean Corpuscular HGB Conc 31.5 g/dl (31.0-35.0); Mean Corpuscular Hemoglobin 31.2 pg (27.0-33.0); Mean Corpuscular Volume 98.9 fL (80.0-98.0); Mean Platelet Volume 9.4 fL (9.4-12.3); Platelet Count 230 X10*3/uL (160-400); Red Blood Count 3.56 X10*6/uL (4.20-5.50); Red Cell Distribution Width 13.6 % (11.0-16.0); White Blood Count 25.9 X10*3/uL (4.8-10.8)
[2022-05-25 06:05] LABS: Albumin Level 3.2 g/dL (3.5-5.0); Anion Gap 13 (12-20); Blood Urea Nitrogen 18 mg/dL (9-16); Calcium 9.2 mg/dL (8.4-10.2); Carbon Dioxide 34 mmol/L (22-29); Chloride 105 mmol/L (96-108); Creatinine Clr Calc Pharmacy 34.9; Estimated Glomerular Filt Rate 42; Glucose Random 171 mg/dL (60-115); Magnesium 1.9 mg/dL (1.6-2.6); Phosphorus 3.8 mg/dL (2.7-4.5); Potassium 3.4 mmol/L (3.3-5.1); Sodium 149 mmol/L (135-145)
--- NOTE | 2022-05-25 06:13 | PC.NURSE ---
CARE ASSUMED 23:15...REMAINED ON BIPAP 14/8 AND 100% FIO2..AWAKE..ALERT..ORIENTED X3.....TACHYPNEIC AND ANXIOUS AT HS...LUNGS WITH SCATTERED WHEEZES AND DIFFUSE CRACKLES....DILAUDID 1 MG IV GIVEN FOR WORK OF BREATHING PER ICU [employer]...FLUID (+) 2.5 LITERS..LASIX 40 MG IV GIVEN...EPREZ DRAINING CLEAR YELLOW URINE..REPORTED IMPROVED WORK OF BREATHING..ICU [employer] AT BEDSIDE..TRIAL ON HI-CANDACE CANNULA X1 HOUR ..100% O2 AND 50 L/M...SAO2 INITIALLY 87-88%...[employer] REPORTED GOAL OF 87-88%SAO2 ACCEPTABLE....SAO2 GRADUALLY DECREASED TO 82-83%..RETURNED TO BIPAP 14/6 AND 90% O2..THIS AM DECREASED SAO2 AND INCREASED WORK OF BREATHING AFTER FIO2 WEANED TO 80% AND BIPAP TO 12/6...DILAUDID REPEATED AND BIPAP RETURNED TO 14/6 AND FIO2 100%...CURRENTLY DOZING..NO DISTRESS...SAO2 87-88%.
[2022-05-25 06:36] LABS: Venous Blood Gas Refer to POC result
[2022-05-25] MEDS: Albuterol/Iprat 2.5/0.5MG 3 ML AMPUL.NEB INHALE ×4 (08:04→19:47)
[2022-05-25] MEDS: acetaZOLAMIDE sodium 500 MG VIAL IVPUSH ×2 (08:13→21:20)
--- NOTE | 2022-05-25 10:21 | MHC.CM.PN ---
Addendum entered by Shreya aPrham 05/25/22 10:23: Per discussion w/MD at rounds, pt has underlying severe pulmonary fibrosis and may not survive this hospitalization. She may require intubation, however, MD feels this would not support recovery nor would a trach. MD to hold discussion of care goals with family. Initial d/c plan was for a return to home with family support. CM to follow Original Note: Met with pt, pt's spouse, Castro, pt's grandchild Marianela and Marianela's to discuss HCP completion. Pt on Bipap and weak: was able to verbalize understanding of health care proxy and appointed her spouse as primary agent and Marianela as secondary. CM signed on behalf of pt w/2 witness signatures. Copies given to family and one in chart.
[2022-05-25 11:42] LABS: Triglycerides 115 mg/dL
--- NOTE | 2022-05-25 11:48 | MHC.CLN ---
PT WITH POOR PO INTAKE R/T BIPAP MASK AND REQUIRES TPN FOR NUTRITION SUPPORT DISCUSSED AT ROUNDS WITH MD PT TO RECEIVE TPN PER MD REQUEST FOR NUTRITION SUPPORT RECOMMEND DAY 1: D15AA5 AT 35ML/HR TO PROVIDE 596KCALS, 42G PROTEIN DISCUSSED WITH PHARMACY REPLETE LYTES NEEDED OBTAIN TRIG LEVEL SEE ALSO FULL CLINICAL NUTRITION ASSESSMENT
[2022-05-25] MEDS: methylPREDNISolone Sod Succ 125 MG/2 ML VIAL 250 MG IVPUSH ×2 (13:04→18:02)
[2022-05-25] MEDS: Doxycycline Hyclate 100 MG in 0.9 % Sodium Chloride 250 ML 166.67 MG IV (13:07)
[2022-05-25] MEDS: Dextrose 5 % 1,000 ML 100 ML IVCONT ×2 (13:07→22:58)
[2022-05-25] MEDS: fentaNYL citrate/NS 1,000 MCG/100 ML PLAST..BAG 5 MCG IVCONT (13:07)
--- NOTE | 2022-05-25 17:00 | P.PNCC_ITS ---
Subjective Subjective Date of Service: 05/25/22 Interval History: Mrs. Huynh was transferred to the ICU yesterday with resp distress and acute hypoxemic resp failure. The patient is a 72 yo F with PMHx of pulmonary fibrosis on 2L at home, COPD, mild dementia on Aricept, GERD, and depression.? She is a long time patient of Dr. Lazar. I spoke w the family at length today and they described to me in detail how slowly but relentlessly over the past few months she?s been going downhill with her exercise capacity.? Maybe about six months ago she started to need oxygen at home. ?Over time, she started to need the oxygen when going out shopping.? Then her ability to do housework deteriorated bec of MEHTA.? Then they had to buy her an easy chair to sit in during the day.? Then she started sleeping in the easy chair.? Recently she can hardly walk bec of MEHTA. She was brought to ED by family on May 22 bec of increasing SOB w increased oxygen requirement. SpO2 at home was in the 40s.? The patient reported feeling feverish, having chills, increased weakness, cough, chest tightness, and some sputum production. On arrival to the ED, SpO2 was 86% on 3 L of oxygen, in mod resp distress.? Labs were notable for WBC count 14, hemoglobin 11, BUN/creat 20/1.0. VBG 7.45/29/-1. Lactic acid 3.5, BNP? 223.? Viral serologies all negative.? Chest x-ray showed diffusely increased reticular markings throughout both lungs consistent with interstitial lung disease, with very slightly increased patchy airspace opacities in the right mid and lower lung compared to a prior film of May 19. The patient was admitted to medicine with dx of underlying pulmonary fibrosis, acute CAP, viral vs bacterial, and poss COPD exacerbation.? She was given Abx, sterhoids, and BDs.? On HFNC 50L/50%, she was Sat?ing high 90s.? On the night of May 23, oxygenation worsened and she was changed to NRB FM.? Steroids were bumped to 60mg q6hr.? Yesterday morning, SpO2 was even worse, and HFNC was added to NRB FM.? With Sat?s still low, a repeat CXR was worse, with more patchy opacification in the LLs.? She was switched to vanco and Zosyn, given Lasix, and tx to ICU for NIV. In ICU she was started on BiPAP.? A CVL was placed for access and monitoring.? The post procedure film showed even worse diffuse interstitial infiltrates and patchy LL opacities.? On my exam in the ICU, she was awake and appropriately responsive.? Surprisingly, she looked nonplussed, and essentially nontoxic.? She just had mild-moderately labored breathing. On BiPAP yesterday with settings around 16/5/90%, RR was low 40s, Vt 450, Sat 93%.? Through the day yesterday, and last night, she needed a few bolus doses of Dilaudid.? This morning, she was even more SOB, was requiring 100% FiO2 on BiPAP, and had very severe MEHTA with the nurses just turning her in bed.? We started her on a fentanyl infusion and pulse steroids. This evening, on fentanyl 50ug, she looks dramatically more comfortable, on lower BiPAP settings.? On BiPAP 12/8/80%, RR is 19, Vt 550cc, Ve 10L, Sat 89- 91%.? CVBG this morning 7.43/50/+8. ?HR 90, BP 122/66.? She continues afebrile.? No JVD at 30?.? Chest CTA.? RRR, normal-sounding S1 and S2, with no murmur or g allops.? Abdomen is benign.? She has trivial edema. LABORATORY DATA: ?Below.? Notably, white count this morning is bumped further (? 2? steroids).? Sodium is up to 149 after diuresis. ?BUN/creatinine bumped to 18/1.2.? Potassium 3.4. Echo 05/24:? Normal LV and RV size and fxn.? Noticeably dilated LA.? No AI, trace MR, 2+ TR, CWD jet 3.2 m/sec, IVC 1.3-1.6 cm w good insp collapse. IMPRESSION: 1. Underlying Interstitial lung disease.? Chest x-rays are considerably worse compared to her last film of January,.? Prognosis looks quite poor to me. ?Discussed with Dr. Lazar.? We switched to pulse steroids today.? I spoke with family at length.? See below. 2. Acute hypoxemic resp failure.? 2? above. 3. ? CAP.? I?m doubtful that she has a bacterial lung infection.? If she did, she?d be much sicker and likely intubated.? I doubt vancomycin is warranted, and pretty much the same thing for the Cheng.? The main thing she needs is steroids.? Dr. Hernandez is in agreement.? Dr. Lazar felt that some broad spectrum abx was indicated.? So I d/c?d jayne and Cheng, wrote for a 5-day course of doxy. 4. BELINDA.? 2? dehydration.? Giving her fluids. 5. Hypernatremia.? Wrote her for D5W. 6. Hyperkalemia.? Repleted. 7. Nutrition.? Prob mild PCM.? In this condition, she?s no candidate for tube feeds.? Started her on TPN. I spoke at length with the family in conference, including the (1? HCP) and granddaughter (2? HCP).? As noted above, this deterioration has been slow but inexorable, over months.? This is by no means something sudden.? They have been expecting it.? And the patient has told them many times that she does not want to be intubated. I discussed the nature of pulmonary fibrosis with them, and noted that other than steroids, there is no treatment, this is an inexorable dz, and once it gets to this level, survivors are few.? I discussed that intubation really wouldn?t do anything for her survivability.? Even without that though, the family was fully on board with the patient?s wishes not to be intubated.? They just want to make sure that she doesn?t suffer. I?ve written DNR/DNI orders. Critical care time (include mult visits to the bedside):? 90+ min Critical Care Time (minutes): 90 Physical Exam Vital Signs: Vital Signs: Last Vital Signs Temp 98.0 F 05/25/22 12:00 Pulse 92 05/25/22 16:00 Resp 41 H 05/25/22 16:18 BP 120/78 05/25/22 16:00 Pulse Ox 91 L 05/25/22 16:00 O2 Del Method 05/25/22 16:00 O2 Flow Rate 50 05/25/22 01:58 FiO2 90 05/25/22 16:00 Oxygen Flow Rate 3 05/22/22 17:27 BMI result Body Mass Index 29.7 Objective Data Labs CBC & Chem 7: 05/25/22 05:18 05/25/22 05:18 Labs: Laboratory Results - last 24 hr 05/25/22 05/25/22 05/25/22 05:18 05:18 05:24 WBC 25.9 H RBC 3.56 L Hgb 11.1 L Hct 35.2 L MCV 98.9 H MCH 31.2 MCHC 31.5 RDW 13.6 Plt Count 230 MPV 9.4 Absolute Nucleated RBC 0.000 Nucleated RBC % (auto) 0.0 VBG pH 7.43 VBG pCO2 50 VBG pO2 46 VBG HCO3 33 H VBG O2 Saturation 77.0 VBG Base Excess 8.1 Sodium 149 H Potassium 3.4 D Chloride 105 Carbon Dioxide 34 H Anion Gap 13 BUN 18 H Creatinine 1.26 Estim Creat Clear Calc 34.9 Estimated GFR 42 Random Glucose 171 H Calcium 9.2 Phosphorus 3.8 Magnesium 1.9 Albumin 3.2 L Triglycerides 115 Microbiology Microbiology Results: Microbiology 05/22/22 18:53 Blood - Venous Blood Culture - Preliminary No growth after 48 hours. 05/22/22 17:46 Blood - Venous Blood Culture - Preliminary No growth after 48 hours. Quality Stroke Does the patient have a stroke diagnosis?: No VTE Prior VTE?: No VTE Risk Level:: Medical - moderate - high VTE Device Contraindication: Treatment Not Indicated VTE Drug Contraindication: N/A - Med Ordered Critical Care Time Critical Care Time (minutes): 90
[2022-05-25] MEDS: Potassium Chloride/H20 40 MEQ/100 ML PIGGYBACK 50 MEQ IV (19:31)
[2022-05-25] MEDS: HYDROmorphone HCl 0.5 MG/0.5 ML SYRINGE IVPUSH (19:31)
[2022-05-25 23:51] LABS: Glucose, Whole Blood 325 mg/dL (60-115)
[2022-05-26] VITALS (43 sets, daily range): BP systolic 96–224; BP diastolic 57–120; PULSE 76–116; RESP 14–45; TEMP 36.2–37.4; O2SAT 90–94; BMI 30.3
[2022-05-26] MEDS: methylPREDNISolone Sod Succ 125 MG/2 ML VIAL 250 MG IVPUSH ×4 (00:07→20:07)
[2022-05-26] MEDS: Doxycycline Hyclate 100 MG in 0.9 % Sodium Chloride 250 ML 166.67 MG IV ×2 (00:07→12:03)
[2022-05-26] MEDS: Insulin Lispro 100 UNIT/ML 3 ML VIAL SUBCUT ×4 (00:07→18:02)
[2022-05-26] MEDS: HYDROmorphone HCl 0.5 MG/0.5 ML SYRINGE IVPUSH ×4 (02:02→20:09)
[2022-05-26] MEDS: fentaNYL citrate/NS 1,000 MCG/100 ML PLAST..BAG 5 MCG IVCONT ×2 (05:02→15:35)
[2022-05-26 05:09] LABS: VBG Base Excess 5.1 mmol/L; VBG HCO3 32 mmol/L (22-26); VBG pCO2 61 mmHg; VBG pH 7.33 (7.32-7.43); VBG pO2 54 mmHg
[2022-05-26 05:10] LABS: Hematocrit 34.6 % (37.0-47.0); Hemoglobin 10.9 g/dl (12.0-16.0); Mean Corpuscular HGB Conc 31.5 g/dl (31.0-35.0); Mean Corpuscular Hemoglobin 32.1 pg (27.0-33.0); Mean Corpuscular Volume 101.8 fL (80.0-98.0); Mean Platelet Volume 9.6 fL (9.4-12.3); NRBC Pct Auto 0.1 /100WBC (0.0-0.2); Platelet Count 187 X10*3/uL (160-400); Red Cell Distribution Width 13.6 % (11.0-16.0)
[2022-05-26 05:11] LABS: Venous Blood Gas Refer to POC result
[2022-05-26 05:32] LABS: Basophils Percent Auto 0.3 % (0-2); Imm Gran Abs Auto 0.88 X10*3/uL (0.00-0.03); Imm Gran Pct Auto 3.1 % (0.0-0.4); Lymphocytes Absolute Auto 0.3 X10*3/uL (1.2-4.9); Lymphocytes Percent Auto 0.9 % (20-40); Monocytes Absolute Auto 0.8 X10*3/uL (0.1-1.2); Monocytes Percent Auto 2.7 % (2-11); Neutrophils Absolute Auto 26.7 x10*3/uL (2.0-8.3)
[2022-05-26 05:33] LABS: Basophils Absolute Auto 0.1 X10*3/uL (0.0-0.2); MANUAL DIFF FLAG SCAN
[2022-05-26 05:45] LABS: Albumin Level 3.2 g/dL (3.5-5.0); Anion Gap 11 (12-20); Blood Urea Nitrogen 25 mg/dL (9-16); Calcium 9.3 mg/dL (8.4-10.2); Carbon Dioxide 32 mmol/L (22-29); Chloride 103 mmol/L (96-108); Estimated Glomerular Filt Rate 45; Glucose Random 173 mg/dL (60-115); Magnesium 2.1 mg/dL (1.6-2.6); Phosphorus 2.9 mg/dL (2.7-4.5); Potassium 3.5 mmol/L (3.3-5.1); Sodium 142 mmol/L (135-145)
[2022-05-26 06:08] LABS: SLIDE REVIEW VERIFIED
--- NOTE | 2022-05-26 06:19 | PC.NURSE ---
assumed care at 1900 pt A& O, on bipap 05/04 90% dyspnic on exertion, desats with care, PRn dilaudid given with good effect. trailed on high flow 100% 50L unable to maintain 02 sat and bipap placed back within 5 mins, urine found to be leaking around cannon, advanced and inflated balloon. pt on high dose steroids and TPN md made aware new order for POC q6 and sliding scale insulin. pt resting in bed eyes closed call james within reach
[2022-05-26] MEDS: Albuterol/Iprat 2.5/0.5MG 3 ML AMPUL.NEB INHALE ×4 (07:49→21:31)
[2022-05-26] MEDS: Dextrose 5 % 1,000 ML 100 ML IVCONT (08:13)
[2022-05-26] MEDS: acetaZOLAMIDE sodium 500 MG VIAL IVPUSH ×2 (09:09→20:13)
[2022-05-26] MEDS: Furosemide 20 MG/2 ML VIAL IVPUSH (09:15)
--- NOTE | 2022-05-26 09:22 | P.PNCC_ITS ---
Subjective Subjective Date of Service: 05/26/22 Interval History: Mrs. Huynh was transferred to the ICU May 24 with resp distress and acute hypoxemic resp failure. The patient is a 72 yo F with PMHx of pulmonary fibrosis on 2L at home, COPD, mild dementia on Aricept, GERD, and depression.? She is a long time patient of Dr. Lazar. I spoke w the family at length yesterday and they described to me in detail how slowly but relentlessly over the past few months she?s been going downhill with her exercise capacity.? Maybe about six months ago she started to need oxygen at home.? Over time, she started to need the oxygen when going out shopping.? Then her ability to do housework deteriorated bec of MEHTA.? Then they had to buy her an easy chair to sit in during the day.? Then she started sleeping in the easy chair.? Recently she could hardly walk bec of MEHTA. She was brought to ED by family on May 22 bec of increasing SOB w increased oxygen requirement. SpO2 at home was in the 40s.? The patient reported feeling feverish, having chills, increased weakness, cough, chest tightness, and some sputum production. On arrival to the ED, SpO2 was 86% on 3 L of oxygen, in mod resp distress.? Labs were notable for WBC count 14, hemoglobin 11, BUN/creat 20/1.0. VBG 7.45/29/-1. Lactic acid 3.5, BNP? 223.? Viral serologies all negative.? Chest x-ray showed diffusely increased reticular markings throughout both lungs consistent with interstitial lung disease, with very slightly increased patchy airspace opacities in the right mid and lower lung compared to a prior film of May 19. The patient was admitted to medicine with dx of underlying pulmonary fibrosis, acute CAP, viral vs bacterial, and poss COPD exacerbation.? She was given Abx, sterhoids, and BDs.? On HFNC 50L/50%, she was Sat?ing high 90s.? On the night of May 23, oxygenation worsened and she was changed to NRB FM.? Steroids were bumped to 60mg q6hr.? The next morning, SpO2 was even worse, and HFNC was added to NRB FM.? With Sat?s still low, a repeat CXR was worse, with more patchy opa cification in the LLs.? She was switched to vanco and Zosyn, given Lasix, and tx to ICU for NIV. In ICU she was started on BiPAP.? A CVL was placed for access and monitoring.? T he post procedure film showed even worse diffuse interstitial infiltrates and patchy LL opacities.? On my exam in the ICU, she was awake and appropriately responsive.? Surprisingly, she looked nonplussed, and essentially nontoxic.? She just had mild-moderately labored breathing.? She did well on BiPAP initially, then we had to give her prn opiates.? She had severe MEHTA, even w turning in bed. Yesterday morning, her FiO2 was up to 100%, from 70-80% the prev day.? We started her on a fentanyl infusion and pulse steroids.? After that, she was dramatically more comfortable, on lower BiPAP settings, with RR down to 20, Vt?s up to mid-500?s on On BiPAP 05/04.? Sat 89-91% on 90% FiO2. On BiPAP 05/04/90%, her overall resp status is unchanged.? RR 18-19, Vt 550, Sat 90-92%.? CVBG this morning 7.33/61/+5.? pCO2 is signif higher.? HR 96, BP 122/66.? She continues afebrile.? Not as animated as yesterday, but she just got a bolus of Dilaudid.? No JVD at 30?.? Chest maybe some light fine rales.? RRR, normal-sounding S1 and S2, with no murmur or gallops.? Abdomen is benign.? She has trivial edema. LABORATORY DATA: ?Below.? Notably, white count this morning is bumped further (? 2? pulse steroids). ?Sodium down to 142 after D5W.? BUN up to 25, creatinine steady1.2.? Potassium 3.5. Echo 05/24:? Normal LV and RV size and fxn.? Noticeably dilated LA.? No AI, trace MR, 2+ TR, CWD jet 3.2 m/sec, IVC 1.3-1.6 cm w good insp collapse. ANTIBIOTICS: Doxycycline 07/02. IMPRESSION: 1. Underlying progressive pulmon fibrosis/interstitial lung disease.? Chest x- rays are considerably worse compared to her last film of January,.? Prognosis looks quite poor to me.? Discussed with Dr. Lazar.? We switched to pulse steroids yesterday.? Today is day# 2.? I spoke with family at length. ?See below. 2. Acute hypoxemic resp failure.? 2? above.? Maybe sounds wet today.? Wrote her for one dose Lasix.? pCO2 is up, but ventilatory parameters and oxygenation are unchanged.? Follow. 3. ? CAP.? I?m doubtful that she has a bacterial lung infection.? If she did, she?d be much sicker and intubated for sure.? I doubt abx are warranted.? The main thing she needs is steroids.? Dr. Hernandez is in agreement.? Dr. Lazar felt that some broad spectrum abx was indicated.? So I d/c?d jayne and Cheng, wrote for a 5-day course of doxy. 4. Hypernatremia. ?Resolved w D5W. 5. Hypokalemia.? Repleted. 6. Nutrition.? Prob mild PCM.? In this condition, she?s no candidate for tube feeds.? Started her on TPN. Yesterday I spoke at length with the family in conference, including the (1? HCP) and granddaughter (2? HCP).? As noted above, this deterioration has been slow but inexorable, over months.? This is by no means something sudden.? They have been expecting it.? And the patient has told them many times that she does not want to be intubated. I discussed the nature of pulmonary fibrosis with them, and noted that other than steroids, there is no treatment, this is an inexorable dz, and once it gets to this level, survivors are few.? I discussed that intubation wouldn?t do anything for her survivability.? Even without my saying so, the family was fully on board with the patient?s wishes not to be intubated.? They just want to make sure that she doesn?t suffer.? I wrote DNR/DNI orders. Spoke with the family at some length again today and explained about WOB vs oxygenation, and how we manage those. Critical care time (include mult visits to the bedside to reassess WOB and ox ygenation):? 75+ min. Critical Care Time (minutes): 75 Physical Exam Vital Signs: Vital Signs: Last Vital Signs Temp 98.1 F 05/26/22 09:00 Pulse 96 05/26/22 09:00 Resp 15 05/26/22 09:07 BP 122/66 05/26/22 09:00 Pulse Ox 94 05/26/22 09:00 O2 Del Method 05/26/22 09:00 O2 Flow Rate 50 05/25/22 01:58 FiO2 90 05/26/22 09:00 Oxygen Flow Rate 90 05/26/22 00:00 BMI result Body Mass Index 30.3 Objective Data Labs CBC & Chem 7: 05/26/22 05:00 05/26/22 05:00 Labs: Laboratory Results - last 24 hr 05/25/22 05/25/22 05/26/22 05:18 23:47 05:00 WBC 29.0 H RBC 3.40 L Hgb 10.9 L Hct 34.6 L MCV 101.8 H MCH 32.1 MCHC 31.5 RDW 13.6 Plt Count 187 MPV 9.6 Immature Gran % (Auto) 3.1 H Neut % (Auto) 93.0 H Lymph % (Auto) 0.9 L [place] % (Auto) 2.7 Eos % (Auto) 0.0 Baso % (Auto) 0.3 Lymph # (Auto) 0.3 L [place] # (Auto) 0.8 Eos # (Auto) 0.0 Baso # (Auto) 0.1 Abs Immat Gran (auto) 0.88 H Absolute Neuts (auto) 26.7 H Absolute Nucleated RBC 0.020 H Nucleated RBC % (auto) 0.1 Smear Tech's Comments VERIFIED VBG pH VBG pCO2 VBG pO2 VBG HCO3 VBG O2 Saturation VBG Base Excess Sodium Potassium Chloride Carbon Dioxide Anion Gap BUN Creatinine Estim Creat Clear Calc Estimated GFR POC Glucose 325 H Random Glucose Calcium Phosphorus Magnesium Albumin Triglycerides 115 05/26/22 05/26/22 05:00 05:02 WBC RBC Hgb Hct MCV MCH MCHC RDW Plt Count MPV Immature Gran % (Auto) Neut % (Auto) Lymph % (Auto) [place] % (Auto) Eos % (Auto) Baso % (Auto) Lymph # (Auto) [place] # (Auto) Eos # (Auto) Baso # (Auto) Abs Immat Gran (auto) Absolute Neuts (auto) Absolute Nucleated RBC Nucleated RBC % (auto) Smear Tech's Comments VBG pH 7.33 VBG pCO2 61 VBG pO2 54 VBG HCO3 32 H VBG O2 Saturation 83.0 VBG Base Excess 5.1 Sodium 142 Potassium 3.5 Chloride 103 Carbon Dioxide 32 H Anion Gap 11 L BUN 25 H D Creatinine 1.19 Estim Creat Clear Calc 37.0 Estimated GFR 45 POC Glucose Random Glucose 173 H Calcium 9.3 Phosphorus 2.9 Magnesium 2.1 Albumin 3.2 L Triglycerides Microbiology Microbiology Results: Microbiology 05/22/22 18:53 Blood - Venous Blood Culture - Preliminary No growth after 48 hours. 05/22/22 17:46 Blood - Venous Blood Culture - Preliminary No growth after 48 hours. Quality Stroke Does the patient have a stroke diagnosis?: No VTE Prior VTE?: No VTE Risk Level:: Medical - moderate - high VTE Device Contraindication: Treatment Not Indicated VTE Drug Contraindication: N/A - Med Ordered Critical Care Time Critical Care Time (minutes): 90
[2022-05-26] MEDS: fentaNYL citrate/PF 100 MCG/2 ML VIAL 50 MCG IVPUSH (09:32)
--- NOTE | 2022-05-26 09:57 | PC.NURSE ---
VO Dr Hinds - trial on Highflow for 15 min; administer 50mcg Fentanyl IVP prior to trial. RT called to bedside - patient placed on Highflow 100%, 50L at 0935 - O2 sat maintaining 88-90%, RR maintaining 12-16, patient drowsy but arousable to name. 0955 increased respiratory effort, accessory muscle use, O2 down to 87% - MD and RT at bedside - Patient placed back on Bipap 12/8 90%, O2 92%, RR 18. MD spoke with family at bedside regarding patients current status.
--- NOTE | 2022-05-26 10:06 | MHC.CLN ---
F/U TPN FOR NUTRITION SUPPORT REVIEWED LABS; NOTED TRIGS WNL DISCUSSED WITH PHARMACY PT RECEIVED D15AA5 AT 35ML/HR PROVIDED 596KCALS, 42G PROTEIN RECOMMEND DAY 2 (05/26/22): D15AA5 AT 55ML/HR WITH 23ML OF 20% LIPIDS TO PROVIDE 1489 TOTAL KCALS (28KCALS/KG BASED ON CMW), 66G PROTEIN (1.2G/KG) REPLETE LYTES NEEDED
[2022-05-26 11:33] LABS: Glucose, Whole Blood 192 mg/dL (60-115)
[2022-05-26] MEDS: bisacodyL 10 MG SUPP.RECT PR (12:02)
--- NOTE | 2022-05-26 14:18 | MHC.CM.PN ---
EMR REVIEWED, PER CC PROVIDER NOTES, FAMILY AGREED TO DNI/DNR AND NOT INTUBATE PT'S WISHES WERE NOT TO BE INTUBATED, PT REMAINS ON BIPAP AT THIS TIME, CM WILL CONT TO FOLLOW.
[2022-05-26] MEDS: HYDROmorphone HCl 1 MG/ML SYRINGE IVPUSH (16:55)
[2022-05-26] MEDS: Nitroglycerin 2 % Oint 1 GM Packet 2 INCH TRANSDERMA (16:58)
--- NOTE | 2022-05-26 17:17 | PC.NURSE ---
Addendum entered by Mariama Schwarz RN 05/26/22 17:33: BP 108/72 - Nitro removed VO Dr Hinds. VSS, Patient drowsy but arousable to name and answering questions appropriatly Original Note: 1650 - patient woke up - HR up to 140's with frequent PVCs, BP 224/120, RR mid 40's. Patient presented with labored breathing, accessory muscle use, LS fine crackles bilateral bases. Bipap increased from 85% to 100% Fio2 and MD at bedside. PRN Dilaudid 1mg IVP administered for WOB, Nitro 2 applied for BP. Patient appears more comfortable, RR 15, HR 104, BP 107/62. Patient reports feeling better .
[2022-05-26 17:55] LABS: Glucose, Whole Blood 209 mg/dL (60-115)
[2022-05-26] MEDS: Fat Emulsions 20% 250 ML 23 ML IV (18:03)
[2022-05-27] VITALS (7 sets, daily range): BP systolic 114–167; BP diastolic 78–92; PULSE 103–118; RESP 15–26; TEMP 36.5–37.4; O2SAT 87–92
[2022-05-27] MEDS: Enoxaparin Sodium 40 MG/0.4 ML SYRINGE SUBCUT (00:20)
[2022-05-27] MEDS: methylPREDNISolone Sod Succ 125 MG/2 ML VIAL 250 MG IVPUSH (00:21)
[2022-05-27] MEDS: Doxycycline Hyclate 100 MG in 0.9 % Sodium Chloride 250 ML 166.67 MG IV (00:21)
[2022-05-27] MEDS: Fat Emulsions 20% 250 ML 23 ML IV (00:22)
[2022-05-27] MEDS: Insulin Lispro 100 UNIT/ML 3 ML VIAL SUBCUT (00:38)
[2022-05-27 00:48] LABS: Glucose, Whole Blood 250 mg/dL (60-115)
[2022-05-27] MEDS: HYDROmorphone HCl 0.5 MG/0.5 ML SYRINGE IVPUSH (01:41)
[2022-05-27] MEDS: Furosemide 40 MG/4 ML VIAL IVPUSH (02:52)
[2022-05-27 02:53] LABS: VBG Base Excess -1.3 mmol/L; VBG HCO3 30 mmol/L (22-26); VBG pCO2 90 mmHg; VBG pH 7.13 (7.32-7.43); VBG pO2 47 mmHg
--- NOTE | 2022-05-27 03:07 | PC.NURSE ---
Addendum entered by Charly Layne RN 05/27/22 06:03: [facility] [employer] NOTIFIED OF PATIENT EXPIRATION... 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 Original Note: CARE ASSUMED 23:15...REMAINS ON BIPAP...05/04 AND FIO2 90% AT HS...SAO2 89-90%...SOMNOLENT...FENTANYL DRIP 50 MCG/HR FOR WORK OF BREATHING...LUNGS DIFFUSE CRACKLES..RESPIRATIONS LABOURED...DECREASED SAO2 AND INCREASED WORK OF BREATHING....FIO2 TO 100%...MULTIPLE CHANGES TO BIPAP...SAO2 70%...LASIX 40MG IV GIVEN...CURRENTLY BIPA 18/10 AND FIO2 100%///VBG DRAN= pH 7.13 PCO2 90...CXR DONE...FENTANYL DRIP HELD PER ICU PA...FAMILY CALLED R/T CHANGE IN STATUS.. AND FAMILY AT BEDSIDE...SINUS TACH HR 110'S-120'S
--- NOTE | 2022-05-27 03:32 | PM.CCPN ---
Subjective Subjective Date of Service: 05/27/22 Interval History: 02:15 nurse notified me that the patient was becoming increasingly hypoxic, her blood pressure is elevated in the 190s and tachycardic and 120s, the patient was also agitated. Patient received 1 mg IV Dilaudid for comfort, on BiPAP adjustments were as made by respiratory therapy and the FiO2 was increased to 100%. Patient appears to be struggling to breathe despite of BiPAP support, using accessory muscles, minimally responsive.? Overall it appears that she is 2-3 L positive as she has been getting medications and TPN.? She does have crackles bilaterally but then again she does have history of interstitial lung disease. Currently her O2 sat is 70% on 14/10 with FiO2 of 100.? Blood pressure 115/88, heart rate 124. 40 mg of Lasix IV ordered, chest x-ray, venous blood gas.? In addition, BiPAP settings were switched from 14/10 to 16/10 which helped increasing her O2 sat to 81%, however she is still having difficulty oxygenating even though her tidal volumes are in the 700?s. At 02:30, I discussed all of this with the patient's and advised him to come to the hospital for I do not think the patient will improve and rather I see her prognosis being very poor particularly being a DNR DNI. ABG shows pH of 7.12, pCO2 90, PO2 46.6 bicarb 29.9 base excess-1.3. I have asked the respiratory therapist to changes settings to 18/10 and to increase the rate to 24 even though the patient has been breathing between 18-20 breaths per minute with hopes of her blowing off the extra CO2 however she appears to be significantly acidotic. [id number] family members are here , I will a meeting with them about the current situation for further treatment goal definition Currently her vital signs 117/65, heart rate 116, O2 sat 89% on 18/10 with FiO2 of 100 and rate of 24 patient still having some accessory muscle usage and still obtunded due to CO2 retention. Family understand the patient has had a continuous decline and that if she does not improve, their best interest to make her comfortable for they do not want her to suffer. 0420 Patient continues to have intermittent episodes of hypoxia despite of current support, fentanyl restarted given the work of breathing. 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 0430 I will dc BiPap support and place her on NC for comfort, will continue Fentanyl gtt, versed prn and scopalamine for secretions. Reason of : Acute hypoxemic respiratory failure the setting of progressive pulmonary fibrosis and interstitial lung disease Asystole was noted on the monitor at 0510 am At this time, the patient has no heartbeat, no palpable pulses, pupils are fixed at 5 mm bilaterally, overall that anterior chamber and cornea of the eyes appear glossy, no spontaneous breathing.? There is no corneal reflexes bilaterally, capillary refill of the fingers and toes is significantly delayed and there is cyanosis with cool extremities.? Patient was pronounced at? ? ? . Certificate Completed. [facility] Center Called by RN.? Critical care time used for critical evaluation of this patient, diagnosis, treatment and coordination of care, review her records and documentation TOTAL CRITICAL CARE TIME? 90? MIN . discussion and coordination with consultants, completely separate from any procedures performed. Patient's care was discussed in detail with Dr. Hinds.? He is aware of all the above as well as the plan of care for this patient. Critical Care Time (minutes): 90 Physical Exam Vital Signs: Vital Signs: Last Vital Signs Temp 99.3 F 05/27/22 02:06 Pulse 118 H 05/27/22 02:06 Resp 26 H 05/27/22 02:57 BP 114/78 05/27/22 02:06 Pulse Ox 88 L 05/27/22 02:06 O2 Del Method 05/27/22 02:06 O2 Flow Rate 50 05/25/22 01:58 FiO2 100 05/27/22 03:05 Oxygen Flow Rate 90 05/26/22 00:00 BMI result Body Mass Index 30.3 Objective Data Labs CBC & Chem 7: 05/26/22 05:00 05/26/22 05:00 Labs: Laboratory Results - last 24 hr 05/26/22 05/26/22 05/26/22 05:00 05:00 05:02 WBC 29.0 H RBC 3.40 L Hgb 10.9 L Hct 34.6 L MCV 101.8 H MCH 32.1 MCHC 31.5 RDW 13.6 Plt Count 187 MPV 9.6 Immature Gran % (Auto) 3.1 H Neut % (Auto) 93.0 H Lymph % (Auto) 0.9 L [place] % (Auto) 2.7 Eos % (Auto) 0.0 Baso % (Auto) 0.3 Lymph # (Auto) 0.3 L [place] # (Auto) 0.8 Eos # (Auto) 0.0 Baso # (Auto) 0.1 Abs Immat Gran (auto) 0.88 H Absolute Neuts (auto) 26.7 H Absolute Nucleated RBC 0.020 H Nucleated RBC % (auto) 0.1 Smear Tech's Comments VERIFIED VBG pH 7.33 VBG pCO2 61 VBG pO2 54 VBG HCO3 32 H VBG O2 Saturation 83.0 VBG Base Excess 5.1 Sodium 142 Potassium 3.5 Chloride 103 Carbon Dioxide 32 H Anion Gap 11 L BUN 25 H D Creatinine 1.19 Estim Creat Clear Calc 37.0 Estimated GFR 45 POC Glucose Random Glucose 173 H Calcium 9.3 Phosphorus 2.9 Magnesium 2.1 Albumin 3.2 L 05/26/22 05/26/22 05/27/22 11:30 17:49 00:34 WBC RBC Hgb Hct MCV MCH MCHC RDW Plt Count MPV Immature Gran % (Auto) Neut % (Auto) Lymph % (Auto) [place] % (Auto) Eos % (Auto) Baso % (Auto) Lymph # (Auto) [place] # (Auto) Eos # (Auto) Baso # (Auto) Abs Immat Gran (auto) Absolute Neuts (auto) Absolute Nucleated RBC Nucleated RBC % (auto) Smear Tech's Comments VBG pH VBG pCO2 VBG pO2 VBG HCO3 VBG O2 Saturation VBG Base Excess Sodium Potassium Chloride Carbon Dioxide Anion Gap BUN Creatinine Estim Creat Clear Calc Estimated GFR POC Glucose 192 H 209 H 250 H Random Glucose Calcium Phosphorus Magnesium Albumin 05/27/22 02:41 WBC RBC Hgb Hct MCV MCH MCHC RDW Plt Count MPV Immature Gran % (Auto) Neut % (Auto) Lymph % (Auto) [place] % (Auto) Eos % (Auto) Baso % (Auto) Lymph # (Auto) [place] # (Auto) Eos # (Auto) Baso # (Auto) Abs Immat Gran (auto) Absolute Neuts (auto) Absolute Nucleated RBC Nucleated RBC % (auto) Smear Tech's Comments VBG pH 7.13 L* VBG pCO2 90 VBG pO2 47 VBG HCO3 30 H VBG O2 Saturation 68.0 VBG Base Excess -1.3 Sodium Potassium Chloride Carbon Dioxide Anion Gap BUN Creatinine Estim Creat Clear Calc Estimated GFR POC Glucose Random Glucose Calcium Phosphorus Magnesium Albumin Microbiology Microbiology Results: Microbiology 05/22/22 18:53 Blood - Venous Blood Culture - Preliminary No growth after 48 hours. 05/22/22 17:46 Blood - Venous Blood Culture - Preliminary No growth after 48 hours. Quality Stroke Does the patient have a stroke diagnosis?: No VTE Prior VTE?: No VTE Risk Level:: Medical - moderate - high VTE Device Contraindication: Treatment Not Indicated VTE Drug Contraindication: N/A - Med Ordered
[2022-05-27 03:48] LABS: Venous Blood Gas Refer to POC result
[2022-05-27] MEDS: HYDROmorphone HCl 1 MG/ML SYRINGE IVPUSH (04:39)
[2022-05-27] MEDS: Scopolamine 1.5 MG PATCH.TD.3 EAR-BEHIND (04:55)
[2022-05-27] MEDS: fentaNYL citrate/NS 1,000 MCG/100 ML PLAST..BAG 10 MCG IVCONT (04:58)
--- NOTE | 2022-05-27 05:18 | PM.DS ---
DS: Providers Provider Date of Service: 05/27/22 Date of admission: 05/22/22 22:04 Date of discharge: 05/27/22 Primary care physician: Soren Yan MD Admitting clinician: Iliana Alamo Attending physician on admission: Iliana Alamo Consults: 05/24/22 12:16 Consult to Pulmonology Routine Consulting Provider: Kellie Lazar Reason for consultation: ILD with severe hypoxemia Has provider been notified: Yes 05/24/22 12:25 Consult to Infectious Diseases Routine Consulting Provider: Elissa Hernandez Reason for consultation: Acute resp failure Has provider been notified: Yes Attending physician on discharge: Marvel Hinds Discharging clinician: Burke Hdz DS: Diagnosis Discharge Diagnosis (1) Respiratory failure with hypoxia and hypercapnia: Status: Acute (2) COPD exacerbation: Status: Acute DS: Summary Hospital Course Hospital Course: Admission/discharge diagnosis 1. Underlying progressive pulmon fibrosis/interstitial lung disease.? 2. Acute hypoxemic resp failure.? 2? above.? 3. Community-acquired pneumonia 4. Hypernatremia. ? 5. Hypokalemia.? 6. ?Mild protein calorie malnutrition syndrome 7. COPD exacerbation ? Comorbidities 1 obesity 2 incisional hernia 3. Sigmoid diverticulitis 4. Hysterectomy 5. Bilateral hip replacements 6. History of cholecystectomy ? Reason of : Acute? hypoxemic respiratory failure the setting of progressive pulmonary fibrosis and interstitial lung disease ? The patient peacefully at 0510 am on 05/27/2022 HPI/hospital course: Mrs. Huynh was transferred to the ICU May 24 with resp distress and acute hypoxemic resp failure. The patient is a 72 yo F with PMHx of pulmonary fibrosis on 2L at home, COPD, mild dementia on Aricept, GERD, and depression.? She is a long time patient of Dr. Lazar. Dr Hinds spoke to the family at length 05/25/2022 and they described to me in detail how slowly but relentlessly over the past few months she?s been going downhill with her exercise capacity.? Maybe about six months ago she started to need oxygen at home.? Over time, she started to need the oxygen when going out shopping.? Then her ability to do housework deteriorated bec of MEHTA.? Then they had to buy her an easy chair to sit in during the day.? Then she started sleeping in the easy chair.? Recently she could hardly walk bec of MEHTA. She was brought to ED by family on May 22 bec of increasing SOB w increased oxygen requirement. SpO2 at home was in the 40s.? The patient reported feeling feverish, having chills, increased weakness, cough, chest tightness, and some sputum production. On arrival to the ED, SpO2 was 86% on 3 L of oxygen, in mod resp distress.? Labs were notable for WBC count 14, hemoglobin 11, BUN/creat 20/1.0. VBG 7.45/29/-1. Lactic acid 3.5, BNP? 223.? Viral serologies all negative.? Chest x-ray showed diffusely increased reticular markings throughout both lungs consistent with interstitial lung disease, with very slightly increased patchy airspace opacities in the right mid and lower lung compared to a prior film of May 19. The patient was admitted to medicine with dx of underlying pulmonary fibrosis, acute CAP, viral vs bacterial, and poss COPD exacerbation.? She was given Abx, sterhoids, and BDs.? On HFNC 50L/50%, she was Sat?ing high 90s.? On the night of May 23, oxygenation worsened and she was changed to NRB FM.? Steroids were bumped to 60mg q6hr.? The next morning, SpO2 was even worse, and HFNC was added to NRB FM.? With Sat?s still low, a repeat CXR was worse, with more patchy opacification in the LLs.? She was switched to vanco and Zosyn, given Lasix, and tx to ICU for NIV. In ICU she was started on BiPAP.? A CVL was placed for access and monitoring.? The post procedure film showed even worse diffuse interstitial infiltrates and patchy LL opacities.? On my exam in the ICU, she was awake and appropriately responsive.? Surprisingly, she looked nonplussed, and essentially nontoxic.? She just had mild-moderately labored breathing.? She did well on BiPAP initially, then we had to give her prn opiates.? She had severe MEHTA, even w turning in bed. On 05/25/2022 her FiO2 was up to 100%, from 70-80% the prev day.? We started her on a fentanyl infusion and pulse steroids.? After that, she was dramatically more comfortable, on lower BiPAP settings, with RR down to 20, Vt?s up to mid-500?s on On BiPAP 05/04.? Sat 89-91% on 90% FiO2. On BiPAP 05/04/90%, her overall resp status is unchanged.? RR 18-19, Vt 550, Sat 90-92%.? CVBG this morning 7.33/61/+5.? pCO2 is signif higher.? HR 96, BP 122/66.? She continues afebrile.? Not as animated as yesterday, but she just got a bolus of Dilaudid.? No JVD at 30?.? Chest maybe some light fine rales.? RRR, normal-sounding S1 and S2, with no murmur or gallops.? Abdomen is benign.? She has trivial edema. Dr Hinds spoke at length with the family in conference, including the (1? HCP) and granddaughter (2? HCP).? As noted above, this deterioration has been slow but inexorable, over months.? This is by no means something sudden.? They have been expecting it.? And the patient has told them many times that she does not want to be intubated. Dr Hinds discussed the nature of pulmonary fibrosis with them, and noted that other than steroids, there is no treatment, this is an inexorable dz, and once it gets to this level, survivors are few.? I discussed that intubation wouldn?t do anything for her survivability.? Even without my saying so, the family was fully on board with the patient?s wishes not to be intubated.? They just want to make sure that she doesn?t suffer a DNR DNI order was written. On 05/27/2022 around 02:00, the patient decompensated despite of all of our efforts, multiple adjustments to the BiPAP were made, FiO2 was maximized, ABG obtained reveal significant respiratory acidosis with hypercapnic state ABG shows pH of 7.12, pCO2 90, PO2 46.6 bicarb 29.9 base excess-1.3. Her chest x-ray shows worsening pulmonary infiltrates in a diffuse manner with near complete whiteout of both lungs.? Patient was given opioids and family was contacted given that her O2 sat was in the 70s for almost 1 hour despite of our efforts, subsequently it improved obtaining a set of 89 and 90% but the patient continues to have work of breathing even though she has been getting narcotics. At this point the patient was on BiPAP at 18/10, rate of 24 an FiO2 of 100%.? 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 The patient peacefully at 0510 am on 05/27/2022 Time Spent with Patient Time attestation: Total time managing care of this patient today ____ minutes. Discharge coordination time: Greater than 30 minutes Quality: Safe Use of Opioids Does Pt have an Active Cancer Diagnosis on the Problem List?: No Quality: Stroke Does the patient have a stroke diagnosis?: No Physical Exam Vital Signs: Vital Signs: Last Vital Signs Temp 97.7 F 05/27/22 04:00 Pulse 103 H 05/27/22 04:00 Resp 25 H 05/27/22 04:09 BP 130/79 05/27/22 04:00 Pulse Ox 91 L 05/27/22 04:00 O2 Del Method 05/27/22 04:00 O2 Flow Rate 50 05/25/22 01:58 FiO2 100 05/27/22 04:00 Oxygen Flow Rate 90 05/26/22 00:00 BMI result Body Mass Index 30.3 DS: Data Data Completed and Pending Completed studies during hospitalization [Text1]: Procedures Excision of Sigmoid Colon, Open Approach (07/13/20) Excision of Transverse Colon, Percutaneous Endoscopic Approach (07/13/20) Labs on day of discharge: Laboratory Results - last 24 hr 05/26/22 05/26/22 05/26/22 05:00 05:00 11:30 WBC 29.0 H RBC 3.40 L Hgb 10.9 L Hct 34.6 L MCV 101.8 H MCH 32.1 MCHC 31.5 RDW 13.6 Plt Count 187 MPV 9.6 Immature Gran % (Auto) 3.1 H Neut % (Auto) 93.0 H Lymph % (Auto) 0.9 L [place] % (Auto) 2.7 Eos % (Auto) 0.0 Baso % (Auto) 0.3 Lymph # (Auto) 0.3 L [place] # (Auto) 0.8 Eos # (Auto) 0.0 Baso # (Auto) 0.1 Abs Immat Gran (auto) 0.88 H Absolute Neuts (auto) 26.7 H Absolute Nucleated RBC 0.020 H Nucleated RBC % (auto) 0.1 Smear Tech's Comments VERIFIED VBG pH VBG pCO2 VBG pO2 VBG HCO3 VBG O2 Saturation VBG Base Excess Sodium 142 Potassium 3.5 Chloride 103 Carbon Dioxide 32 H Anion Gap 11 L BUN 25 H D Creatinine 1.19 Estim Creat Clear Calc 37.0 Estimated GFR 45 POC Glucose 192 H Random Glucose 173 H Calcium 9.3 Phosphorus 2.9 Magnesium 2.1 Albumin 3.2 L 05/26/22 05/27/22 05/27/22 17:49 00:34 02:41 WBC RBC Hgb Hct MCV MCH MCHC RDW Plt Count MPV Immature Gran % (Auto) Neut % (Auto) Lymph % (Auto) [place] % (Auto) Eos % (Auto) Baso % (Auto) Lymph # (Auto) [place] # (Auto) Eos # (Auto) Baso # (Auto) Abs Immat Gran (auto) Absolute Neuts (auto) Absolute Nucleated RBC Nucleated RBC % (auto) Smear Tech's Comments VBG pH 7.13 L* VBG pCO2 90 VBG pO2 47 VBG HCO3 30 H VBG O2 Saturation 68.0 VBG Base Excess -1.3 Sodium Potassium Chloride Carbon Dioxide Anion Gap BUN Creatinine Estim Creat Clear Calc Estimated GFR POC Glucose 209 H 250 H Random Glucose Calcium Phosphorus Magnesium Albumin Preliminary micro results at discharge 05/22/22 18:53 Blood Culture - Preliminary Blood - Venous No growth after 48 hours. 05/22/22 17:46 Blood Culture - Preliminary Blood - Venous No growth after 48 hours. Discharge Plan Discharge Date/Time: 05/27/22 05:10 Patient Disposition: Discharge Diagnosis: ACUTE HYPOXIC RESPIRATORY FAILURE Referrals: Soren Yan MD [Primary Care Provider] - 1 Week Discharge Medications: No Action albuterol sulfate [Ventolin HFA] 90 mcg/actuation HFA aerosol inhaler 2 puff inhalation Q6H PRN (Reason: shortness of breath or wheezing) 30 Days Qty: 1 6RF benzonatate 200 mg capsule 200 mg PO TID PRN (Reason: for cough) Qty: 90 3RF prednisone 50 mg tablet 50 mg PO DAILY Qty: 4 0RF azithromycin 250 mg tablet 250 mg PO DAILY 4 Days Qty: 4 0RF cefuroxime axetil 250 mg tablet 1 tab PO BID codeine-guaifenesin 10-100 mg/5 mL liquid 5 ml PO BID PRN (Reason: Cough) montelukast 10 mg tablet 10 mg PO DAILY famotidine 40 mg tablet 40 mg PO DAILY PRN (Reason: Acid Reflux) sertraline 50 mg tablet 50 mg PO DAILY donepezil 5 mg tablet 5 mg PO BEDTIME fluticasone propion-salmeterol [AirDuo RespiClick] 113-14 mcg/actuation aerosol powdr breath activated 1 inh inhalation BID 30 Days Qty: 1 4RF Discharge Orders: Discharge Order (Routine); Ordered 05/27/22 Ordered By: Burke Hdz Discharge Date/Time: 05/27/22 05:55
--- NOTE | 2022-05-27 10:59 | PC.NURSE ---
Family notified RN of choice home - [facility], [address] [place] [address]. Post mortem care completed. Placed into body bag. Body bag and patient both labeled with appropriate tags. dimension warehouse supervisor notified, awaiting transport of body to [facility] [place], [place].
== END 2022-05-27 05:55 | disposition expired | DRG 193 ==
LOC: HO.ED 20:54 → HO.EDOVER 22:21 → HO.S3 05-23 18:19 → HO.ICU 05-24 09:53
PROVIDERS: Hospitalist; Nurse Practitioner Family; Physician Assistant; Physician Assistant Medical; Admitting Provider Internal Medicine; Emergency Provider Internal Medicine; PCP Internal Medicine; Visit Provider Anesthesiology
DX: J12.9 Viral pneumonia, unspecified (principal); J96.21 Acute and chronic respiratory failure with hypoxia; J44.0 Chronic obstructive pulmonary disease with (acute) lower respiratory infection; J44.1 Chronic obstructive pulmonary disease with (acute) exacerbation; E87.0 Hyperosmolality and hypernatremia; E44.1 Mild protein-calorie malnutrition; E87.4 Mixed disorder of acid-base balance; J15.9 Unspecified bacterial pneumonia; F03.90 Unspecified dementia, unspecified severity, without behavioral disturbance, psychotic disturbance, mood disturbance, and anxiety; J84.10 Pulmonary fibrosis, unspecified; Z66 Do not resuscitate; E87.5 Hyperkalemia; E86.0 Dehydration; F32.A Depression, unspecified; E66.9 Obesity, unspecified; Z68.30 Body mass index [BMI] 30.0-30.9, adult; Z51.5 Encounter for palliative care; Z99.81 Dependence on supplemental oxygen; Z20.822 Contact with and (suspected) exposure to COVID-19; Z96.643 Presence of artificial hip joint, bilateral; Z91.040 Latex allergy status; Z79.51 Long term (current) use of inhaled steroids; Z79.52 Long term (current) use of systemic steroids; Z79.899 Other long term (current) drug therapy
CPT/HCPCS: 0241U; 36415; 71045; 80048; 80053; 80076; 82040; 82803; 82947; 83605; 83735; 83880; 84100; 84145; 84478; 84484; 85007; 85025; 85027; 85610; 85730; 87040; 93005; 93306; 94640; 94660; 96361; 96365; 96367; 96375; 99285; C1758; J0456; J0610; J0696; J1170; J1650; J1940; J2405; J2543; J2920; J2930; J3010; J3370; J3475